=== PATIENT | female | born 1935 | race Caucasian/White ===

== ENCOUNTER 2017-03-02 16:27 | Inpatient (IN) | payer MEDICARE, OTHER ==
[2017-03-02] VITALS: BP 157/66; PULSE 67; RESP 18; TEMP 96.7; O2SAT 99
[~2017-03-02] VITALS: Ht 166.4 cm; Wt 69.8 kg
[~2017-03-02 16:27] MED LIST: ACET-2723 PO; ASPI-730 PO; ATEN-36 PO; ATOR80TA76 PO; CARB15DR82 BOTH EYES; WARF2.5T41 PO
--- OUTSIDE RECORDS SUMMARY | 2017-03-02 16:36 | XMS REPORT | Continuity of Care Document ---
Author Author [facility] Organization [facility] Address Unknown Phone Unavailable Support Name Relationship Address Phone JAVIER ONEAL MD Caregiver [address] [place] [address] Unavailable MISTY LEWIS MD Caregiver [address] [place] [id number] Unavailable DENISA GARCIA Next Of Kin [address] [place] [phone] Insurance Providers Guarantor Amber Hughes Address [address] [address] Email DENIED/NO TO PT PORT Payer Medicare Policy Number [id number] Subscriber's Name Amber Hughes 17 Self Effective Date 99 Payer [place] Policy Number [id number] Subscriber's Name Amber Hughes Relationship 18 Self Group Number [id number] Chief Complaint and Reason for Visit Chief Complaint Eye Problems Reason for Visit Retinal detachment Problems Active Problems Medical Problem Onset Date Status Heart palpitations Unknown Acute Heart palpitations Unknown Acute Vertigo Unknown Acute Past Problems Medical Problem Onset Date Retinal detachment Unknown Medications Current Home Medications Medication Dose Units Route Directions Days Qty Instructions Start Date Acetaminophen (Tylenol Extra Strength) 500 Mg Tablet 1 Tab Oral Every 6 Hours as needed for Pain 10 Days 40 Tablet 11/30/16 Aspirin 325 Mg Tablet 1 Tab Oral Daily 05/03/09 Atenolol 25 Mg Tablet 0.5 Tab Oral Daily 03/01/14 Atorvastatin Calcium 80 Mg Tablet 1 Tab Oral Daily 08/31/15 Carboxymethylcellulose Sodium (Refresh Tears) 15 Ml Drops 1 Drop Both Eyes Twice A Day 08/31/15 Warfarin Sodium (Coumadin) 2.5 Mg Tablet 1 Tab Oral Daily Past Home Medications Medication Directions Ordered Status Acetaminophen (Tylenol Extra Strength) 500 Mg Tablet, 1 Tab Oral Every 6 Hours as needed for Pain 11/30/16 Discontinued Acetaminophen (Tylenol Extra Strength) 500 Mg Tablet, 1 Tab Oral Every 6 Hours as needed for Pain 08/31/15 Discontinued Ezetimibe/Simvastatin (Vytorin 10/80 Tablet) 1 Tab Tablet, 1 Tab Oral Bedtime 05/04/09 Discontinued Social History Social History Problem Response Recorded Date/Time Onset Date Status Hx Substance Use No 11/30/2016 8:37am Not Applicable Not Applicable Hx Alcohol Use No 11/30/2016 8:37am Not Applicable Not Applicable Tobacco Usage none 03/01/2014 6:38pm Not Applicable Not Applicable Query Response Start Date Stop Date Smoking Status Never smoker Hospital Discharge Instructions No hospital discharge instructions. Plan of Care Discharge Date 11/30/16 10:17am Disposition 01 DISCHARGED HOME, SELF-CARE Condition at Discharge Stable Instructions/Education Provided DI for Detached Retina Prescriptions See Medication Section Referrals JAVIER ONEAL MD Address: [address] [place] [address] [phone] Additional Instructions/Education Via Dr. Aquino's office tomorrow morning at [address] [place] [id number] Care Plan and Goals Physician Care Plan Problem: Retinal detachment Goal: Follow up with primary care provider Instructions: Take medications and follow care plan as discussed/written Functional Status No functional status results. Allergies, Adverse Reactions, Alerts Allergen Type Severity Reaction Status Last Updated Sulfa (Sulfonamide Antibiotics) Allergy Intermediate HIVES Active 11/30/16 Immunizations Query Response on File Recorded Date/Time Hx Influenza Vaccination Y fall 200703/01/14 8:55pm Hx Pneumococcal Vaccination Y CURRENT 03/01/14 8:55pm Hx Influenza Vaccination Y fall 200703/01/14 8:55pm Influenza Vaccine Hx "NOT YET" - "I AM SUPPOSED TO GET IT THIS NEXT THURSDAY" 08/31/15 1:12pm Tdap Vaccine Hx UNKNOWN - SKIN INTACT 11/30/16 8:23am Vital Signs Acute Vital Signs Vital Response Date/Time Temperature (Fahrenheit) 97.5 deg F (96.8 - 99.1) 11/30/2016 8:23am Temperature (Calculated Celsius) 36.16425 degrees C (36.0 - 37.3) 11/30/2016 8:23am Pulse Rate (adult) 78 bpm (60 - 100) 11/30/2016 10:12am Respiratory Rate 16 breaths/min (10 - 20) 11/30/2016 10:12am O2 Sat by Pulse Oximetry 98 % (90 - 100) 11/30/2016 10:12am Blood Pressure 158/74 mm Hg 11/30/2016 10:12am Height (Feet) 5 feet 11/30/2016 8:23am Height (Inches) 5.50 inches 11/30/2016 8:23am Weight (Kilograms) 69.900 kg 11/30/2016 8:23am Body Mass Index (BMI) 25.0 11/30/2016 8:23am Results Laboratory Results Test Name Result Units Flags Reference Collection Date/Time Result Date/ Time Comments Triglycerides Level 92 MG/DL 35-135 11/12/2016 10:18am 11/13/2016 1: 14am HDL Cholesterol Direct 49 MG/DL 40-60 11/12/2016 10:18am 11/13/2016 1: 14am LDL Cholesterol Direct 59.25 MG/DL L 100-129 11/12/2016 10:18am 2015 1:25am Total Creatine Kinase 85 U/L 30-135 11/12/2016 10:18am 11/12/2016 10: 31am White Blood Count 6.4 T/MM3 4.5-11.0 11/30/2016 8:55am 11/30/2016 9: 11am Red Blood Count 4.83 M/MM3 4.00-5.20 11/30/2016 8:55am 11/30/2016 9: 11am Hemoglobin 13.9 GM/DL 12-16 11/30/2016 8:55am 11/30/2016 9:11am Hematocrit 41.8 % 36-46 11/30/2016 8:55am 11/30/2016 9:11am Mean Corpuscular Volume 86.5 UM3 80-100 11/30/2016 8:55am 11/30/2016 9: 11am Mean Corpuscular Hemoglobin 28.8 UUG 26-34 11/30/2016 8:55am 2016 9:11am Mean Corpuscular Hemoglobin Concent 33.3 GM/DL 31-37 11/30/2016 8:55am 11/30/2016 9:11am RDW Standard Deviation 40.9 FL 36.9-50.2 11/30/2016 8:55am 11/30/2016 9 :11am Platelet Count 226 T/MM3 130-400 11/30/2016 8:55am 11/30/2016 9:11am Mean Platelet Volume 10.2 UM3 9.4-12.4 11/30/2016 8:55am 11/30/2016 9: 11am Neutrophils (%) (Auto) 55.6 % 33-66 11/30/2016 8:55am 11/30/2016 9: 11am Lymphocytes (%) (Auto) 36.3 % 23-45 11/30/2016 8:55am 11/30/2016 9: 11am Monocytes (%) (Auto) 6.3 % 0-9.0 11/30/2016 8:55am 11/30/2016 9:11am Eosinophils (%) (Auto) 1.1 % 0-4 11/30/2016 8:5511/30/2016 9:11am Basophils (%) (Auto) 0.5 % 0-2 11/30/2016 8:5511/30/2016 9:11am Immature Granulocyte % (Auto) 0.2 % 0.0-0.5 11/30/2016 8:552016 9:11am Absolute Neutrophils (auto) 3.6 T/MM3 1.8-7.7 11/30/2016 8:55am 2016 9:11am Absolute Lymphocytes (auto) 2.3 T/MM3 1-4.8 11/30/2016 8:55am 2016 9:11am Absolute Monocytes (auto) 0.4 T/MM3 0-0.8 11/30/2016 8:55am 11/30/2016 9:11am Absolute Eosinophils (auto) 0.1 T/MM3 0-0.5 11/30/2016 8:552016 9:11am Absolute Basophils (auto) 0.0 T/MM3 0-0.2 11/30/2016 8:55am 11/30/2016 9:11am Absolute Immature Granulocyte (auto 0.01 T/MM3 0.00-0.03 11/30/2016 8: 55am 11/30/2016 9:11am Prothromb Time International Ratio 2.46 H 0.76-1.04 11/30/2016 8:55am 11/30/2016 9:10am THERAPUTIC RANGE=2.00-3.00 FOR ANTI-THROMBOSIS THERAPUTIC RANGE=2.50-3.50 FOR IMPLANTED VALVE Icterus Index < 2 0-7 11/30/2016 8:55am 11/30/2016 9:15am Chemistry Specimen Hemolysis < 15 0-25 11/30/2016 8:55am 11/30/2016 9 :15am 0-25: Specimen Exhibited No Hemolysis. Turbidity < 20 0-20 11/30/2016 8:55am 11/30/2016 9:15am Sodium Level 139 MEQ/L 134-144 11/30/2016 8:55am 11/30/2016 9:15am Potassium Level 4.2 MEQ/L 3.6-5 11/30/2016 8:55am 11/30/2016 9:15am Chloride Level 102 MEQ/L 98-107 11/30/2016 8:55am 11/30/2016 9:15am Carbon Dioxide Level 26 MEQ/L 22-30 11/30/2016 8:55am 11/30/2016 9: 15am Anion Gap 11 MEQ/L 5-15 11/30/2016 8:55am 11/30/2016 9:15am Blood Urea Nitrogen 16.0 MG/DL 7-17 11/30/2016 8:55am 11/30/2016 9: 15am Creatinine 0.7 MG/DL 0.7-1.2 11/30/2016 8:55am 11/30/2016 9:15am BUN/Creatinine Ratio 23 RATIO 6-26 11/30/2016 8:55am 11/30/2016 9:15am Glomerular Filtration Rate Calc 80 11/30/2016 8:55am 11/30/2016 9: 15am Glucose Level 97 MG/DL 65-110 11/30/2016 8:55am 11/30/2016 9:15am Calculated Osmolality 269 MOSM/KG 261-280 11/30/2016 8:55am 11/30/2016 9:15am Calcium Level 9.1 MG/DL 8.4-10.2 11/30/2016 8:55am 11/30/2016 9:15am Total Bilirubin 0.70 MG/DL 0.20-1.30 11/30/2016 8:55am 11/30/2016 9: 15am Alkaline Phosphatase 105 U/L 38-126 11/30/2016 8:55am 11/30/2016 9: 15am Total Protein 7.8 G/DL 6.3-8.2 11/30/2016 8:55am 11/30/2016 9:15am Albumin 4.2 G/DL 3.5-5.0 11/30/2016 8:55am 11/30/2016 9:15am Globulin 3.6 G/DL 2.4-3.6 11/30/2016 8:55am 11/30/2016 9:15am Albumin/Globulin Ratio 1.2 RATIO 1.1-2.2 11/30/2016 8:55am 11/30/2016 9 :15am Aspartate Amino Transf (AST/SGOT) 31 U/L 14-36 11/30/2016 8:55am 2016 9:15am Alanine Aminotransferase (ALT/SGPT) 35 U/L 9-52 11/30/2016 8:55am 11/30 9:15am Troponin I 0.012 ng/ml 0-0.12 11/30/2016 8:55am 11/30/2016 9:26am Troponin values with a difference of 55% increase from orginal troponin value represent a true biological DELTA value. (%increase Calc=Orginal Troponin value, divided by subsequent Troponin value, multiplied by 100) Name: AMBER HUGHES Unit #: [id number] : 1935 Sex: F Admit Date: Loc / Svc: ED Discharge Date: DIAGNOSTIC IMAGING REPORT Report #: [id number] [facility] TEJAL [place] Indication: ITS.REASON: Evaluate for stroke loss of vision right eye PROCEDURE: CT HEAD W/O CONTRAST: Encounter: Initial Comparison: August 31, 2015 Technique: Axial CT images through the head were performed without contrast. Iterative Reconstruction dose reducing technique was utilized. FINDINGS: The ventricles are of normal size, shape, and contour for the patient's age. There are scattered areas of low attenuation in the white matter which most likely represent changes from chronic microvascular ischemia. The brainstem, cerebellum, and cerebral hemispheres otherwise have a normal morphology and CT attenuation. There is no evidence of midline displacement. No hemorrhage, signs of acute territorial stroke, mass effect, mass lesions, or edema is evident. The visualized portions of the skull base, midface, and calvarium demonstrate no abnormality. The paranasal sinuses are well aerated and free of significant disease. The tympanic and mastoid cavities appear normal. IMPRESSION: No acute intracranial abnormality or hemorrhage. Stable head CT. There is a preliminary report by virtual radiologic. . Procedures Procedure Status Date Provider(s) Routine venipuncture Completed 11/12/16 Comprehen metabolic panel Completed 11/12/16 Assay of ck (cpk) Completed 11/12/16 Assay of lipoprotein Completed 11/12/16 Assay of blood lipoprotein Completed 11/12/16 Assay of triglycerides Completed 11/12/16 Prothrombin time Completed 11/12/16 Encounters Encounter Location Arrival/Admit Date Discharge/Depart Date Attending Provider Departed Emergency Room [facility] 11/30/16 8:21am 11/30/16 10: 17am MISTY LEWIS MD Registered Clinic [facility] 11/12/16 10:00am FREDERICK BLANCHARD MD Discharged Recurring [facility] 10/08/16 12:26pm 11/15/16 11: 19pm FREDERICK BLANCHARD MD Recent Diagnosis
--- OUTSIDE RECORDS SUMMARY | 2017-03-02 16:36 | XMS REPORT | Continuity of Care Document ---
Author Author [facility] Organization [facility] Address Unknown Phone Unavailable Allergies Medications Problems Procedures Code Description Performed By Performed On 14.54 DETACH RETINA LASER COAG Jerome Aquino MD 11/04/2013 14.74 MECH VITRECTOMY NEC Jerome Aquino MD 11/04/2013 Results Test Result Range HEMOGLOBIN - 11/04/13 15:16 MEAN CELL VOLUME 86.5 fl 80.0-100.0 HEMOGLOBIN 13.6 gm/dL 12.0-16.0 METABOLIC PANEL, BASIC - 11/04/13 15:16 POTASSIUM 4.5 mmol/L 3.5-5.3 EST GFR (MDRD) > 60 mL/min > 59 ANION GAP 10 mmol/L 5-15 EST CrCl (CG) 58 mL/min > 59 GLUCOSE 93 mg/dL 70-99 CALCIUM 8.6 mg/dL 8.5-10.1 BLOOD UREA NITROGEN 16 mg/dL 7-20 CREATININE 0.7 mg/dL 0.6-1.0 SODIUM 136 mmol/L 135-148 CHLORIDE 100 mmol/L 98-110 CARBON DIOXIDE 26 mmol/L 21-32 PROTHROMBIN TIME WITH INR - 11/04/13 15:37 INTERNATIONAL NORMAL RATIO 2.2 0.9-1.1 PROTHROMBIN TIME 23.6 sec 9.3-12.2 Encounters ACCT No. Visit Date/Time Discharge Status Pt. Type Provider Facility Loc./Unit Complaint [id number] 11/04/2013 14:10:00 2012 19:20:00 DIS Outpatient Kenia VASQUEZ, Jerome Richey [facility] KYLE
--- OUTSIDE RECORDS SUMMARY | 2017-03-02 16:36 | XMS REPORT | Referral Summary ---
Author Author [facility], [facility] Organization [facility] Address Unknown Phone Unavailable Care Team Providers Care Clothes Presser Name Role Phone Wiley Maddox Primary Care Physician [phone] Encounter VC Date(s): 09/18/16 - 09/18/16 [facility], [address] [place] [address] [place] Discharge Diagnosis: Encounter for removal of sutures Discharge Disposition: 01-Home or Self Care Attending Physician: Steven Maddox MD Admitting Physician: Steven Maddox MD Vital Signs Most recent to 1 oldest [Reference Range]: Temperature Tympanic 36 degC [36.6-38.1 degC] *LOW* (09/18/16 2:12 PM) Peripheral Pulse 87 bpm Rate [60-100 bpm] (09/18/16 2:12 PM) Blood Pressure 121/50 mmHg [90-140/60-90 mmHg] (09/18/16 2:12 PM) Problem List Condition Effective Dates Status Health Status Informant Chronic interstitial Active cystitis (disorder)(Confirmed ) Closed dislocation Active of thumb(Confirmed) Closed dislocation Active of thumb(Confirmed) Closed dislocation Active of thumb(Confirmed) Coronary Active arteriosclerosis (disorder)(Confirmed ) Coronary artery Active disease(Confirmed)1 Hx of Active hypercoagulable anticardiolipin(Conf irmed)2 Hyperlipidemia(Confi Active rmed)3 Painless microscopic Active hematuria(Confirmed) 4 Dyslipidemia(Confirm Active ed) Dermatophytosis of Active nail(Confirmed)5 Chronic pelvic pain Active syndrome(Confirmed)6 PAD(Confirmed)7 Active Peripheral vascular Active disease (disorder)(Confirmed ) Postmenopausal Active HRT(Confirmed)8 Retinal Active detachment(Confirmed ) TIA(Confirmed)9 Active Trigonitis(Confirmed Active )10 Vitamin D deficiency Active (disorder)(Confirmed ) 1See conversion document. 2See conversion document. 3See conversion document. 4See conversion document. 5See conversion document. 6See conversion document. 7See conversion document. 8See conversion document. 9see conversion document. 10See conversion document. Allergies, Adverse Reactions, Alerts Substance Reaction Severity Status sulfamethoxazole Active sulfanilamide topical Itching Active Medications aspirin 0 Refill(s) Start Date: 04/28/14 Status: Ordered atenolol 25 mg oral tablet 1 tabs, Oral, Daily, 0 Refill(s) Start Date: 04/28/14 Status: Ordered atorvastatin 80 mg oral tablet tabs, Oral, Bedtime (once a day), 0 Refill(s) Start Date: 02/08/15 Status: Ordered Tylenol Extra Strength 500 mg, Oral, qPM, 0 Refill(s) Start Date: 05/12/16 Status: Ordered warfarin Daily, 0 Refill(s) Start Date: 04/28/14 Status: Ordered Results No data available for this section Immunizations Vaccine Date Refusal Reason tetanus/diphth/pertuss (Tdap) adult/adol 07/31/06 influenza virus vaccine, inactivated 08/11/16 influenza virus vaccine, inactivated 09/04/15 influenza virus vaccine, inactivated1 08/29/14 influenza virus vaccine, live 09/01/13 influenza virus vaccine, live 09/06/12 pneumococcal 23-polyvalent vaccine 01/14/02 1Location History: See scanned document Procedures Procedure Date Related Diagnosis Body Site Cystoscopy, urethral calibration, 05/04/09 hydrodistention, and SLT laser vaporization1 Cataract, left2 2009 Cataract, right3 2008 Cardiac bypass4 1999 MMK5 1995 CABG6 1992 Hysterectomy - NABIL/BSO7 1988 Cholecystectomy Laser eye surgery8 1See conversion document. 2See conversion document. 3See conversion document. 4See conversion document. 5See conversion document. 6See conversion document. 7See conversion document. 8See conversion document. Social History Social History Type Response Smoking Status Never smoker Assessment and Plan Extracted from: Title: OV Author: Steven Maddox MD Date: 09/18/16 Impression and Plan Diagnosis Encounter for removal of sutures ([id number]-EV Z48.02, Discharge, Medical).
--- OUTSIDE RECORDS SUMMARY | 2017-03-02 16:36 | XMS REPORT | Referral Summary ---
Author Author [facility], [facility] Organization [facility] Address Unknown Phone Unavailable Care Team Providers Care Leaf Stripper Name Role Phone Wiley Maddox Primary Care Physician [phone] Encounter VC Date(s): 09/08/16 - 09/08/16 [facility], [address] [place] [address]- Discharge Diagnosis: Pigmented skin lesion of uncertain nature Discharge Diagnosis: Pain of right thumb Discharge Disposition: 01-Home or Self Care Attending Physician: Steven Maddox MD Admitting Physician: Steven Maddox MD Vital Signs Most recent to 1 oldest [Reference Range]: Temperature Tympanic 35.4 degC [36.6-38.1 degC] *LOW* (09/08/16 12:53 PM) Peripheral Pulse 82 bpm Rate [60-100 bpm] (09/08/16 12:53 PM) Blood Pressure 138/68 mmHg [90-140/60-90 mmHg] (09/08/16 12:53 PM) Problem List Condition Effective Dates Status [...] smoker Assessment and Plan Extracted from: Title: Lesion excision of dorsum Author: Steven Maddox MD Date: 09/08 right foot Assessment/Plan 1.Pigmented skin lesion of uncertain nature 2.Pain of right thumb Regarding the thumb pain, 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 I reviewed the prior x-rays at the time of injury and April and it does extend down to the joint surface. We discussed that and I offered re-x-ray/ reevaluation but she wants to just observe for now. Discussed post procedure care and will follow-up again in 10-14 days for suture removal. Specimen was sent for pathology analysis.
--- NOTE | 2017-03-02 16:40 | NUR ---
Arrival Patient arrived on unit at this time via wheelchair. Patient moved self from wheelchair to bed without assistance. Patient oriented to unit. Will continue to monitor.
[2017-03-02 16:59] VITALS: BP 168/78; PULSE 70; RESP 16; TEMP 96.6; O2SAT 97
[2017-03-02 17:01] VITALS: Ht 166.4 cm; Wt 69.8 kg
[2017-03-02] MEDS ORDERED: NORMAL SALINE 500 ML IV SCH (17:05)
[2017-03-02] MEDS ORDERED: PANTOPRAZOLE 40mg INJECTION IV ONE (17:05)
[2017-03-02] MEDS ORDERED: ONDANSETRON 4mg/2ml INJECTION IV PRN (17:15)
--- NOTE | 2017-03-02 17:43 | HPPDOC ---
WILNER LANCE WATCH CRYSTAL CUTTER 03/02/17 1656: HPI - Adult Date DATE: 03/02/17 TIME: 16:52 General Chief Complaint: GI bleed History of Present Illness Amber Hughes is an 82 y/o lady directly admitted from Dr. Maddox's office. She presented to his office for a routine f/u visit regarding a breast lump that has been present for about 4 wks, and she also mentioned that she had 12-13 bright-red colored stools since [id number]. She has had some lower abdominal discomfort for most of the day. She denies any nausea or vomiting, but hasn't felt like eating anything. She notes weakness, fatigue, and lightheadedness, but denies SOA or chest pain. She denies fever/chills, congestion, dysphagia, urinary problems, or leg swelling. Hgb in the office was 13.3, INR was 1.7, and she was hemodynamically stable. Dr. Maddox noted hemorrhoids, but did not feel convinced that these are the source of the bleeding. She was placed into observation status, and Dr. Lincoln was consulted for the GI bleed. Past Medical History Past Medical History Patient's Medical History: (1) CAD (coronary artery disease) (2) Dyslipidemia (3) TIA (transient ischemic attack) (4) Hypercoagulable state (5) Anticardiolipin antibody positive (6) PAD (peripheral artery disease) (7) PVD (peripheral vascular disease) (8) Microscopic hematuria (9) Vitamin D deficiency (10) Chronic interstitial cystitis with hematuria Surgical History Patient's Surgical History: Echocardiogram on 04/30/15 showed an EF of 55-65%, diastolic function was preserved. She had mild MR, TR and PI. Mild to moderate AI. 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 Colonoscopy - uncertain date Cystoscopy in 2008 Bilateral cataracts, 2009 Cardiac bypass in 1999. MMK in 1995 CABG in 1992 NABIL/BSO in 1988 Cholecystectomy. Laser eye surgery Current Medications Home Meds Reported Medications Acetaminophen (Acetaminophen) 500 Mg Tablet, 1 TAB PO HS, #60 TAB 1 Refill 03/02/17 Carboxymethylcellulose Sodium (Refresh Tears) 15 Ml Drops, 1 DROP BOTH EYES BID 08/31/15 Atorvastatin Calcium (Atorvastatin Calcium) 80 Mg Tablet, 0.5 TAB PO HS 08/31/15 Atenolol (Atenolol) 25 Mg Tablet, 0.5 TAB PO DAILY 03/01/14 Warfarin Sodium (Coumadin) 2.5 Mg Tablet, 1 TAB PO DAILY 05/03/09 Aspirin (Aspirin) 325 Mg Tablet, 1 TAB PO DAILY 05/03/09 Discontinued Scripts Acetaminophen (Tylenol Extra Strength) 500 Mg Tablet, 1 TAB PO Q6H Y for PAIN for 10 Days, #40 TAB Prov:MISTY LEWIS MD 11/30/16 Allergies: Coded Allergies: Sulfa (Sulfonamide Antibiotics) (Verified Allergy, Intermediate, HIVES, ) pneumococcal vaccine (Verified Allergy, Intermediate, 03/02/17) redness and swelling Family History Family History: Mother had dementia, heart disease. Father had heart disease. Sister had heart disease. Brother of Bright's disease at age 19. 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 Maddox CV - Dr. Pedro Review of Systems Constitutional: REPORTS: appetite decrease, weakness, DENIES: chills, fever Eyes Vision: DENIES: vision changes ENMT Sinuses: NOT FOUND: congestion, rhinorrhea Mouth/Throat: DENIES: change in swallowing Cardiovascular DENIES: chest pain, dyspnea on exertion Vascular: DENIES: pedal edema, unilateral swelling Pulmonary Respiratory: cough (chronic cough), DENIES: dyspnea GI Upper Abdomen: see HPI, DENIES: nausea, vomiting Lower Abdomen: blood in stool General: DENIES: dysuria Musculoskeletal General: DENIES: joint pain Integumentary Skin: DENIES: rash Neurological General: DENIES: headache, memory disturbances, seizures, syncope Psychiatric Psychiatric: DENIES: memory impairment Hematologic/Lymphatic easy bruising Allergic/Immunological DENIES: frequent infections All Other Systems All Other Systems: Reviewed (remainder of 10-point ROS Neg.) Physical Exam General General Nourishment: well nourished, well developed, thin General Body Habitus: well groomed Height (Feet): 5 Height (Inches): 5.50 Eyes Brief: FOUND: PERRL, NOT FOUND: scleral icterus ENMT Brief: NOT FOUND: mucosa moist (dry mucous membranes), pharnyx erythema Neck Brief: NOT FOUND: nuchal rigidity Respiratory Auscultation: FOUND: normal, NOT FOUND: rales, rhonchi, wheezes Breasts: FOUND: mass (tender, firm mass to left outer breast) Cardiovascular Auscultation: FOUND: S1, S2, regular Peripheral Pulses: 2+: Dorasalis Pedis (L), Dorsalis Pedis (R), Posterior Tibial (L), Posterior Tibial (R), Radial (L), Radial (R) Edema: 0: Anasarca, Arm (L), Arm (R), Face, Leg (L), Leg (R) Abdomen Inspection: NOT FOUND: distention Palpation: FOUND: soft, NOT FOUND: involuntary guarding, rebound, tender, voluntary guarding Auscultation: FOUND: normo active Lymphatic (brief) Lymphatic Brief: NOT FOUND: adenopathy Musculoskeletal (brief) Musculoskeletal Brief: NOT FOUND: deformity Integumentary (brief) Integumentary Brief: FOUND: dry, warm Integumentary General: FOUND: dry, warm Color: FOUND: pink Neurologic (brief) Neurological Brief: FOUND: cranial 2-12 intact (grossly intact), NOT FOUND: facial droop, ptosis Neurologic GCS Eye Opening: (4)Spontaneous GCS Verbal: (5)Oriented GCS Motor: (6)Obeys Commands RN Documented GCS Total: 15 Psychiatric (brief) FOUND: alert, attentive, normal affect, oriented Assessment & Plan Problems: (1) GI bleed Status: Acute (2) Breast mass, left (3) CAD (coronary artery disease) Status: Chronic (4) TIA (transient ischemic attack) Status: Chronic (5) Hypercoagulable state Status: Chronic (6) Anticardiolipin antibody positive Status: Chronic Assessment & Plan: On Coumadin (7) PVD (peripheral vascular disease) Status: Chronic (8) PAD (peripheral artery disease) Status: Chronic (9) Chronic interstitial cystitis with hematuria Status: Chronic (10) Dyslipidemia Status: Chronic Assessment GI bleed left breast mass hypercoagulable state d/t anticardiolipin antibody Plan/Intensity of Service Admitted to observation status for GI bleed. Trend serial hemoglobin; type and screen. NPO. Consult Dr. Lincoln for possible colonoscopy and left breast biopsy. Start NS at 100 ml/hr and Protonix IV. Hold Coumadin and ASA. INR at [facility] was 1.7. Check CMP; monitor rhythm on telemetry. Code status - Full code. She has a living will and DPOA. Discussed with Dr. Bates. DVT Prophylaxis: SCD'S Code Status Hospital Course Summary Disclaimer The hospital course summary below is not to be considered part of the above Progress Note. Hospital Course Summary 03/02/17 Admitted to observation status for GI bleed. Trend serial hemoglobin; type and screen. NPO. Consult Dr. Lincoln for possible colonoscopy and left breast biopsy. Start NS at 100 ml/hr and Protonix IV. Hold Coumadin and ASA. INR at [facility] was 1.7. Check CMP; monitor rhythm on telemetry. Code status - Full code. She has a living will and DPOA. DAVID BATES MD 03/02/17 2144: Past Medical History Current Medications Home Meds Reported Medications Acetaminophen (Acetaminophen) 500 Mg Tablet, 1 TAB PO HS, #60 TAB 1 Refill 03/02/17 Carboxymethylcellulose Sodium (Refresh Tears) 15 Ml Drops, 1 DROP BOTH EYES BID 08/31/15 Atorvastatin Calcium (Atorvastatin Calcium) 80 Mg Tablet, 0.5 TAB PO HS 08/31/15 Atenolol (Atenolol) 25 Mg Tablet, 0.5 TAB PO DAILY 03/01/14 Warfarin Sodium (Coumadin) 2.5 Mg Tablet, 1 TAB PO DAILY 05/03/09 Aspirin (Aspirin) 325 Mg Tablet, 1 TAB PO DAILY 05/03/09 Discontinued Scripts Acetaminophen (Tylenol Extra Strength) 500 Mg Tablet, 1 TAB PO Q6H Y for PAIN for 10 Days, #40 TAB Prov:MISTY LEWIS MD 11/30/16 Allergies: Coded Allergies: Sulfa (Sulfonamide Antibiotics) (Verified Allergy, Intermediate, HIVES, ) pneumococcal vaccine (Verified Allergy, Intermediate, 03/02/17) redness and swelling Assessment & Plan Assessment I have independently evaluated and examined this patient. I reviewed the chart, the patient's history, and the WATCH CRYSTAL CUTTER's documented findings as above. We discussed and formulated the assessment and plan as above with additions as below: Mrs. Hughes presents with abrupt onset of rectal bleeding at 3 AM this morning followed by multiple stools over the next 10 hours with accompanying lightheadedness. She denies syncope, nausea, dyspepsia, abdominal pain/cramping , or tenesmus. Last colonoscopy was more than 20 years ago and there is no known history of diverticulosis or other colonic pathology. She was referred for admission due to suggested moderately high volume blood loss, development of symptomatic lightheadedness, and anticoagulation with risk of ongoing bleeding. Examination reveals an alert and oriented patient who denies abdominal distress but winces intermittently. Respirations are nonlabored and lungs clear. Cardiac rhythm regular with normal S1 and S2. The abdomen is soft and nontender to palpation with bowel sounds present. Multiple mass in the upper outer quadrant of the left breast noted. Initial hemoglobin in the office 13.3 dropping to 12.1 on arrival at the hospital. Continue to monitor serially. INR 1.7 in the office. Hold warfarin and reassess INR in the morning. Dr. Lincoln consulted for anticipated colonoscopy and breast biopsy. Likely diverticular bleed. Given anticoagulation and symptoms on presentation I anticipate greater than 2 nights stay for medical stabilization. Converted to inpatient. Plan/Intensity of Service Discussed with Dr. Maddox. Outpatient records reviewed, laboratory data reviewed. WILNER LANCE APRN Mar 02, 2017 16:56 DAVID BATES MD Mar 02, 2017 21:44
[2017-03-02] MEDS ORDERED: ACET-62 PO (17:44)
--- NOTE | 2017-03-02 18:06 | CONSPD ---
Consultation Info Date DATE: 03/02/17 TIME: 18:02 Date of Consultation: Mar 02, 2017 Reason for Consultation: breast biopsy and colonoscopy HPI - Adult Date DATE: 03/02/17 TIME: 18:02 General Chief Complaint: GI bleed History of Present Illness Per Dr. Lincoln Past Medical History Past Medical History Patient's Medical History: (1) CAD (coronary artery disease) (2) Dyslipidemia (3) TIA (transient ischemic attack) (4) Hypercoagulable state (5) Anticardiolipin antibody positive (6) PAD (peripheral artery disease) (7) PVD (peripheral vascular disease) (8) Microscopic hematuria (9) Vitamin D deficiency (10) Chronic interstitial cystitis with hematuria Surgical History Patient's Surgical History: Echocardiogram on 04/30/15 showed an EF of 55-65%, diastolic function was preserved. She had mild MR, TR and PI. Mild to moderate AI. 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 Colonoscopy - uncertain date Cystoscopy in 2008 Bilateral cataracts, 2008 Cardiac bypass in 1999. MMK in 1995 CABG in 1992 NABIL/BSO in 1988 Cholecystectomy. Laser eye surgery Current Medications Home Meds Reported Medications Acetaminophen (Acetaminophen) 500 Mg Tablet, 1 TAB PO HS, #60 TAB 1 Refill 03/02/17 Carboxymethylcellulose Sodium (Refresh Tears) 15 Ml Drops, 1 DROP BOTH EYES BID 08/31/15 Atorvastatin Calcium (Atorvastatin Calcium) 80 Mg Tablet, 0.5 TAB PO HS 08/31/15 Atenolol (Atenolol) 25 Mg Tablet, 0.5 TAB PO DAILY 03/01/14 Warfarin Sodium (Coumadin) 2.5 Mg Tablet, 1 TAB PO DAILY 05/03/09 Aspirin (Aspirin) 325 Mg Tablet, 1 TAB PO DAILY 05/03/09 Discontinued Scripts Acetaminophen (Tylenol Extra Strength) 500 Mg Tablet, 1 TAB PO Q6H Y for PAIN for 10 Days, #40 TAB Prov:MISTY LEWIS MD 11/30/16 Allergies: Coded Allergies: Sulfa (Sulfonamide Antibiotics) (Verified Allergy, Intermediate, HIVES, ) pneumococcal vaccine (Verified Allergy, Intermediate, 03/02/17) redness and swelling Family History Family History: Mother had dementia, heart disease. Father had heart disease. Sister had heart disease. Brother of Bright's disease at age 19. 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 Advance Directives: Yes DPOA for Healthcare Only (pt does not have paperwork with her) GS Review of Systems General REPORTS other Ear, Nose, and Throat REPORTS vision problems (retinal detachement) Cardiovascular REPORTS chest pain (angina), REPORTS edema/swelling Respiratory REPORTS difficulty breathing (with exersion) Gastrointestional REPORTS blood in stools Genitourinary REPORTS blood in urine (microscopic) Musculoskeletal REPORTS muscle weakness Hematologic REPORTS easy bruising, REPORTS use of blood thinners 10-point Review of Systems otherwise negative except HPI GS Physical Exam Vital Signs Date Time Temp Pulse Resp B/P Pulse Ox O2 Delivery O2 Flow Rate FiO2 03/02/17 16:59 96.6 70 16 168/78 97 Room Air Height (Feet): 5 Height (Inches): 5.50 Weight (Kilograms): 68.300 BMI 25.9 DIVINE URIAS APRN Mar 02, 2017 18:06
[2017-03-02] MEDS: NORMAL SALINE 1,000 ML IV SCH (18:23)
[2017-03-02 18:42] LABS: HGB - HEMOGLOBIN 12.4 GM/DL (12-16)
[2017-03-02 18:52] LABS: ALBUMIN 3.7 G/DL (3.5-5.0); ALBUMIN/GLOBULIN RATIO 1.4 RATIO (1.1-2.2); ALKALINE PHOSPHATASE 98 U/L (38-126); ALT (SGPT) 35 U/L (9-52); ANION GAP 10 MEQ/L (5-15); AST (SGOT) 29 U/L (14-36); BUN/CREATININE RATIO 25 RATIO (6-26); CALCIUM 8.8 MG/DL (8.4-10.2); CHLORIDE 102 MEQ/L (98-107); CO2 - CARBON DIOXIDE 25 MEQ/L (22-30); CREATININE 0.6 MG/DL (0.7-1.2); GLOMERULAR FILTRATION RATE 95; GLUCOSE 96 MG/DL (65-110); POTASSIUM 4.3 MEQ/L (3.6-5); SODIUM 137 MEQ/L (134-144); TOTAL PROTEIN 6.3 G/DL (6.3-8.2)
[2017-03-02 20:26] VITALS: BP 157/66; PULSE 67; RESP 18; TEMP 96.7; O2SAT 97
--- NOTE | 2017-03-02 20:36 | CONSF ---
DATE OF CONSULTATION 03/02/2017 FINDINGS Mrs. Hughes is an 82-year-old female whom I was asked to see today as a new patient as a result of her history for rectal bleeding as well as in regards to a left breast mass. Patient informs me that about 3 o'clock this morning she was awakened with an urge to have a bowel movement. The patient states she went to the restroom and had a large bowel movement. Patient states that when she "looked at the water it was completely "bloody in nature." Upon questioning the patient she states that the blood was bright red in nature. Patient states that she had several additional bloody stools earlier this morning. Patient states that she had a scheduled appointment with her PCP today in regards to a "lump in her left breast." Patient informs me that she had notified her primary care physician about this rectal bleeding and was subsequently "stuck in the hospital." Upon questioning the patient she denies any prior history for rectal bleeding. States that her last colonoscopy was perhaps 20 years ago. She states that it was "normal." She denies any family history for colon cancer within a first-degree relative. She denies any element of abdominal pain or discomfort. She denies any history for fever or chills. Next, I focused the interview process in regards to the lump involving her left breast. Patient informs me that she noted the "lump" within her left breast about four to five weeks ago. She states that she had awakened and noted some pain within her breast and then began to palpate her breast and "noted that there was a hard spot". The patient states that this "lump" has been persistent and has not changed much in its overall size over the course of the last month. She continues to notice some intermittent discomfort within her left breast. She denies any prior history for "breast problems." She denies personal history for breast cancer in the past. She denies again any family history specifically for breast cancer within a first-degree relative. She states that she believes that her father's mother/paternal grandmother had breast cancer. Upon questioning the patient she denies any history for bloody nipple discharge. She denies any history for dimpling of the skin or inversion of her nipple. PAST MEDICAL HISTORY, PAST SURGICAL HISTORY, MEDICATIONS, ALLERGIES, SOCIAL HISTORY, FAMILY HISTORY, REVIEW OF SYSTEMS Performed by my nurse practitioner, Jesse Ballard APRN PHYSICAL EXAMINATION GENERAL: Mrs. Hughes is an 82-year-old female who this evening does not appear to be in acute distress. Vitals: Temperature 96.6, pulse 70, respirations 16, blood pressure 168/78, SAO2 97% on room air. HEENT: Normocephalic. Pupils are equally round and react to light and accommodation. CHEST: Clear to auscultation bilaterally. BREASTS: Visualization of the breasts does not reveal any evidence for skin dimpling or nipple retraction. Palpation of the right breast did not reveal any evidence for palpable abnormalities. No evidence for adenopathy noted within the right axilla. Attention was then focused to the left breast. Unfortunately, the patient was found have a very firm/hard/discrete mass involving the left breast from about the 2 o'clock position to the 4 to 5 o'clock position. This mass was about 3-4 cm in greatest diameter. The mass was freely mobile in nature and not fixated to the underlying chest wall. No other palpable abnormalities were noted within the left breast. No evidence for axillary lymphadenopathy noted on the left. HEART: Regular rate and rhythm. Normal S1 and S2 without gallops, murmurs or clicks. ABDOMEN: Palpation of the abdomen reveals it to be soft and nontender. I do not appreciate any evidence for hepatosplenomegaly nor abnormal masses. EXTREMITIES: Without clubbing, cyanosis, or edema. NEURO: Cranial nerves II-XII grossly intact. Patient is without focal motor or sensory deficits. LABORATORY/RADIOGRAPHIC EVALUATION The patient had a hemoglobin this afternoon that was 12.4. CMP was obtained on admission and found to be essentially within normal limits. ASSESSMENT 82-year-old female with presentation of rectal bleeding, most likely diverticular in nature. Patient with suspicious mass noted within the left breast upon physical examination. PLAN I agree with current management of the patient in regards to her bleeding. Serial hemoglobins have been ordered. The patient is being treated empirically for peptic ulcer disease and is on IV Protonix. I do believe we can go ahead and give the patient some clear liquids this evening. If her hemoglobin remains stable and she does not have additional bleeding, would recommend proceeding with bowel prep tomorrow and probable colonoscopy on Thursday. I do believe we need to document that there is not worrisome abnormality within her colon for the patient is on anticoagulation. In regards to her breast mass I would recommend that if we are able to proceed with additional diagnostic evaluation of this breast mass during this hospitalization that we go ahead and obtain a diagnostic left breast mammogram, left breast ultrasound, and screening right mammogram. If there is indeed a suspicious abnormality that corresponds with this abnormality noted within the left breast I would recommend that she undergo ultrasound-guided biopsy of this mass during her diagnostic evaluation. This may need to be done on an outpatient basis and not during this hospitalization. I did discuss the above proposed plan with the patient and her daughter who was present this evening. MAHESH
[2017-03-02] MEDS ORDERED: ACETAMINOPHEN 500 MG TABLET PO PRN (21:45)
[2017-03-02 22:51] LABS: HGB - HEMOGLOBIN 11.5 GM/DL (12-16)
[2017-03-02] MEDS: REFRESH CLASSIC Eye Drops 0.4ml Dropperette BOTH EYES SCH (22:51)
[2017-03-02] MEDS: ATORVASTATIN 40 MG TABLET PO SCH (22:51)
[2017-03-03] VITALS (10 sets, daily range): BP systolic 125–166; BP diastolic 56–91; PULSE 58–105; RESP 15–20; TEMP 97–97.5; O2SAT 97–99
[2017-03-03] MEDS: NORMAL SALINE 1,000 ML IV SCH ×2 (04:49→15:09)
[2017-03-03 05:16] LABS: BASOPHILS % (AUTO) 0.5 % (0-2); EOSINOPHILS # (AUTO) 0.1 T/MM3 (0-0.5); EOSINOPHILS % (AUTO) 1.7 % (0-4); HGB - HEMOGLOBIN 10.6 GM/DL (12-16); IMMATURE GRANULOCYTE # (AUTO) 0.01 T/MM3 (0.00-0.03); IMMATURE GRANULOCYTE % (AUTO) 0.2 % (0.0-0.5); LYMPHOCYTES # (AUTO) 2.9 T/MM3 (1-4.8); LYMPHOCYTES % (AUTO) 44.3 % (23-45); MEAN CORPUSCULAR HGB 28.6 UUG (26-34); MEAN CORPUSCULAR HGB CONC(MCHC 33.1 GM/DL (31-37); MEAN CORPUSCULAR VOLUME 86.5 UM3 (80-100); MEAN PLATELET VOLUME 10.6 UM3 (9.4-12.4); MONOCYTES # (AUTO) 0.4 T/MM3 (0-0.8); MONOCYTES % (AUTO) 6.2 % (0-9.0); NEUTROPHILS #(AUTO)-ABSOLUTE 3.1 T/MM3 (1.8-7.7); NEUTROPHILS % (AUTO) 47.1 % (33-66); WBC - WHITE BLOOD COUNT 6.6 T/MM3 (4.5-11.0)
[2017-03-03 05:27] LABS: INR 1.68 (0.76-1.04); PROTHROMBIN TIME 18.3 SEC (9.31-12.49)
--- NOTE | 2017-03-03 05:40 | NUR ---
PT IS ALERT AND ORIENTED. STAND BY ASSIST TO BATHROOM. PT HAS HAD MULTIPLE BLOODY STOOLS WITH POSSIBLE CLOTS IN THEM. PT DENIES DIZZINESS OR LIGHTHEADEDNESS, PT WS TOLD TO BE SURE TO REPORT ANY SYMPTOMS RIGHT AWAY, PT AGREED. IV IN THE LT HAND RUNNING NS AT 100. VITAL SIGNS STABLE.
[2017-03-03 06:28] LABS: ANION GAP 8 MEQ/L (5-15); BUN/CREATININE RATIO 25 RATIO (6-26); CALCIUM 8.1 MG/DL (8.4-10.2); CHLORIDE 106 MEQ/L (98-107); CO2 - CARBON DIOXIDE 24 MEQ/L (22-30); CREATININE 0.6 MG/DL (0.7-1.2); GLOMERULAR FILTRATION RATE 95; GLUCOSE 87 MG/DL (65-110); SODIUM 138 MEQ/L (134-144)
[2017-03-03] MEDS: PANTOPRAZOLE 40mg INJECTION IV SCH (08:35)
[2017-03-03] MEDS: REFRESH CLASSIC Eye Drops 0.4ml Dropperette BOTH EYES SCH ×2 (08:35→23:11)
[2017-03-03] MEDS: ATENOLOL 25 MG TABLET PO SCH (08:36)
--- NOTE | 2017-03-03 08:54 | PNSURG ---
Subjective DATE: 03/03/17 TIME: 08:44 Interval History Had at least 5 small bloody stools during the night, bright red, small amount, she states with the hat "at an angle, it did not cover the bottom of the hat". Denies dizziness, chest pain, SOA. She is eating toast, and this triggered another bloody stool during my visit. Objective Vital Signs Date Time Temp Pulse Resp B/P Pulse Ox O2 Delivery O2 Flow Rate FiO2 03/03/17 04:20 97.1 73 16 125/63 97 Room Air Height (Feet): 5 Height (Inches): 5.50 Weight (Kilograms): 68.300 BMI 25.9 General Appearance: Alert, Orientated x 3 Respiratory: FOUND: clear bilaterally Cardiac: FOUND: regular rate, regular rhythm Abdominal Brief: FOUND: BS normo active x4, NOT FOUND: tender Laboratory Item Value Date Time Prothromb Time International Ratio 1.68 H 03/03/17 0440 Laboratory Tests 03/02/17 18:18 03/03/17 04:33 Laboratory Tests 03/02/17 18:18 03/02/17 22:43 03/03/17 04:40 Assessment & Plan Problems: (1) Anticoagulant long-term use Status: Chronic (2) Breast mass, left Status: Acute (3) GI bleed Status: Acute Qualifiers: GI bleed type/associated pathology: unspecified gastrointestinal hemorrhage type Qualified Codes: K92.2 - Gastrointestinal hemorrhage, unspecified Assessment Continues with small amounts of blood in stool, and sounds like this pretty much stopped about midnight. HGB stable at 10.6. INR 1.68 this am. There is a 7:30 OR time available for colonoscopy tomorrow, will bowel prep today. Visited with MAAME Steiner regarding breast mass, she will check with disease case manager rn regarding proceeding with stereotactic biopsy at this admission or as outpatient later in the week or next week. DVT Prophylaxis: SCD'S Code Status Full Code Hospital Course Summary Disclaimer The visit summary below is not to be considered part of the above Progress Note. Hospital Course Summary 03/02/17 Admitted to observation status for GI bleed. Trend serial hemoglobin; type and screen. NPO. Consult Dr. Lincoln for possible colonoscopy and left breast biopsy. Start NS at 100 ml/hr and Protonix IV. Hold Coumadin and ASA. INR at [facility] was 1.7. Check CMP; monitor rhythm on telemetry. Code status - Full code. She has a living will and DPOA. DIVINE URIAS APRN Mar 03, 2017 08:47
[2017-03-03] MEDS ORDERED: POLYETHYL.GLYCOL 3350 BOTTLE 238 GM PO ONE (10:00)
--- NOTE | 2017-03-03 10:37 | NUR ---
CM CM IN TO VISIT PATIENT, SHE IS A&O. NO FAMILY IS PRESENT. PATIENT CAME IN FROM HER OWN HOME WHERE SHE LIVES ALONE, PRIOR TO ADMISSION DID NOT HAVE ANY PROBLEM WITH ADL'S. STATES WE WILL HAVE TO SEE WHAT HAPPENS, WILL CONTINUE TO FOLLOW THROUGH HOSPITALIZATION IF NEEDS ARISE. CM CONTACT INFORMATION PROVIDED. Addendum: 03/03/17 at 1038 by SKIP ELLISON RN Amended: Links added.
--- NOTE | 2017-03-03 10:45 | NUR ---
CM LACE SCORE IS 8 TODAY, NO FURTHER FOLLOW UP AT THIS TIME.
--- NOTE | 2017-03-03 10:48 | PNPDOC ---
WILNER LANCE OCCUPATIONAL HEALTH PHYSIOTHERAPIST 03/03/17 1041: Subjective Date DATE: 03/03/17 TIME: 10:38 Subjective Amber is about the same compared to yesterday. She had a small bowel movement this morning, and around midnight had a bloody bowel movement. She denies abdominal pain, but notes that it's just a bit uncomfortable. She still feels lightheaded. She's not nauseated, but doesn't feel like eating anything. Her nephew (and Business Management Intern) was also present - we discussed the risks and benefits of being on and off Coumadin. She is worried about not taking Coumadin but knows that it's too risky. We reviewed the plan for the day - cautious bowel prep, and if all goes well, colonoscopy tomorrow. Objective Vital Signs Vital signs Vital Signs Date Time Temp Pulse Resp B/P Pulse Ox O2 Delivery O2 Flow Rate FiO2 03/03/17 09:05 68 165/60 03/03/17 08:59 16 97 Room Air 03/03/17 08:00 97.0 Height (Feet): 5 Height (Inches): 5.50 Weight (Kilograms): 68.300 General General Appearance: Alert, Orientated x 3, Well Nourished, Well Developed, No Acute Distress Eyes (Brief) Eyes: FOUND: PERRL, NOT FOUND: scleral icterus ENMT (Brief) ENMT: FOUND: mucosa moist, NOT FOUND: pharnyx erythema Respiratory (Brief) Respiratory: FOUND: clear all smith, equal bilaterally Cardiovascular (Brief) Cardiac: FOUND: regular rate, regular rhythm Abdomen (Brief) Abdominal: FOUND: BS normo active x4, soft, NOT FOUND: distended, tender Extremities (Brief) Extremity : Side: Bilateral Extremity: leg Extremity Finding: NOT FOUND: edema Musculoskeletal (Brief) Musculoskeletal: NOT FOUND: deformity Integumentary (Brief) Integumentary: FOUND: dry, warm Psychiatric (Brief) Psychiatric: FOUND: alert, attentive, normal affect, oriented Laboratory Laboratory Laboratory Tests 03/02/17 18:18 03/03/17 04:33 Laboratory Tests 03/02/17 18:18 03/02/17 22:43 03/03/17 04:40 Assessment & Plan Problems: (1) GI bleed Status: Acute Qualifiers: GI bleed type/associated pathology: unspecified gastrointestinal hemorrhage type Qualified Codes: K92.2 - Gastrointestinal hemorrhage, unspecified (2) Anticardiolipin antibody positive Status: Chronic Assessment & Plan: On Coumadin (3) Hypercoagulable state Status: Chronic (4) Breast mass, left Status: Acute (5) CAD (coronary artery disease) Status: Chronic (6) TIA (transient ischemic attack) Status: Chronic (7) PVD (peripheral vascular disease) Status: Chronic (8) PAD (peripheral artery disease) Status: Chronic (9) 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 I spoke with Jesse Ballard this am - plan is to cautiously bowel prep and if this goes well, colonoscopy tomorrow. Acute blood loss anemia. Continue monitoring hgb, which has decreased 3 g since arrival. She has been typed and screened. She is symptomatic with lightheadedness, but hemodynamically stable. Orthostatic BP did not show decrease with change in position. Iatrogenic coagulopathy - INR still slightly high at 1.68. Coumadin and ASA are on hold. Left breast mass - will discuss with Dr. Bates and CM. (Note - daughter is a pharmacist and she has a niece who is a PA). DVT Prophylaxis: SCD'S Code Status Full Code Hospital Course Summary Disclaimer The hospital course summary below is not to be considered part of the above Progress Note. Hospital Course Summary 03/02/17 Admitted to observation status for GI bleed. Trend serial hemoglobin; type and screen. NPO. Consult Dr. Lincoln for possible colonoscopy and left breast biopsy. Start NS at 100 ml/hr and Protonix IV. Hold Coumadin and ASA. INR at [facility] was 1.7. Check CMP; monitor rhythm on telemetry. Code status - Full code. She has a living will and DPOA. 03/03/17 GI bleed, suspect diverticular in nature. I spoke with Jesse Ballard this am - plan is to cautiously bowel prep and if this goes well, colonoscopy tomorrow. Acute blood loss anemia. Continue monitoring hgb, which has decreased 3 g since arrival. She has been typed and screened. She is symptomatic with lightheadedness, but hemodynamically stable. Orthostatic BP did not show decrease with change in position. Iatrogenic coagulopathy - INR still slightly high at 1.68. Coumadin and ASA are on hold. Left breast mass - will discuss with Dr. Bates and CM. DAVID BATES MD 03/03/17 1300: Assessment & Plan Assessment I have independently evaluated and examined this patient. I reviewed the chart, the patient's history, and the OCCUPATIONAL HEALTH PHYSIOTHERAPIST's documented findings as above. We discussed and formulated the assessment and plan as above with additions as below: Mrs. Hughes denies lightheadedness or dizziness when I spoke with her but has continued to have bloody stools overnight with at least one described as moderate to large volume by the patient. No rectal pain or abdominal pain/cramping. Respirations are nonlabored and cardiac rhythm regular. Abdominal examination is unremarkable and without guarding or tenderness. Hemoglobin dropping slowly with most recent value of 10.9 late morning. Continue serial monitors of hemoglobin, colonoscopy tomorrow if status permits. Mammograms to be scheduled as an outpatient as soon as GI bleed stabilizes. Plan/Intensity of Service Discussed with case management, laboratory data reviewed. WILNER LANCE APRN Mar 03, 2017 10:41 DAVID BATES MD Mar 03, 2017 13:45
[2017-03-03 11:45] LABS: HGB - HEMOGLOBIN 10.9 GM/DL (12-16)
--- NOTE | 2017-03-03 13:57 | PNF ---
DATE 03/03/2017 FINDINGS Ms. Hughes today states that she has had some blood within her stools. I did look in the restroom and she is passing what appears to be old clotted blood. She states that she has not had any further "bright red blood" as noted prior to her admission. She denies any element of abdominal pain. VITALS: Afebrile. Normotensive. Last recorded vitals include temperature 97.4, pulse 58, respirations 15, blood pressure 133/63, SaO2 97% on room air. HEENT: Normocephalic. Pupils are equal, round and reactive to light and accommodation. CHEST: Clear to auscultation bilaterally. HEART: Regular rate and rhythm. Normal S1 and S2 without gallops, murmurs or clicks. ABDOMEN: Soft, nontender. No evidence for guarding or rebound. LABORATORY/RADIOGRAPH EVALUATION Her hemoglobin has drifted down slightly but overall remains stable at 10.9. BMP obtained and found to be essentially within normal limits. INR was obtained today and found to be 1.68. ASSESSMENT 82-year-old female with left breast mass and history for rectal bleeding - most likely diverticular in etiology. PLAN Tomorrow will plan on proceeding with a colonoscopy for further evaluation of her rectal bleeding. I did discuss with the patient this afternoon what a colonoscopy would entail and its associated risk which included, but was not limited to, bleeding and/or perforation requiring surgery. In regards to her breast mass, patient informs me that earlier today the "other physician" had informed her that they were going to check "with insurance" and if possible would proceed later today with additional radiograph evaluation of this suspicious abnormality noted within her left breast. MAHESH
[2017-03-03 17:50] LABS: HGB - HEMOGLOBIN 10.6 GM/DL (12-16)
--- NOTE | 2017-03-03 18:45 | NUR ---
UPDATE PT GIVEN A BOWEL PREP THIS MORNING, PT CONTINUES TO HAVE BOWEL MOVEMENTS, THEY ARE MOSTLY LIQUID NOW AND DONT HAVE MUCH BLOOD. PT WILL BE NPO AFTER MIDNIGHT FOR A COLONOSCOPY THAT WILL BE DONE TOMORROW MORNING. CONSENT FORM HAS ALREADY BEEN SIGNED. PT IS A&OX3, AND COOPERATIVE WITH TREATMENT, VS HAVE BEEN STABLE TODAY, PTS HGB STABLE.
[2017-03-03] MEDS: ATORVASTATIN 40 MG TABLET PO SCH (23:12)
[2017-03-03 23:34] LABS: HGB - HEMOGLOBIN 10.1 GM/DL (12-16)
[2017-03-04] VITALS (21 sets, daily range): BP systolic 95–181; BP diastolic 50–91; PULSE 59–96; RESP 12–20; TEMP 96.3–98.3; O2SAT 95–100
[2017-03-04] MEDS: NORMAL SALINE 1,000 ML IV SCH (03:00)
--- NOTE | 2017-03-04 04:58 | NUR ---
SHIFT SUMMARY PT ALERT AND ORIENTED X 3. PT CONTINUES TO HAVE BLOODY, LIQUID STOOLS. STOOLS ARE LESS NOW THEN AT THE START OF THE SHIFT. PT UP WITH STAND BY ASSIST. SHE PROVIDES HER ONLY SKIN CARES. GAIT IS STEADY WHEN WALKING. PT THOUGHT SHE WOULD GO HOME TODAY. TEACHING ON COLONOSCOPY REVIEWED. CONSENT IS SIGN AND ON THE FRONT OF THE CHART. HGB IS STABLE AT 10.1.
--- NOTE | 2017-03-04 06:02 | NUR ---
STATUS SURGERY STAFF CALLED TO CHECK ON PT AND WILL PLAN ON TAKING PT AT 0630.
[2017-03-04 06:15] LABS: BASOPHILS % (AUTO) 0.6 % (0-2); EOSINOPHILS # (AUTO) 0.1 T/MM3 (0-0.5); EOSINOPHILS % (AUTO) 1.5 % (0-4); HCT - HEMATOCRIT 30.6 % (36-46); HGB - HEMOGLOBIN 10.1 GM/DL (12-16); IMMATURE GRANULOCYTE # (AUTO) 0.01 T/MM3 (0.00-0.03); IMMATURE GRANULOCYTE % (AUTO) 0.2 % (0.0-0.5); LYMPHOCYTES # (AUTO) 1.9 T/MM3 (1-4.8); LYMPHOCYTES % (AUTO) 39.2 % (23-45); MEAN CORPUSCULAR HGB 28.6 UUG (26-34); MEAN CORPUSCULAR VOLUME 86.7 UM3 (80-100); MEAN PLATELET VOLUME 10.4 UM3 (9.4-12.4); MONOCYTES # (AUTO) 0.4 T/MM3 (0-0.8); MONOCYTES % (AUTO) 9.1 % (0-9.0); NEUTROPHILS #(AUTO)-ABSOLUTE 2.3 T/MM3 (1.8-7.7); NEUTROPHILS % (AUTO) 49.4 % (33-66); RED BLOOD COUNT 3.53 M/MM3 (4.00-5.20); WBC - WHITE BLOOD COUNT 4.7 T/MM3 (4.5-11.0)
[2017-03-04 06:25] LABS: ANION GAP 10 MEQ/L (5-15); BUN/CREATININE RATIO 13 RATIO (6-26); CALCIUM 7.8 MG/DL (8.4-10.2); CHLORIDE 107 MEQ/L (98-107); CO2 - CARBON DIOXIDE 24 MEQ/L (22-30); CREATININE 0.6 MG/DL (0.7-1.2); GLOMERULAR FILTRATION RATE 95; GLUCOSE 94 MG/DL (65-110); POTASSIUM 3.3 MEQ/L (3.6-5); SODIUM 141 MEQ/L (134-144)
--- NOTE | 2017-03-04 07:31 | ANESPREOP ---
Anesthesia Record Date and Time DATE: 03/04/17 TIME: 07:28 Proposed Surgical Procedure Allergies: Coded Allergies: Sulfa (Sulfonamide Antibiotics) (Verified Allergy, Intermediate, HIVES, ) pneumococcal vaccine (Verified Allergy, Intermediate, 03/02/17) redness and swelling Ht/Wt/BMI Height: 5 ' 5.50 " Weight: 69.900 kg BMI: 25.9 kg/m2 Vital Signs Date Time Temp Pulse Resp B/P Pulse Ox O2 Delivery O2 Flow Rate FiO2 03/04/17 06:35 98.2 83 16 169/73 97 Room Air Medications Inpatient Medications Current Medications Medications (Trade) Dose Ordered Sig/Berenice Start Time Stop Time Status Last Admin Dose Admin Sodium Chloride (Normal Saline IV) 1,000 ml @ 75 mls/hr [id number] 03/02/17 17:15 03/04/17 03:00 75 MLS/HR Pantoprazole Sodium (Protonix Iv) 40 mg DAILY 03/03/17 09:00 03/03/17 08:35 40 MG Ondansetron HCl 4 mg 4 mg Q6H PRN 03/02/17 17:15 Sodium Chloride (NS) 500 ml @ 0 mls/hr Q0M 03/02/17 17:05 03/03/17 23:59 DC Atenolol (TENORMIN 25 mg) 12.5 mg DAILY 03/03/17 09:00 03/03/17 08:36 12.5 MG Atorvastatin Calcium (LIPITOR 40 mg) 80 mg HS 03/02/17 22:00 03/03/17 23:12 80 MG Artificial Tears (Refresh Classic Drops) 1 drop BID 03/02/17 21:00 03/03/17 23:11 1 DROP Acetaminophen (Tylenol Extra Strength) 1,000 mg QID PRN 03/02/17 21:45 Acetaminophen (Acetaminophen) 500 Mg Tablet, 1 TAB PO HS, (Reported) Last Taken: on 03/01/17 2200 Aspirin (Aspirin) 325 Mg Tablet, 1 TAB PO DAILY , (Reported) Last Taken: on 03/01/17 0800 Atenolol (Atenolol) 25 Mg Tablet, 0.5 TAB PO DAILY, (Reported) Last Taken: on 03/01/17 2100 Atorvastatin Calcium (Atorvastatin Calcium) 80 Mg Tablet, 0.5 TAB PO HS, (Reported) Last Taken: on 03/01/172099 Carboxymethylcellulose Sodium (Refresh Tears) 15 Ml Drops, 1 DROP BOTH EYES BID, (Reported) Warfarin Sodium (Coumadin) 2.5 Mg Tablet, 1 TAB PO DAILY, (Reported) Last Taken: on 03/01/172099 Discontinued Medications Acetaminophen (Tylenol Extra Strength) 500 Mg Tablet, 1 TAB PO Q6H PRN for PAIN Discontinued Reason: Wrong Medication Currently on Beta Timothy: Yes Beta Timothy Last Taken: ATENOLOL AT 2100 ON 03/03/17 Medical/Surgical History Anesthesia PMH: Reports: *Dyspnea (ON EXERTION), *Hypertension, Anesthesia Reactions (VERY WEAK), CVA/Stroke/TIA (tia), Denies: *Angina, *Diabetes, *[place], Asthma, Blood Transfusion Reac, CHF, COPD, Cancer, Deep Vein Thrombosis, Glaucoma, Headaches, Hepatitis, Hiatal Hernia, Pneumonia, Reflux, Renal Disease , Rheumatic Fever, Seizures, Sleep Apnea, Thyroid Disease, Tuberculosis Smoking Status: Never smoker Has pt. smoked today?: No Use Chewing Tobacco?: No Second Hand Exposure: No Substance Use Type: does not use Substance last used: unknown Alcohol Intake: none Last Drink: unknown Past Surgical History Orthopedic Surgeries: No Abdominal Surgeries: Yes - ankit Genitourinary Surgeries: Yes - cystocopy, loan- bennett-guerline Cardiac Surgeries: Yes - cardiac bypass, cabg in 1992 Endocrine Surgeries: No Reproductive Surgeries: Yes - hysterectomy Neurological Surgeries: No Ear Surgeries: No Nose Surgeries: No Throat Surgeries: No Other Surgeries: Yes - cataract, laser eye surgery Anesthesia Adverse Reactions: FOUND none, FOUND nausea and vomiting Hx of Motion Sickness: No Pertinent Findings Laboratory Tests 03/04/17 05:53 Test 03/03/17 04:40 Prothromb Time International Ratio 1.68 (0.76-1.04) EKG Rhythm: Sinus Rhythm Physical Exam Respiratory: Bilat breath sounds equal, Lungs clear Cardiovascular: FOUND Regular rate, rhythm, FOUND No murmur Airway Assessment Mallampati Score: II TMD: 3 Fingerbreadths Neck Extension: Good Overall Assessment: No Airway Concerns ASA: 3 Plan Anesthesia Plan: TIVA Discussion Discussed risks/options/alternatives of anesthesia and questions answered. Patient consents. Nursing pain assessment noted. Attestation Statement Prior to the delivery of any anesthetic medication, I examined the patient, developed the plan, obtained the patient's consent and discussed the risk and benefits of the procedure with the patient/guardian. GUILLERMO LINTON CRNA Mar 04, 2017 07:31
--- NOTE | 2017-03-04 07:35 | ANESPREOP ---
Anesthesia Record Date and Time DATE: 03/04/17 TIME: 07:34 Pre-Op Diagnosis low hgb Proposed Surgical Procedure colonoscopy Allergies: Coded Allergies: Sulfa (Sulfonamide Antibiotics) (Verified Allergy, Intermediate, HIVES, ) pneumococcal vaccine (Verified Allergy, Intermediate, 03/02/17) redness and swelling Ht/Wt/BMI Height: 5 ' 5.50 " Weight: 69.900 kg BMI: 25.9 kg/m2 Vital Signs Date Time Temp Pulse Resp B/P Pulse Ox O2 Delivery O2 Flow Rate FiO2 03/04/17 06:35 98.2 83 16 169/73 97 Room Air Medications Inpatient Medications Current Medications Medications (Trade) Dose Ordered Sig/Berenice Start Time Stop Time Status Last Admin Dose Admin Sodium Chloride (Normal Saline IV) 1,000 ml @ 75 mls/hr [id number] 03/02/17 17:15 03/04/17 03:00 75 MLS/HR Pantoprazole Sodium (Protonix Iv) 40 mg DAILY 03/03/17 09:00 03/03/17 08:35 40 MG Ondansetron HCl 4 mg 4 mg Q6H PRN 03/02/17 17:15 Sodium Chloride (NS) 500 ml @ 0 mls/hr Q0M 03/02/17 17:05 03/03/17 23:59 DC Atenolol (TENORMIN 25 mg) 12.5 mg DAILY 03/03/17 09:00 03/03/17 08:36 12.5 MG Atorvastatin Calcium (LIPITOR 40 mg) 80 mg HS 03/02/17 22:00 03/03/17 23:12 80 MG Artificial Tears (Refresh Classic Drops) 1 drop BID 03/02/17 21:00 03/03/17 23:11 1 DROP Acetaminophen (Tylenol Extra Strength) 1,000 mg QID PRN 03/02/17 21:45 Acetaminophen (Acetaminophen) 500 Mg Tablet, 1 TAB PO HS, (Reported) Last Taken: on 03/01/17 2200 Aspirin (Aspirin) 325 Mg Tablet, 1 TAB PO DAILY , (Reported) Last Taken: on 03/01/17 0800 Atenolol (Atenolol) 25 Mg Tablet, 0.5 TAB PO DAILY, (Reported) Last Taken: on 03/01/17 2100 Atorvastatin Calcium (Atorvastatin Calcium) 80 Mg Tablet, 0.5 TAB PO HS, (Reported) Last Taken: on 03/01/172099 Carboxymethylcellulose Sodium (Refresh Tears) 15 Ml Drops, 1 DROP BOTH EYES BID, (Reported) Warfarin Sodium (Coumadin) 2.5 Mg Tablet, 1 TAB PO DAILY, (Reported) Last Taken: on 03/01/172099 Discontinued Medications Acetaminophen (Tylenol Extra Strength) 500 Mg Tablet, 1 TAB PO Q6H PRN for PAIN Discontinued Reason: Wrong Medication Currently on Beta Timothy: Yes Beta Timothy Last Taken: ATENOLOL AT 2100 ON 03/03/17 Medical/Surgical History Anesthesia PMH: Reports: *Dyspnea (ON EXERTION), *Hypertension, Anesthesia Reactions (VERY WEAK), CVA/Stroke/TIA (tia), Denies: *Angina, *Diabetes, *[place], Asthma, Blood Transfusion Reac, CHF, COPD, Cancer, Deep Vein Thrombosis, Glaucoma, Headaches, Hepatitis, Hiatal Hernia, Pneumonia, Reflux, Renal Disease , Rheumatic Fever, Seizures, Sleep Apnea, Thyroid Disease, Tuberculosis Smoking Status: Never smoker Has pt. smoked today?: No Use Chewing Tobacco?: No Second Hand Exposure: No Substance Use Type: does not use Substance last used: unknown Alcohol Intake: none Last Drink: unknown Past Surgical History Orthopedic Surgeries: No Abdominal Surgeries: Yes - ankit Genitourinary Surgeries: Yes - cystocopy, loan- bennett-guerline Cardiac Surgeries: Yes - cardiac bypass, cabg in 1992 Endocrine Surgeries: No Reproductive Surgeries: Yes - hysterectomy Neurological Surgeries: No Ear Surgeries: No Nose Surgeries: No Throat Surgeries: No Other Surgeries: Yes - cataract, laser eye surgery Anesthesia Adverse Reactions: FOUND none, FOUND nausea and vomiting Hx of Motion Sickness: No Pertinent Findings Laboratory Tests 03/04/17 05:53 Test 03/03/17 04:40 Prothromb Time International Ratio 1.68 (0.76-1.04) EKG Rhythm: Sinus Rhythm Physical Exam Respiratory: Bilat breath sounds equal, Lungs clear Cardiovascular: FOUND Regular rate, rhythm, FOUND No murmur Airway Assessment Mallampati Score: II TMD: 3 Fingerbreadths Neck Extension: Good Overall Assessment: No Airway Concerns ASA: 3 Plan Anesthesia Plan: TIVA Discussion Discussed risks/options/alternatives of anesthesia and questions answered. Patient consents. Nursing pain assessment noted. Attestation Statement Prior to the delivery of any anesthetic medication, I examined the patient, developed the plan, obtained the patient's consent and discussed the risk and benefits of the procedure with the patient/guardian. GUILLERMO LINTON CRNA Mar 04, 2017 07:35
[2017-03-04] MEDS ORDERED: LIDOCAINE 1% (10mg/ml) 2ml SDV ONE (07:40)
[2017-03-04] MEDS ORDERED: PROPOFOL 500mg 50 ML IV ONE (07:41)
[2017-03-04] MEDS ORDERED: POTASSIUM CHLORIDE 20 MEQ TABLET PO ONE ×2 (08:00→12:15)
--- NOTE | 2017-03-04 08:09 | GSPOSTPN ---
Endoscopy Procedure Procedure Date: Mar 04, 2017 Surgeon: Latonia Anesthesia: TIVA ASA: 3 Procedure: Colonoscopy-forceps polypectomy Diagnosis Postop Colonoscopy Diagnosis Postop Colonoscopy Diagnosis: Diverticulosis Polyps at: FOUND Ascending Colon (proxiaml ascending, distal ascending) Polyps at (cm): 20 cm Complications Complications Estimated Blood Loss See Anesthesia Record. Vital Signs See Anesthesia and PACU record. DIVINE URIAS BUILDING SUPERVISOR Mar 04, 2017 07:56
[2017-03-04] MEDS ORDERED: LR 1,000 ML IV PRN (08:19)
--- NOTE | 2017-03-04 08:27 | ANESPO ---
Post-Op Note Date 03/04/17 Time: 08:25 Status Pt Participated in Evaluation: Pt participated in person Vital Signs Date Time Temp Pulse Resp B/P Pulse Ox O2 Delivery O2 Flow Rate FiO2 03/04/17 08:20 68 14 95/50 95 Room Air 03/04/17 08:12 97.3 Respiratory Function: Airway patent, Regular respirations Cardiovascular Function: Regular pulse Mental Status: Alert/oriented Pain Level Intensity: 0 Hydration: IV infusing Complications during Recovery None apparent Follow-Up Instructions Instructions Per Surgeon PHU SEARS CRNA Mar 04, 2017 08:27
[2017-03-04] MEDS: REFRESH CLASSIC Eye Drops 0.4ml Dropperette BOTH EYES SCH (09:39)
[2017-03-04] MEDS: PANTOPRAZOLE 40mg INJECTION IV SCH (09:39)
[2017-03-04] MEDS: ATENOLOL 25 MG TABLET PO SCH (09:39)
--- NOTE | 2017-03-04 09:50 | OPNOTEF ---
DATE OF SERVICE 03/04/2017 SURGEON Hussain Lincoln MD PREOPERATIVE DIAGNOSIS Personal history of rectal bleeding. POSTOPERATIVE DIAGNOSIS Personal history of rectal bleeding, sigmoid diverticulosis, colonic polyps located at 20 cm, distal ascending, and proximal ascending colon. PROCEDURE Colonoscopy with polypectomies via cold biopsy technique. ANESTHESIA TIVA BRIEF HISTORY/INDICATIONS Mrs. Hughes is an 82-year-old female who recently presented to our hospital as a result of several bouts of hematochezia. The patient's hemoglobin stabilized and her rectal bleeding also began to dissipate. The patient was given a bowel prep and it was recommended that she undergo a colonoscopy for further evaluation of the underlying etiology for her rectal bleeding. For completeness please refer to notes included in the patient's chart. FINDINGS Upon colonoscopy there was some old blood located within the sigmoid colon and rectum. There was a fair amount of diverticula also noted within the sigmoid colon region. There was no active bleeding present. Transverse colon and the ascending colon were without evidence for old blood upon the mucosa. There was no evidence for angiodysplastic lesions nor magdalena malignancies. The patient was found to have three polyps located at 20 cm, proximal ascending colon and distal ascending colon. These polyps ranged on the order of about 5-8 mm in diameter and removed all in their entirety via cold biopsy technique. DESCRIPTION OF PROCEDURE After informed consent was obtained, the patient was brought to the endoscopy suite and placed on the table in left lateral decubitus position. The patient subsequently underwent total intravenous anesthesia by the nurse medical records library professor per my request. A formal time-out was then completed. Next, a digital rectal examination was performed. Normal sphincter tone. No rectal masses were appreciated. An Olympus colonoscope was inserted in the anus and into the rectal vault. One could see some old blood upon the surface of the mucosa in the rectal vault. The colonoscope was then continued to be advanced under direct visualization of the lumen at all times. As stated above, there were numerous diverticula within the sigmoid colon region and one could see a moderate amount of old blood upon the mucosa. There was no evidence for active bleeding. As the scope was then continued to be advanced, the colon became void of old blood. There was no evidence for bleeding within the transverse colon or ascending colon. Scope was advanced until the cecum was ascertained. One could see the triangulation of the teniae coli, ileocecal valve and appendiceal lumen. The scope was then slowly withdrawn. Within the proximal ascending colon, the patient was found to have a polyp on the order of about 5 mm in diameter which was removed in its entirety via cold biopsy technique. The scope was then continued to be withdrawn where, in the distal ascending colon, the patient was found to have a larger sessile polyp that was on the order of about 8 mm in diameter. This polyp was removed via cold biopsy technique as well in its entirety. Scope was then continued to be slowly withdrawn where a third synchronous polyp was identified at 20 cm from the anal verge that was on the order of about 5 mm in diameter which was also removed in its entirety via cold biopsy technique. The entire colon was without evidence for angiodysplastic lesions or magdalena malignancies. The colonoscope was then continued to be withdrawn until it was withdrawn back to the rectal vault. A J-maneuver was then performed. No worrisome perianal pathology was noted. Scope was allowed to straighten and withdrawn through the anal verge. The patient tolerated the procedure without difficulty and was sent back to the preop area in stable condition. It is my intuition that the patient's etiology for her hematochezia was likely secondary to a diverticular bleed which has now subsided. Would recommend that we go ahead and advance the patient's diet and continue to follow her from a clinical standpoint, with regards her GI bleed. I do believe that one could resume her Coumadin within the next few days. MAHESH
[2017-03-04] MEDS ORDERED: POTASSIUM CHLORIDE 10 MEQ, LIDOCAINE 1% 10 MG in NORMAL SALINE 100 ML IV SCH (10:00)
[2017-03-04 11:05] LABS: HGB - HEMOGLOBIN 10.1 GM/DL (12-16)
--- NOTE | 2017-03-04 11:34 | NUR ---
Potassium bolus Potassium bolus stopped d/t pain in IV site. Approximately 50 ml infused. IV site was flushed and aspirated with no signs of infiltration. Site is slightly reddened. Dr. Bates in room at the time, verbal order given to stop bolus and switch to PO meds.
--- NOTE | 2017-03-04 12:00 | NUR ---
Status Patient alert and oriented x3. VSS. On RA. Denies pain, n/v/d. Has had no BM since return from colonoscopy this AM. Patient is pleased that colonoscopy findings are stable. Patient remains concerned about breast biopsy and mammogram to be done tomorrow. Patient has had adequate oral intake and urine output today. Daughter present at bedside. Right AC IV painful but still able to flush. Patient to discharge this afternoon.
--- NOTE | 2017-03-04 13:59 | DSPDOC ---
General Date Date DATE: 03/04/17 TIME: 13:44 Attending Physician Lashae Bates MD Admitting Physician Lashae Bates MD Consulting Physician Tierra Prince MD,Facs,Cws Admitting Diagnosis GI bleed Discharge Diagnosis 1. Hematochezia, likely due to diverticulosis 2. Diverticulosis 3. Colonic polyps x 3, less than 1 cm 4. Acute blood loss anemia 5. Left breast mass 6. Anti-cardiolipin antibodies syndrome Procedures Colonoscopy with polypectomy on 03/[address] Prince-sigmoid diverticulosis was seen with 3 colonic polyps (5-8 mm) at 20 cm and in the distal and proximal descending colon. Polyps were removed via cold biopsy technique. No active bleeding was seen but there was old blood on the mucosa in the sigmoid colon with no blood more proximally. Laboratory Laboratory Tests Test 03/03/17 04:33 03/03/17 04:40 03/03/17 11:05 03/03/17 17:38 Turbidity < 20 (0-20) Sodium Level 138MEQ/L (134-144) Potassium Level 4.0MEQ/L (3.6-5) Chloride Level 106MEQ/L (98-107) Carbon Dioxide Level 24MEQ/L (22-30) Anion Gap 8MEQ/L (5-15) Blood Urea Nitrogen 15.0MG/DL (7-17) Creatinine 0.6MG/DL (0.7-1.2) Glomerular Filtration Rate Calc 95 BUN/Creatinine Ratio 25RATIO (6-26) Glucose Level 87MG/DL (65-110) Calculated Osmolality 266MOSM/KG (261-280) Calcium Level 8.1MG/DL (8.4-10.2) Icterus Index < 2 (0-7) Chemistry Specimen Hemolysis < 15 (0-25) White Blood Count 6.6T/MM3 (4.5-11.0) Red Blood Count 3.70M/MM3 (4.00-5.20) Hemoglobin 10.6GM/DL (12-16) 10.9GM/DL (12-16) 10.6GM/DL (12-16) Hematocrit 32.0% (36-46) Mean Corpuscular Volume 86.5UM3 (80-100) Mean Corpuscular Hemoglobin 28.6UUG (26-34) Mean Corpuscular Hemoglobin Concent 33.1GM/DL (31-37) RDW Standard Deviation 39.3FL (36.9-50.2) Platelet Count 172T/MM3 (130-400) Mean Platelet Volume 10.6UM3 (9.4-12.4) Immature Granulocyte % (Auto) 0.2% (0.0-0.5) Neutrophils (%) (Auto) 47.1% (33-66) Lymphocytes (%) (Auto) 44.3% (23-45) Monocytes (%) (Auto) 6.2% (0-9.0) Eosinophils (%) (Auto) 1.7% (0-4) Basophils (%) (Auto) 0.5% (0-2) Absolute Immature Granulocyte (auto 0.01T/MM3 (0.00-0.03) Absolute Neutrophils (auto) 3.1T/MM3 (1.8-7.7) Absolute Lymphocytes (auto) 2.9T/MM3 (1-4.8) Absolute Monocytes (auto) 0.4T/MM3 (0-0.8) Absolute Eosinophils (auto) 0.1T/MM3 (0-0.5) Absolute Basophils (auto) 0.0T/MM3 (0-0.2) Prothromb Time International Ratio 1.68 (0.76-1.04) Test 03/03/17 23:08 03/04/17 05:53 03/04/17 10:57 Hemoglobin 10.1GM/DL (12-16) 10.1GM/DL (12-16) 10.1GM/DL (12-16) White Blood Count 4.7T/MM3 (4.5-11.0) Red Blood Count 3.53M/MM3 (4.00-5.20) Hematocrit 30.6% (36-46) Mean Corpuscular Volume 86.7UM3 (80-100) Mean Corpuscular Hemoglobin 28.6UUG (26-34) Mean Corpuscular Hemoglobin Concent 33.0GM/DL (31-37) RDW Standard Deviation 39.1FL (36.9-50.2) Platelet Count 161T/MM3 (130-400) Mean Platelet Volume 10.4UM3 (9.4-12.4) Immature Granulocyte % (Auto) 0.2% (0.0-0.5) Neutrophils (%) (Auto) 49.4% (33-66) Lymphocytes (%) (Auto) 39.2% (23-45) Monocytes (%) (Auto) 9.1% (0-9.0) Eosinophils (%) (Auto) 1.5% (0-4) Basophils (%) (Auto) 0.6% (0-2) Absolute Immature Granulocyte (auto 0.01T/MM3 (0.00-0.03) Absolute Neutrophils (auto) 2.3T/MM3 (1.8-7.7) Absolute Lymphocytes (auto) 1.9T/MM3 (1-4.8) Absolute Monocytes (auto) 0.4T/MM3 (0-0.8) Absolute Eosinophils (auto) 0.1T/MM3 (0-0.5) Absolute Basophils (auto) 0.0T/MM3 (0-0.2) Turbidity < 20 (0-20) Sodium Level 141MEQ/L (134-144) Potassium Level 3.3MEQ/L (3.6-5) Chloride Level 107MEQ/L (98-107) Carbon Dioxide Level 24MEQ/L (22-30) Anion Gap 10MEQ/L (5-15) Blood Urea Nitrogen 8.0MG/DL (7-17) Creatinine 0.6MG/DL (0.7-1.2) Glomerular Filtration Rate Calc 95 BUN/Creatinine Ratio 13RATIO (6-26) Glucose Level 94MG/DL (65-110) Calculated Osmolality 269MOSM/KG (261-280) Calcium Level 7.8MG/DL (8.4-10.2) Icterus Index < 2 (0-7) Chemistry Specimen Hemolysis < 15 (0-25) Hemoglobin on admission 03/02 was 12.4 with INR of 1.7 in the office prior to admission. 1 of 2 Hemoccults was positive History of Present Illness Amber Hughes is an 82 y/o lady directly admitted from Dr. Maddox's office. She presented to his office for a routine f/u visit regarding a breast lump that has been present for about 4 wks, and she also mentioned that she had 12-13 bright-red colored stools since [id number]. She has had some lower abdominal discomfort for most of the day. She denies any nausea or vomiting, but hasn't felt like eating anything. She notes weakness, fatigue, and lightheadedness, but denies SOA or chest pain. She denies fever/chills, congestion, dysphagia, urinary problems, or leg swelling. Hgb in the office was 13.3, INR was 1.7, and she was hemodynamically stable. Dr. Maddox noted hemorrhoids, but did not feel convinced that these are the source of the bleeding. She was placed into observation status, and Dr. Prince was consulted for the GI bleed. Hospital Course 03/02/17 Admitted to observation status for GI bleed. Trend serial hemoglobin; type and screen. NPO. Seen by Dr. Prince with plans for colonoscopy in the next day or 2. Start NS at 100 ml/hr and Protonix IV. Hold Coumadin and ASA. INR at [facility] was 1.7. 03/03/17 GI bleed, suspect diverticular in nature. I spoke with Jesse Ballard this am - plan is to cautiously bowel prep and if this goes well, colonoscopy tomorrow. Acute blood loss anemia. Continue monitoring hgb, which has decreased 3 g since arrival. She has been typed and screened. She is symptomatic with lightheadedness, but hemodynamically stable. Orthostatic BP did not show decrease with change in position. Iatrogenic coagulopathy - INR still slightly high at 1.68. Coumadin and ASA are on hold. Left breast mass - for outpatient evaluation, not covered in the hospital. 03/04/17-discharge Tolerated bowel prep well and underwent colonoscopy this morning with demonstration of diverticulosis in the sigmoid with evidence of recent blood loss but no ongoing bleeding. 3 small polyps were removed. Hemoglobin stable overnight and patient reports that she feels fine the today without any nausea or vomiting. Diet resumed and tolerated well, no lightheadedness. Respirations nonlabored and lung smith clear. Abdomen benign with normal bowel sounds present. Potassium slightly low after bowel prep-being replaced orally. Stable for discharge at this time. Scheduled for mammograms/ultrasound and possibly biopsy in radiology tomorrow per Dr. Prince. Patient advised she should continue to hold warfarin and aspirin and asked to follow up with Dr. Maddox in the next couple of days to determine when medication should be resumed. Plans discussed with the patient and her daughter. Results of colonoscopy discussed with Dr. Prince and Dr. Maddox updated on plans. >30 minutes spent on patient care and discharge care coordination today on the date of discharge. 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 (10) Dyslipidemia Status: Chronic (11) Diverticulosis Status: Chronic Assessment & Plan: Probable acute diverticular bleed (12) Colonic polyp Status: Chronic DVT Prophylaxis: SCD'S Code Status Full Code Home Meds Reported Medications Acetaminophen (Acetaminophen) 500 Mg Tablet, 1 TAB PO HS, #60 TAB 1 Refill 03/02/17 Carboxymethylcellulose Sodium (Refresh Tears) 15 Ml Drops, 1 DROP BOTH EYES BID 08/31/15 Atorvastatin Calcium (Atorvastatin Calcium) 80 Mg Tablet, 0.5 TAB PO HS 08/31/15 Atenolol (Atenolol) 25 Mg Tablet, 0.5 TAB PO DAILY 03/01/14 Warfarin Sodium (Coumadin) 2.5 Mg Tablet, 1 TAB PO DAILY 05/03/09 Aspirin (Aspirin) 325 Mg Tablet, 1 TAB PO DAILY 05/03/09 Discontinued Scripts Acetaminophen (Tylenol Extra Strength) 500 Mg Tablet, 1 TAB PO Q6H Y for PAIN for 10 Days, #40 TAB Prov:MISTY LEWIS MD 11/30/16 Face to Face Encounter I met with patient on the day of dismissal and discussed follow up appointments , medications, and safety plan. Discharge Disposition Home Copies To 1: JAVIER MADDOX MD; TIERRA PRINCE MD, FACS, CWS Documentation Requirements Anemia Anemia Etiology: Blood Loss Anemia Acuity: Acute LASHAE BATES MD Mar 04, 2017 13:48
--- NOTE | 2017-03-04 14:53 | NUR ---
CM CM VISITS WITH PT AND FAMILY. PT/FAMILY DENY DC NEEDS. PT/FAMILY AWARE TO CONTACT CM SHOULD NEEDS ARISE.
--- NOTE | 2017-03-04 15:10 | NUR ---
Discharge Patient discharged to home at this time, accompanied by daughter. Belongings gathered and sent home with patient. Patient informed about appointment tomorrow for mammogram and breast biopsy. Discharge instructions discussed with patient and daughter who voiced understanding. Instructions sent home with patient.
[2017-03-05] MEDS ORDERED: POTASSIUM CHLORIDE 10 MEQ TABLET PO SCH (08:00)
== END 2017-03-04 15:10 | disposition home or self-care (01) | DRG 378 ==
LOC: MED 16:27 → OBSVTOIN 21:42
PROVIDERS: ADMIT Internal Medicine; ATTEND Internal Medicine
PROC: 0DBN8ZX Excision of Sigmoid Colon, Via Natural or Artificial Opening Endoscopic, Diagnostic (ICD-10-PCS; 2017-03-04)
PROC: 0DBK8ZX Excision of Ascending Colon, Via Natural or Artificial Opening Endoscopic, Diagnostic (ICD-10-PCS; principal; 2017-03-04 07:50)
DX: K57.31 Diverticulosis of large intestine without perforation or abscess with bleeding (principal); D62 Acute posthemorrhagic anemia; D68.61 Antiphospholipid syndrome; N63 Unspecified lump in breast; D12.2 Benign neoplasm of ascending colon; D12.5 Benign neoplasm of sigmoid colon; I25.10 Atherosclerotic heart disease of native coronary artery without angina pectoris; E78.5 Hyperlipidemia, unspecified; I73.9 Peripheral vascular disease, unspecified; N30.11 Interstitial cystitis (chronic) with hematuria; Z79.01 Long term (current) use of anticoagulants; Z79.82 Long term (current) use of aspirin; Z95.1 Presence of aortocoronary bypass graft
CPT/HCPCS: 36415; 36416; 80048; 80053; 82272; 85018; 85025; 85610; 86850; 86900; 86901; 88305

== ENCOUNTER → 2017-03-05 | Outpatient (CLI) | payer MEDICARE, OTHER ==
[~2017-03-05] MED LIST changes: -ACET-2723 PO; +ACET-62 PO; +HYDR-4246 PO; +IBUP-1546 PO; +LIDOCAINE 1% 30ml (STERI-PAK) ONE
== END ==
LOC: IMA 09:05
PROVIDERS: ATTEND Surgery
DX: C50.512 Malignant neoplasm of lower-outer quadrant of left female breast (principal); Z17.0 Estrogen receptor positive status [ER+]; N64.59 Other signs and symptoms in breast; D48.62 Neoplasm of uncertain behavior of left breast; N63 Unspecified lump in breast
CPT/HCPCS: 19083; 76642; 88305; 88341; 88342; 88361; G0204; G0206; G0279

== ENCOUNTER 2017-03-16 07:56 | Outpatient (CLI) | payer MEDICARE, OTHER ==
[~2017-03-16] VITALS: Ht 162.6 cm; Wt 68.5 kg
[2017-03-16] VITALS (26 sets, daily range): BP systolic 148–190; BP diastolic 58–85; PULSE 65–88; RESP 10–20; TEMP 97.1–97.8; O2SAT 93–100; Ht 162.6 cm; Wt 68.5 kg
[~2017-03-16 07:56] MED LIST changes: -HYDR-4246 PO; -IBUP-1546 PO; +LIDOCAINE 1% (10mg/ml) 2ml SDV INJ ONE; -LIDOCAINE 1% 30ml (STERI-PAK) ONE; +LR 1,000 ML IV SCH
[2017-03-16 08:31] LABS: INR 0.96 (0.76-1.04); PROTHROMBIN TIME 10.5 SEC (9.31-12.49)
--- NOTE | 2017-03-16 10:38 | DI ---
Indication: The purpose of this study is to localize the sentinel lymph node(s) for purposes of surgical planning. Procedure:NM LYMPHOSCINTIGRAPHY LYMPHOSCINTIGRAPHY: Technique: After discussing the details of the procedure, including the risks, the patient wished to proceed. Informed consent was obtained. A preprocedural pause was performed to confirm the correct patient and procedure. Approximately 0. 25 mCi of Tc-99m sulfur colloid was injected intradermally in four periareolar locations in the left breast. A total of approximately 1 mCi of Tc-99m sulfur colloid was injected. Anterior planar images were subsequently obtained. Findings: The 4 intradermal injection sites are visualized as intense focal uptake in the left breast region. Impression: 1. Technically successful periareolar injections for the purpose of lymphoscintigraphy. Shailesh Pollock RPA/BELLA performed this under my personal supervision. .
--- NOTE | 2017-03-16 12:50 | ANESPREOP ---
Anesthesia Record Date and Time DATE: 03/16/17 TIME: 12:48 Pre-Op Diagnosis left breast cancer Proposed Surgical Procedure needle loc. left breast lumpectomy vs. lft. mastectomy NPO since: 0700 Allergies: Coded Allergies: Sulfa (Sulfonamide Antibiotics) (Verified Allergy, Intermediate, HIVES, ) pneumococcal vaccine (Verified Allergy, Intermediate, 03/13/17) redness and swelling Ht/Wt/BMI Height: 5 ' 4.00 " Weight: 68.300 kg BMI: 25.9 kg/m2 Vital Signs Date Time Temp Pulse Resp B/P Pulse Ox O2 Delivery O2 Flow Rate FiO2 03/16/17 08:15 97.8 70 14 148/68 98 Room Air Medications Inpatient Medications Current Medications Medications (Trade) Dose Ordered Sig/Berenice Start Time Stop Time Status Last Admin Dose Admin Lactated Ringer's (Lactated Ringers) 1,000 ml @ 30 mls/hr Q24H 03/16/17 07:00 03/16/17 10:32 30 MLS/HR Acetaminophen (Acetaminophen) 500 Mg Tablet, 1 TAB PO HS, (Reported) Last Taken: on 03/14/17 Aspirin (Aspirin) 325 Mg Tablet, 1 TAB PO DAILY, ( Reported) Last Taken: on 03/02/17 Atenolol (Atenolol) 25 Mg Tablet, 0.5 TAB PO DAILY, (Reported) Last Taken: on 03/15/17 Atorvastatin Calcium (Atorvastatin Calcium) 80 Mg Tablet, 0.5 TAB PO HS, (Reported) Last Taken: on 03/14/17 Carboxymethylcellulose Sodium (Refresh Tears) 15 Ml Drops, 1 DROP BOTH EYES BID, (Reported) Last Taken: on 03/16/17 0715 Warfarin Sodium (Coumadin) 2.5 Mg Tablet, 1 TAB PO DAILY, (Reported) Last Taken: on 03/02/17 Currently on Beta Timothy: Yes Beta Timothy Last Taken: ATENOLOL 03-15-17 Medical/Surgical History Anesthesia PMH: Reports: *ASHD, *Hypertension, *AL (bypass x 2), CVA/Stroke/TIA , Cancer (LEFT BREAST, SKIN), Cardiac Arrythmia, Denies: *Angina, *Diabetes, Asthma, Blood Transfusion Reac, CHF, COPD, Deep Vein Thrombosis, Glaucoma, Headaches, Hepatitis, Hiatal Hernia, Malignant Hyperthermia, Pneumonia, Reflux, Renal Disease, Rheumatic Fever, Seizures, Sleep Apnea, Thyroid Disease, Tuberculosis Smoking Status: Never smoker Has pt. smoked today?: No Use Chewing Tobacco?: No Second Hand Exposure: No Substance Use Type: does not use Substance last used: unknown Alcohol Intake: none Last Drink: unknown HX of Last Menstrual Period: hyst. Past Surgical History Orthopedic Surgeries: Yes - partial hip Abdominal Surgeries: Yes - ankit Genitourinary Surgeries: Yes - cystocopy, loan- bennett-guerline Cardiac Surgeries: Yes - cardiac bypass, cabg in 1992 Endocrine Surgeries: No Reproductive Surgeries: Yes - hysterectomy Neurological Surgeries: No Ear Surgeries: No Nose Surgeries: No Throat Surgeries: No Other Surgeries: Yes - cataract, laser eye surgery Anesthesia Adverse Reactions: FOUND none, FOUND nausea and vomiting Pertinent Findings Test 03/16/17 08:20 Prothromb Time International Ratio 0.96 (0.76-1.04) EKG Rhythm: Sinus Rhythm Physical Exam Respiratory: Lungs clear Cardiovascular: FOUND Regular rate, rhythm, FOUND No murmur Airway Assessment Mallampati Score: II TMD: 3 Fingerbreadths Neck Extension: Good Teeth: Chipped Teeth/Crowns Overall Assessment: No Airway Concerns ASA: 3 Plan Anesthesia Plan: LMA Discussion Discussed risks/options/alternatives of anesthesia and questions answered. Patient consents. Nursing pain assessment noted. Present: Family Member Attestation Statement Prior to the delivery of any anesthetic medication, I examined the patient, developed the plan, obtained the patient's consent and discussed the risk and benefits of the procedure with the patient/guardian. NATY BUCIO CRNA March 16, 2017 12:50
[2017-03-16] MEDS ORDERED: PROPOFOL 500mg 0 ML IV ONE (12:59)
[2017-03-16] MEDS ORDERED: PROPOFOL 200mg 20 ML IV ONE (12:59)
[2017-03-16] MEDS ORDERED: FENTANYL 100mcg/2ml INJECTION ONE (13:03)
[2017-03-16] MEDS ORDERED: KETAMINE 500mg/10ml INJECTION ONE (13:14)
[2017-03-16] MEDS ORDERED: PHENYLEPHRINE 10mg/ml INJECTION ONE (13:17)
[2017-03-16] MEDS ORDERED: HYDROMORPHONE 2mg/ml INJECTION ONE (13:37)
[2017-03-16] MEDS ORDERED: ONDANSETRON 4mg/2ml INJECTION IV PRN ×2 (14:00→14:30)
[2017-03-16] MEDS ORDERED: FENTANYL 100mcg/2ml INJECTION IV PRN (14:00)
[2017-03-16] MEDS ORDERED: IBUPROFEN 400 MG TABLET PO PRN (14:30)
[2017-03-16] MEDS ORDERED: METOCLOPRAMIDE 10mg/2ml INJECTION IV PRN (14:30)
[2017-03-16] MEDS ORDERED: MORPHINE SULFATE 4 MG SYRINGE IV PRN (14:30)
[2017-03-16] MEDS ORDERED: HYDROCODONE/APAP 5 mg/325 mg TABLET PO PRN (14:30)
--- NOTE | 2017-03-16 14:30 | GSPOSTPN ---
Procedure Procedure Date: March 16, 2017 Surgeon: Latonia Assisting Surgeon: Jesse Ballard Anesthesia: GETA ASA: 3 Procedure Left breast mastectomy with sentinel lymph node biopsy GS Diagnosis Postop Diagnosis Left breast cancer, with [place] nodes negative on Frozen Section. Complications Complications Estimated Blood Loss See Anesthesia Record. Vital Signs See Anesthesia and PACU record. DIVINE BALLARD OVERHAULER HELPER March 16, 2017 14:30
--- NOTE | 2017-03-16 14:46 | NUR ---
ADMIT PT ADMITTED TO ROOM 109 AT THIS TIME VIA CART FROM PACU. PT TRANSFERRED SELF FROM CART TO BED. HOB ELEVATED. BED ALARM ON. SIDE RAILS UP X2. VITAL SIGNS STABLE ON ROOM AIR. PT'S DAUGHTER DENISA PRESENT UPON RETURN TO ROOM. WILL CONTINUE TO MONITOR.
[2017-03-16] MEDS: LR 1,000 ML IV SCH (14:59)
--- NOTE | 2017-03-16 15:46 | ANESPO ---
Post-Op Note Date 03/16/17 Time: 15:22 Status Pt Participated in Evaluation: Pt participated in person Vital Signs Date Time Temp Pulse Resp B/P Pulse Ox O2 Delivery O2 Flow Rate FiO2 03/16/17 15:20 74 16 185/73 98 Room Air 03/16/17 14:50 97.8 03/16/17 14:20 2.00 Respiratory Function: Airway patent, Regular respirations Cardiovascular Function: Regular pulse Mental Status: Alert/oriented Pain Level Intensity: 0 Hydration: IV infusing Complications during Recovery None apparent Follow-Up Instructions Instructions Per Surgeon PHU SEARS CRNA March 16, 2017 15:46
--- NOTE | 2017-03-16 17:27 | NUR ---
STATUS PT ALERT AND ORIENTED X3. BLOOD PRESSURE STABILIZED IN THE 160'S SYSTOLIC AFTER ORDERS TO ADMINISTER WILEY ATENOLOL RECEIVED AND CARRIED OUT. PT NAUSEATED UPON RETURN TO ROOM. THIS RN ADMINISTERED 4MG OF ZOFRAN IV AND PT REPORTED RELIEF FROM NAUSEA. PT'S DAUGHTER DENISA AT BEDSIDE SINCE RETURN FROM SURGERY. PT HAS DENIED PAIN OR NEED FOR PAIN MEDICATION. PT ON ROOM AIR AND O2 SATURATIONS IN THE UPPER 90'S. PT HAD ONE EPISODE OF INCONTINENCE DURING A PERIOD IN WHICH SHE DRY HEAVED. PT ASSISTED INTO A NEW GOWN AND LINENS CHANGED. PT HAS NOT HAD ANY FURTHER DRY HEAVING EPISODES SINCE ZOFRAN ADMINISTRATION. DURING THE LINEN CHANGE, PT TRANSFERRED TO EDGE OF BED AND STOOD WITH STANDBY ASSISTANCE. PT TOLERATED THIS WELL AND REPORTED MINIMAL DIZZINESS. PT REPOSITIONED SELF BACK IN BED. HOB ELEVATED CURRENTLY. BED ALARM ON. SCD'S ON TO BILATERAL CALVES. CALL LIGHT IN REACH. WILL CONTINUE TO MONITOR.
[2017-03-16] MEDS ORDERED: LISINOPRIL 5 MG TABLET PO ONE (17:30)
--- NOTE | 2017-03-16 18:29 | OPNOTEF ---
DATE OF SERVICE 03/16/2017 SURGEON Hussain Lincoln MD MARINE CARGO INSPECTOR Jesse Ballard APRN PREOPERATIVE DIAGNOSIS Invasive ductal carcinoma involving left breast. POSTOPERATIVE DIAGNOSIS Invasive ductal carcinoma involving left breast. PROCEDURE Preoperative injection of isosulfan blue, left mastectomy, left sentinel left sentinel lymph node biopsy. ANESTHESIA General endotracheal. EBL/FLUIDS Please see chart. BRIEF HISTORY/INDICATIONS Mrs. Hughes is an 81-year-old female who has recently had the misfortune of developing left breast cancer. I recently saw the patient at [facility] as a result of an admission for rectal bleeding. During this hospitalization she did share with me that she had noted a mass within her left breast. Upon examination the patient was found have a very hard, discrete mass involving the left breast at about the 3 o'clock position adjacent to the areolar complex. The patient was evaluated in regards to her bleeding and upon her discharge further evaluation was undertaken in regards to this newly discovered left breast mass including mammography, sonography and ultrasound-guided biopsy. The patient was found to have a mass involving the left breast with three associated satellite lesions somewhat in a retroareolar location. The patient did undergo an ultrasound-guided biopsy of the larger mass which did return as that of invasive ductal carcinoma with associated ductal carcinoma in situ. The patient was ER/NE-positive and HER2-negative. As a result of the fact that the tumor was retroareolar in location and the fact that she was found to have separate satellite nodules surrounding the main tumor, it was my recommendation that she would be best served by undergoing a mastectomy. Patient presents today to undergo this procedure. For completeness please refer to notes included in the patient's chart. NARRATIVE OF PROCEDURE After informed consent was obtained the patient was brought to the operative suite and placed on the table in supine fashion. The circumareolar region was then prepped with alcohol. 0.25 ml of isosulfan blue was injected in a subdermal fashion at the 12 o'clock, 3 o'clock, 6 o'clock and 9 o'clock position along the areolar border. The left breast and left axilla were then prepped and draped in sterile fashion. Formal time-out was completed. Next, a standard elliptical incision was then made encompassing the left breast. Skin flaps were then created. A skin flap was created up to the clavicle in a cephalad fashion, to the lateral border of the sternum medially, to just below the inframammary crease caudally, and out laterally to the border of the latissimus dorsi muscle. Attention was focused to the left axilla. A Navigator Neoprobe was placed within the left axilla through the mastectomy incision. A point of increased radioactivity was identified. A hemostat was then placed in this location and gently spread. A bluish lymph node was then identified. This lymph node was excised and had an ex vivo count of around 350-360. Background activity was 5-10. Navigator Neoprobe was then placed back within the axilla and the patient was found to have an additional lymph node fairly deep within the axilla which was somewhat atypical. A hemostat was then gently spread within the left axilla and an additional lymph node that was also found to be somewhat bluish was identified. This lymph node was excised and had an ex vivo count of around 250. A finger was then placed within axilla and no additional palpable abnormalities were noted. Navigator Neoprobe was then placed in the axilla and no other areas of increased radioactivity were identified. These two lymph nodes that were excised were then submitted as the sentinel lymph nodes. Attention was focused towards completion of the mastectomy. The breast itself was then excised off of the underlying pectoralis major muscle in a mediolateral fashion. Marking suture was placed along the medial aspect of the specimen for pathologic orientation. The surgical wound was then irrigated and the surgical field was carefully inspected multiple times and meticulous hemostasis was obtained throughout. During the process of inspecting the surgical field for hemostasis one could see an additional lymph node that had somewhat of a bluish tint to it within the left axilla. I elected to go ahead and excise this and submit it with the original specimen. The nurse had actually already passed off the Navigator Neoprobe at this point in time and it was no longer sterile. Attention was directed towards closure. Two 19-Ugandan drains were then placed within the wound and allowed to exit inferiorly into the lateral aspect of the elliptical incision. Both drains were then placed upon the anterior chest wall and within the left axilla. Attention was directed towards closure. Skin itself was closed in a running fashion with 3-0 Vicryl. Dermabond was placed overlying the skin surfaces. Drains were secured to the anterior chest wall with 2-0 Prolene. During the process of closure Pathology did return a call to the operative suite stating that the sentinel nodes were fortunately benign in nature. Patient has subsequently awakened from her anesthetic and currently is in the recovery room in stable condition. Additionally, it should be noted that Jesse Ballard APRN, was present throughout the entire case and played a pivotal role in providing assistance and exposure during the course of the procedure. MAHESH
[2017-03-16] MEDS: REFRESH CLASSIC Eye Drops 0.4ml Dropperette BOTH EYES SCH (20:08)
[2017-03-16] MEDS ORDERED: ATENOLOL 25 MG TABLET PO SCH (22:00)
[2017-03-17 00:14] VITALS: BP 152/67; PULSE 69; RESP 18; TEMP 96.9; O2SAT 99
[2017-03-17] MEDS: LR 1,000 ML IV SCH ×2 (01:18→10:21)
[2017-03-17 03:58] VITALS: BP 121/61; PULSE 61; RESP 18; TEMP 98.1; O2SAT 97
--- NOTE | 2017-03-17 05:06 | NUR ---
SHIFT SUMMARY PATIENT IS ALERT AND ORIENTED X3 THIS SHIFT. VITAL SIGNS ARE STABLE ON ROOM AIR. PATIENT HAS NOT REPORTED NAUSEA OR VOMITING SINCE SHIFT REPORT AT 1900. PATIENT HAS REPORTED NO PAIN THIS SHIFT. PATIENT AMBULATES WELL WITH STAND BY ASSIST. PATIENT HAS BEEN UP AND TO THE BATHROOM AND WALKED IN ROOM THIS SHIFT. PATIENT FINISHED ORANGES FROM [employer] AND ATE HALF OF A TURKEY SANDWICH. CONTINUED TO DENY ANY N/V. PATIENT HAS SLEPT WELL THROUGH THE NIGHT AND HAS BEEN PLEASANT WITH CARES. WILL CONTINUE TO MONITOR.
[2017-03-17 05:27] LABS: INR 1.09 (0.76-1.04); PROTHROMBIN TIME 11.9 SEC (9.31-12.49)
[2017-03-17 07:38] VITALS: PULSE 61; RESP 18
[2017-03-17 07:39] VITALS: BP 105/49; PULSE 75; RESP 18; TEMP 98.1
[2017-03-17] MEDS: REFRESH CLASSIC Eye Drops 0.4ml Dropperette BOTH EYES SCH (08:47)
[2017-03-17] MEDS ORDERED: ATENOLOL 25 MG TABLET PO SCH (09:00)
[2017-03-17] MEDS ORDERED: ENOXAPARIN 80 MG/0.8 ML INJECTION SQ ONE (10:00)
--- NOTE | 2017-03-17 10:08 | NUR ---
CM CM IN TO VISIT WITH PT. SHE IS ALERT AND ORIENTED. SHE PLANS TO DC HOME. CM VISITS WITH HER ABOUT HHS. CM POINTS OUT THAT HHS COULD HELP MONITOR DRAINS AND INCISION, GIVE LOVENOX INJECTIONS AND DRAW LAB. PT REPORTS THAT HER NEIGHBOR CAN GIVE HER RIDES TO GET LOVENOX INJECTIONS. SHE REPORTS THAT HER SON WILL BE STAYING WITH HER. AT THIS TIME SHE DENIES NEED FOR HHS. SHE IS GIVEN CM CONTACT INFORMATION AND ENCOURAGED TO CONTACT CM IF DC NEEDS [facility]ISE. SHE VERBALIZED UNDERSTANDING. ALEXANDRA SCORE 4. Addendum: 03/17/17 at 1010 by CHRISTINE SMITH RN Amended: Links added.
[2017-03-17] MEDS ORDERED: WARFARIN 2.5 MG TABLET PO SCH (12:00)
[2017-03-17] MEDS ORDERED: HYDR-4246 PO (12:03)
[2017-03-17] MEDS ORDERED: IBUP-1546 PO (12:03)
[2017-03-17 12:30] VITALS: BP 150/71; PULSE 73; RESP 16; O2SAT 95
--- NOTE | 2017-03-17 12:35 | PNSURG ---
Subjective DATE: 03/17/17 TIME: 12:29 Interval History Doing well post left mastectomy. Pain rated 0-1. RICARDO drains serosanguineous mostly thin sanguineous. Discussion with patient and son regarding activity and expectations. Drains should become for clear yellow. If they become more bloody and increase in volume they should call.She will start coumadin today and continue Lovenox through the infusion center already set up by Dr. Maddox. Objective Vital Signs Date Time Temp Pulse Resp B/P Pulse Ox O2 Delivery O2 Flow Rate FiO2 03/17/17 07:39 98.1 75 18 105/49 Room Air 03/17/17 03:58 97 03/16/17 14:20 2.00 Height (Feet): 5 Height (Inches): 4.00 Weight (Kilograms): 68.500 BMI 25.9 General Appearance: Alert, Orientated x 3 Incision: FOUND: Clean, Dry, Intact, open to air (Dermabond in tact), other ( early ecchymosis mostly of the lower skin flap), NOT FOUND: erythema Drains Present: FOUND Calin Garza (2) Drain Output: FOUND: serosanguinous (both drains) Laboratory Trend INR Test 03/16/17 08:20 03/17/17 04:17 Prothromb Time International Ratio 0.96 (0.76-1.04) 1.09 (0.76-1.04) Procedure Procedure Date: March 16, 2017 Surgeon: Latonia Procedure Left breast mastectomy with sentinel lymph node biopsy GS Assessment & Plan Problems: (1) Breast cancer, left Qualifiers: Breast location: overlapping sites of breast Patient sex: female Qualified Codes: C50.812 - Malignant neoplasm of overlapping sites of left female breast (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 Follow up March 20 for drain management and March [address] Lincoln Code Status Full Code Hospital Course Summary Disclaimer The visit summary below is not to be considered part of the above Progress Note. DIVINE URIAS APRN March 17, 2017 12:32
--- NOTE | 2017-03-17 14:24 | NUR ---
DISCHARGE PATIENT IS ALERT AND ORIENTED X3. PATIENT VITALS ARE STABLE AND PATIENT IS ON ROOM AIR. PATIENT DENIES CP, NAUSEA, AND SOA. DISCHARGE INSTRUCTIONS INCLUDE: SIGNS AND SYMPTOMS OF INFECTION, NEW MEDICATIONS, CONTINUED MEDICATIONS, FOLLOW UP APPOINTMENTS, INCISION CARE, ACTIVITY, DIET, DI FOR A RICARDO DRAIN, AND DI FOR MASTECTOMY. PATIENT WAS ABLE TO RETURN DEMONSTRATE RICARDO DRAIN CARE/MANAGEMENT WITH THIS NURSE. SCRIPT FOR NORCO WAS GIVEN TO SON. PERSONAL BELONGINGS RETURNED. IV DISCONTINUED. PATIENT LEFT VIA WHEELCHAIR FROM FRONT ENTRANCE WITH NURSING STAFF. PATIENT WAS TRANSPORTED HOME FOR SELF CARE BY SON.
== END 2017-03-17 14:24 | disposition home or self-care (01) ==
LOC: IMA 07:56 → SRG 07:58 → IMA 03-17 14:24
PROVIDERS: ATTEND Surgery
DX: C50.512 Malignant neoplasm of lower-outer quadrant of left female breast (principal); Z17.0 Estrogen receptor positive status [ER+]; Z79.01 Long term (current) use of anticoagulants; I25.10 Atherosclerotic heart disease of native coronary artery without angina pectoris; E78.5 Hyperlipidemia, unspecified; Z79.890 Hormone replacement therapy; Z86.73 Personal history of transient ischemic attack (TIA), and cerebral infarction without residual deficits; Z79.82 Long term (current) use of aspirin; Z79.899 Other long term (current) drug therapy
CPT/HCPCS: 19303; 36415; 38525; 38900; 78195; 85610; 88305; 88307; 88331; 94664; A9270; A9541; J1170; J1650; J2370; J2405; J2704; J2765; J3010; J7120

== ENCOUNTER 2017-03-19 11:35 | Observation (INO) | payer MEDICARE, OTHER ==
[~2017-03-19] VITALS: Ht 162.6 cm; Wt 66.4 kg
[~2017-03-19 11:35] MED LIST changes: +HYDR-4246 PO; +IBUP-1546 PO; -LIDOCAINE 1% (10mg/ml) 2ml SDV INJ ONE; -LR 1,000 ML IV SCH
--- OUTSIDE RECORDS SUMMARY | 2017-03-19 11:40 | XMS REPORT | Continuity of Care Document ---
Author Author [facility] Organization [facility] Address Unknown Phone Unavailable Support Name Relationship Address Phone JAVIER MADDOX MD Caregiver [address] [place] [address] Unavailable LASHAE BATES MD Caregiver [address] [place] [address] Unavailable LASHAE BATES MD Caregiver [address] [place] [address] Unavailable RADHADENISA Next Of Kin [address] [place] [address] Insurance Providers Guarantor Amber Hughes Address [address] [place] [address] Email DENIED 17 Payer Medicare Policy Number [id number] Subscriber's Name Amber Hughes Relationship 18 Self Effective Date 99 Payer [place] Policy Number [id number] Subscriber's Name Amber Hughes Relationship 18 Self Group Number [id number] Advance Directives Directive Response Recorded Date/Time Ordered Resuscitation Status Full Code 03/02/17 5:13pm Resuscitation Documents on File No 03/02/17 5:04pm DPOA for Healthcare Only Y pt does not have paperwork with her 03/02/17 5: 04pm Living Will Yes 03/02/17 5:04pm Problems Active Problems Medical Problem Onset Date Status Anticardiolipin antibody positive Unknown Chronic Anticoagulant long-term use Unknown Chronic Breast mass, left Unknown Acute CAD (coronary artery disease) Unknown Chronic 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 Colonic polyp Unknown Chronic Diverticulosis Unknown Chronic Dyslipidemia Unknown Chronic GI bleed Unknown Acute Heart palpitations Unknown Acute Heart palpitations Unknown Acute Hypercoagulable state Unknown Chronic Microscopic hematuria Unknown Chronic PAD (peripheral artery disease) Unknown Chronic PVD (peripheral vascular disease) Unknown Chronic TIA (transient ischemic attack) Unknown Chronic Vertigo Unknown Acute Vitamin D deficiency Unknown Chronic Past Problems Medical Problem Onset Date Retinal detachment Unknown Medications Current Home Medications Medication Dose Units Route Directions Days Qty Instructions Start Date Acetaminophen 500 Mg Tablet 1 Tab Oral Bedtime 60 Tablet 03/02/17 Aspirin 325 Mg Tablet 1 Tab Oral Daily 05/03/09 Atenolol 25 Mg Tablet 0.5 Tab Oral Daily 03/01/14 Atorvastatin Calcium 80 Mg Tablet 0.5 Tab Oral Bedtime 08/31/15 Carboxymethylcellulose Sodium (Refresh Tears) 15 Ml [...] Problem Response Recorded Date/Time Onset Date Status Reason for Hospitalization rectal bleeding 03/04/2017 2:23pm Not Applicable Not Applicable Hx Substance Use No 11/30/2016 8:37am Not Applicable Not Applicable Hx Alcohol Use No 11/30/2016 8:37am Not Applicable Not Applicable Tobacco Usage none 03/01/2014 6:38pm Not Applicable Not Applicable Query Response Start Date Stop Date Smoking Status Never smoker Hospital Discharge Instructions Instructions: Care Instructions: Reason for Hospitalization: rectal bleeding I was in the hospital because (patient own words): i had blood in my stools Discharge Diet: regular Discharge Activity: as tolerates Follow Up Appointments: breast testing tomorrow Dr Maddox in the next week Follow-up with Dr. Maddox on March 06 at 2:20pm Pending Lab / Results: No Pending Lab Patient Instructions: Hold aspirin and warfarin for several days-discuss resumption with Dr. Maddox. Mammograms and other breast testing scheduled by Dr. Prince ([phone]) for tomorrow. Wound/Incision Care: not applicable Durable Medical Equipment: Not applicable Pain Management/Treatment: tylenol as needed Expected Signs/Symptoms: mild weakness, possible lightheadedness Notify Physician If: pass out, further rectal bleeding During Business Hours:: Please call the physician's office at After Business Hours:: Please call [phone] and have the angledozer operator page the physician. Condition at time of discharge: Good Plan of Care Discharge Date 03/04/17 3:10pm Disposition 01 DISCHARGED HOME, SELF-CARE Instructions/Education Provided Rectal Bleeding (DC) Prescriptions See Medication Section Additional Instructions/Education hold aspirin and warfarin until you see Dr. Maddox on Thursday or Thursday. Care Plan and Goals See Discharge Instructions Section Functional Status Query Response Date Recorded Mobility Status Ambulatory March 04, 2017 2:23pm Assistive Devices None March 04, 2017 2:23pm Activity Limitations Weakness March 04, 2017 2:23pm Feeding Ability Independent March 04, 2017 2:23pm Toileting Ability Independent March 04, 2017 2:23pm Grooming Ability Independent March 04, 2017 2:23pm Dressing Ability Independent March 04, 2017 2:23pm Driving Ability Independent March 04, 2017 2:23pm Housework Ability Independent March 04, 2017 2:23pm Meal Preparation Ability Independent March 04, 2017 2:23pm Stair Climbing Ability Independent March 04, 2017 2:23pm Ability to complete ADL's impeded by No change March 04, 2017 2:23pm Cognitive/Perceptual Impairments Impaired vision March 04, 2017 2:23pm Visual Assistive Devices Glasses With patient March 02, 2017 4:57pm Allergies, Adverse Reactions, Alerts Allergen Type Severity Reaction Status Last Updated Sulfa (Sulfonamide Antibiotics) Allergy Intermediate HIVES Active 03/02/17 Pneumococcal conjugate vaccine Allergy Intermediate Active 03/02/17 Immunizations Query Response on File Recorded Date/Time Hx Influenza Vaccination Yes 03/02/17 5:11pm Hx Pneumococcal Vaccination N allergy reaction 03/02/17 5:11pm Hx Influenza Vaccination Yes 03/02/17 5:11pm Influenza Vaccine Hx "NOT YET" - "I AM SUPPOSED TO GET IT THIS NEXT THURSDAY" 08/31/15 1:12pm Tdap Vaccine Hx UNKNOWN - SKIN INTACT 11/30/16 8:23am Vital Signs Acute Vital Signs Vital Response Date/Time Temperature (Fahrenheit) 96.7 deg F (96.8 - 99.1) 03/04/2017 11:33am Temperature (Calculated Celsius) 35.80268 degrees C (36.0 - 37.3) 03/04/2017 11:33am Temperature Source Oral 03/04/2017 11:33am Pulse Rate (adult) 59 bpm (60 - 100) 03/04/2017 11:33am Respiratory Rate 20 breaths/min (10 - 20) 03/04/2017 11:33am O2 Sat by Pulse Oximetry 99 % (90 - 100) 03/04/2017 11:33am Oxygen Delivery Method Room Air 03/04/2017 11:33am Oxygen Delivery Method Room Air 03/04/2017 11:33am Blood Pressure 130/91 mm Hg 03/04/2017 11:33am Blood Pressure Source Automatic Cuff 03/04/2017 11:33am Blood Pressure 130/91 mm Hg 03/04/2017 11:33am Blood Pressure Source Automatic Cuff 03/04/2017 11:33am Height (Feet) 5 feet 03/03/2017 10:48am Height (Inches) 5.50 inches 03/03/2017 10:48am Weight (Kilograms) 69.800 kg 03/04/2017 8:00am Body Mass Index (BMI) 25.9 03/02/2017 5:01pm Results Laboratory Results Test Name Result Units Flags Reference Collection Date/Time Result Date/ Time Comments White Blood Count 4.7 T/MM3 4.5-11.0 03/04/2017 5:53am 03/04/2017 6: 15am Red Blood Count 3.53 M/MM3 L 4.00-5.20 03/04/2017 5:53am 03/04/2017 6: 15am Hemoglobin 10.1 GM/DL L 12-16 03/04/2017 10:57am 03/04/2017 11:05am Hematocrit 30.6 % L 36-46 03/04/2017 5:53am 03/04/2017 6:15am Mean Corpuscular Volume 86.7 UM3 80-100 03/04/2017 5:53am 03/04/2017 6: 15am Mean Corpuscular Hemoglobin 28.6 UUG 26-34 03/04/2017 5:53am 2016 6:15am Mean Corpuscular Hemoglobin Concent 33.0 GM/DL 31-37 03/04/2017 5:53am 03/04/2017 6:15am RDW Standard Deviation 39.1 FL 36.9-50.2 03/04/2017 5:53am 03/04/2017 6 :15am Platelet Count 161 T/MM3 130-400 03/04/2017 5:53am 03/04/2017 6:15am Mean Platelet Volume 10.4 UM3 9.4-12.4 03/04/2017 5:53am 03/04/2017 6: 15am Neutrophils (%) (Auto) 49.4 % 33-66 03/04/2017 5:53am 03/04/2017 6: 15am Lymphocytes (%) (Auto) 39.2 % 23-45 03/04/2017 5:53am 03/04/2017 6: 15am Monocytes (%) (Auto) 9.1 % H 0-9.0 03/04/2017 5:53am 03/04/2017 6:15am Eosinophils (%) (Auto) 1.5 % 0-4 03/04/2017 5:5303/04/2017 6:15am Basophils (%) (Auto) 0.6 % 0-2 03/04/2017 5:53am 03/04/2017 6:15am Immature Granulocyte % (Auto) 0.2 % 0.0-0.5 03/04/2017 5:53am 2016 6:15am Absolute Neutrophils (auto) 2.3 T/MM3 1.8-7.7 03/04/2017 5:53am 2016 6:15am Absolute Lymphocytes (auto) 1.9 T/MM3 1-4.8 03/04/2017 5:53am 2016 6:15am Absolute Monocytes (auto) 0.4 T/MM3 0-0.8 03/04/2017 5:53am 03/04/2017 6:15am Absolute Eosinophils (auto) 0.1 T/MM3 0-0.5 03/04/2017 5:53am 2016 6:15am Absolute Basophils (auto) 0.0 T/MM3 0-0.2 03/04/2017 5:53am 03/04/2017 6:15am Absolute Immature Granulocyte (auto 0.01 T/MM3 0.00-0.03 03/04/2017 5: 53am 03/04/2017 6:15am Prothromb Time International Ratio 1.68 H 0.76-1.04 03/03/2017 4:40am 03/03/2017 5:27am THERAPUTIC RANGE=2.00-3.00 FOR ANTI-THROMBOSIS THERAPUTIC RANGE=2.50-3.50 FOR IMPLANTED VALVE Icterus Index < 2 0-7 03/04/2017 5:53am 03/04/2017 6:25am Chemistry Specimen Hemolysis < 15 0-25 03/04/2017 5:53am 03/04/2017 6 :25am 0-25: Specimen Exhibited No Hemolysis. Turbidity < 20 0-20 03/04/2017 5:53am 03/04/2017 6:25am Sodium Level 141 MEQ/L 134-144 03/04/2017 5:53am 03/04/2017 6:25am Potassium Level 3.3 MEQ/L L 3.6-5 03/04/2017 5:53am 03/04/2017 6:25am Chloride Level 107 MEQ/L 98-107 03/04/2017 5:53am 03/04/2017 6:25am Carbon Dioxide Level 24 MEQ/L 22-30 03/04/2017 5:53am 03/04/2017 6: 25am Anion Gap 10 MEQ/L 5-15 03/04/2017 5:53am 03/04/2017 6:25am Blood Urea Nitrogen 8.0 MG/DL D 7-17 03/04/2017 5:53am 03/04/2017 6:47am Creatinine 0.6 MG/DL L 0.7-1.2 03/04/2017 5:53am 03/04/2017 6:25am BUN/Creatinine Ratio 13 RATIO 6-26 03/04/2017 5:53am 03/04/2017 6:25am Glomerular Filtration Rate Calc 95 03/04/2017 5:53am 03/04/2017 6: 25am Glucose Level 94 MG/DL 65-110 03/04/2017 5:53am 03/04/2017 6:25am Calculated Osmolality 269 MOSM/KG 261-280 03/04/2017 5:53am 03/04/2017 6:25am Calcium Level 7.8 MG/DL L 8.4-10.2 03/04/2017 5:53am 03/04/2017 6:25am Total Bilirubin 1.10 MG/DL 0.20-1.30 03/02/2017 6:18pm 03/02/2017 6: 52pm Alkaline Phosphatase 98 U/L 38-126 03/02/2017 6:18pm 03/02/2017 6:52pm Total Protein 6.3 G/DL 6.3-8.2 03/02/2017 6:18pm 03/02/2017 6:52pm Albumin 3.7 G/DL 3.5-5.0 03/02/2017 6:18pm 03/02/2017 6:52pm Globulin 2.6 G/DL 2.4-3.6 03/02/2017 6:18pm 03/02/2017 6:52pm Albumin/Globulin Ratio 1.4 RATIO 1.1-2.2 03/02/2017 6:18pm 03/02/2017 6 :52pm Aspartate Amino Transf (AST/SGOT) 29 U/L 14-36 03/02/2017 6:18pm 2016 6:52pm Alanine Aminotransferase (ALT/SGPT) 35 U/L 9-52 03/02/2017 6:18pm 03/02 6:52pm Stool Occult Blood POSITIVE A 03/03/2017 12:21am 03/03/2017 12:27am Name: AMBER HUGHES Unit #: [id number] : 1935 Sex: F DISCHARGE SUMMARY Admit Date: 03/02/17 Report #: [id number] [facility] General Date Date DATE: 03/04/17 TIME: 13:44 Attending Physician Lashae Bates MD Admitting Physician Lashae Bates MD Consulting Physician Tierra Prince MD,Facs,Cws Admitting Diagnosis GI bleed Discharge Diagnosis 1. Hematochezia, likely due to diverticulosis 2. Diverticulosis 3. Colonic polyps x 3, less than 1 cm 4. Acute blood loss anemia 5. Left breast mass 6. Anti-cardiolipin antibodies syndrome Procedures Colonoscopy with polypectomy on 03/[address] Prince-sigmoid diverticulosis was seen with 3 colonic polyps (5-8 mm) at 20 cm and in the distal and proximal descending colon. Polyps were removed via cold biopsy technique. No active bleeding was seen but there was old blood on the mucosa in the sigmoid colon with no blood more proximally. Laboratory Laboratory Tests Test 03/03/17 04:33 03/03/17 04:40 03/03/17 11:05 03/03/17 17:38 Turbidity < 20 (0-20) Sodium Level 138MEQ/L (134-144) Potassium Level 4.0MEQ/L (3.6-5) Chloride Level 106MEQ/L (98-107) Carbon Dioxide Level 24MEQ/L (22-30) Anion Gap 8MEQ/L (5-15) Blood Urea Nitrogen 15.0MG/DL (7-17) Creatinine 0.6MG/DL (0.7-1.2) Glomerular Filtration Rate Calc 95 BUN/Creatinine Ratio 25RATIO (6-26) Glucose Level 87MG/DL (65-110) Calculated Osmolality 266MOSM/KG (261-280) Calcium Level 8.1MG/DL (8.4-10.2) Icterus Index < 2 (0-7) Chemistry Specimen Hemolysis < 15 (0-25) White Blood Count 6.6T/MM3 (4.5-11.0) Red Blood Count 3.70M/MM3 (4.00-5.20) Hemoglobin 10.6GM/DL (12-16) 10.9GM/DL (12-16) 10.6GM/DL (12-16) Hematocrit 32.0% (36-46) Mean Corpuscular Volume 86.5UM3 (80-100) Mean Corpuscular Hemoglobin 28.6UUG (26-34) Mean Corpuscular Hemoglobin Concent 33.1GM/DL (31-37) RDW Standard Deviation 39.3FL (36.9-50.2) Platelet Count 172T/MM3 (130-400) Mean Platelet Volume 10.6UM3 (9.4-12.4) Immature Granulocyte % (Auto) 0.2% (0.0-0.5) Neutrophils (%) (Auto) 47.1% (33-66) Lymphocytes (%) (Auto) 44.3% (23-45) Monocytes (%) (Auto) 6.2% (0-9.0) Eosinophils (%) (Auto) 1.7% (0-4) Basophils (%) (Auto) 0.5% (0-2) Absolute Immature Granulocyte (auto 0.01T/MM3 (0.00-0.03) Absolute Neutrophils (auto) 3.1T/MM3 (1.8-7.7) Absolute Lymphocytes (auto) 2.9T/MM3 (1-4.8) Absolute Monocytes (auto) 0.4T/MM3 (0-0.8) Absolute Eosinophils (auto) 0.1T/MM3 (0-0.5) Absolute Basophils (auto) 0.0T/MM3 (0-0.2) Prothromb Time International Ratio 1.68 (0.76-1.04) Test 03/03/17 23:08 03/04/17 05:53 03/04/17 10:57 Hemoglobin 10.1GM/DL (12-16) 10.1GM/DL (12-16) 10.1GM/DL (12-16) White Blood Count 4.7T/MM3 (4.5-11.0) Red Blood Count 3.53M/MM3 (4.00-5.20) Hematocrit 30.6% (36-46) Mean Corpuscular Volume 86.7UM3 (80-100) Mean Corpuscular Hemoglobin 28.6UUG (26-34) Mean Corpuscular Hemoglobin Concent 33.0GM/DL (31-37) RDW Standard Deviation 39.1FL (36.9-50.2) Platelet Count 161T/MM3 (130-400) Mean Platelet Volume 10.4UM3 (9.4-12.4) Immature Granulocyte % (Auto) 0.2% (0.0-0.5) Neutrophils (%) (Auto) 49.4% (33-66) Lymphocytes (%) (Auto) 39.2% (23-45) Monocytes (%) (Auto) 9.1% (0-9.0) Eosinophils (%) (Auto) 1.5% (0-4) Basophils (%) (Auto) 0.6% (0-2) Absolute Immature Granulocyte (auto 0.01T/MM3 (0.00-0.03) Absolute Neutrophils (auto) 2.3T/MM3 (1.8-7.7) Absolute Lymphocytes (auto) 1.9T/MM3 (1-4.8) Absolute Monocytes (auto) 0.4T/MM3 (0-0.8) Absolute Eosinophils (auto) 0.1T/MM3 (0-0.5) Absolute Basophils (auto) 0.0T/MM3 (0-0.2) Turbidity < 20 (0-20) Sodium Level 141MEQ/L (134-144) Potassium Level 3.3MEQ/L (3.6-5) Chloride Level 107MEQ/L (98-107) Carbon Dioxide Level 24MEQ/L (22-30) Anion Gap 10MEQ/L (5-15) Blood Urea Nitrogen 8.0MG/DL (7-17) Creatinine 0.6MG/DL (0.7-1.2) Glomerular Filtration Rate Calc 95 BUN/Creatinine Ratio 13RATIO (6-26) Glucose Level 94MG/DL (65-110) Calculated Osmolality 269MOSM/KG (261-280) Calcium Level 7.8MG/DL (8.4-10.2) Icterus Index < 2 (0-7) Chemistry Specimen Hemolysis < 15 (0-25) Hemoglobin on admission 03/02 was 12.4 with INR of 1.7 in the office prior to admission. 1 of 2 Hemoccults was positive History of Present Illness Amber uHghes is an 82 y/o lady directly admitted from Dr. Maddox's office. She presented to his office for a routine f/u visit regarding a breast lump that has been present for about 4 wks, and she also mentioned that she had 12-13 bright-red colored stools since 299. She has had some lower abdominal discomfort for most of the day. She denies any nausea or vomiting, but hasn't felt like eating anything. She notes weakness, fatigue, and lightheadedness, but denies SOA or chest pain. She denies fever/chills, congestion, dysphagia, urinary problems, or leg swelling. Hgb in the office was 13.3, INR was 1.7, and she was hemodynamically stable. Dr. Maddox noted hemorrhoids, but did not feel convinced that these are the source of the bleeding. She was placed into observation status, and Dr. Prince was consulted for the GI bleed. Hospital Course 03/02/17 Admitted to observation status for GI bleed. Trend serial hemoglobin; type and screen. NPO. Seen by Dr. Prince with plans for colonoscopy in the next day or 2. Start NS at 100 ml/hr and Protonix IV. Hold Coumadin and ASA. INR at [facility] was 1.7. 03/03/17 GI bleed, suspect diverticular in nature. I spoke with Jesse Ballard this am - plan is to cautiously bowel prep and if this goes well, colonoscopy tomorrow. Acute blood loss anemia. Continue monitoring hgb, which has decreased 3 g since arrival. She has been typed and screened. She is symptomatic with lightheadedness, but hemodynamically stable. Orthostatic BP did not show decrease with change in position. Iatrogenic coagulopathy - INR still slightly high at 1.68. Coumadin and ASA are on hold. Left breast mass - for outpatient evaluation, not covered in the hospital. 03/04/17-discharge Tolerated bowel prep well and underwent colonoscopy this morning with demonstration of diverticulosis in the sigmoid with evidence of recent blood loss but no ongoing bleeding. 3 small polyps were removed. Hemoglobin stable overnight and patient reports that she feels fine the today without any nausea or vomiting. Diet resumed and tolerated well, no lightheadedness. Respirations nonlabored and lung smith clear. Abdomen benign with normal bowel sounds present. Potassium slightly low after bowel prep-being replaced orally. Stable for discharge at this time. Scheduled for mammograms/ultrasound and possibly biopsy in radiology tomorrow per Dr. Prince. Patient advised she should continue to hold warfarin and aspirin and asked to follow up with Dr. Maddox in the next couple of days to determine when medication should be resumed. Plans discussed with the patient and her daughter. Results of colonoscopy discussed with Dr. Prince and Dr. Maddox updated on plans. >30 minutes spent on patient care and discharge care coordination today on the date of discharge. 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 (10) Dyslipidemia Status: Chronic (11) Diverticulosis Status: Chronic Assessment & Plan: Probable acute diverticular bleed (12) Colonic polyp Status: Chronic DVT Prophylaxis: SCD'S Code Status Full Code Home Meds Reported Medications Acetaminophen (Acetaminophen) 500 Mg Tablet, 1 TAB PO HS, #60 TAB 1 Refill 03/02/17 Carboxymethylcellulose Sodium (Refresh Tears) 15 Ml Drops, 1 DROP BOTH EYES BID 08/31/15 Atorvastatin Calcium (Atorvastatin Calcium) 80 Mg Tablet, 0.5 TAB PO HS 08/31/15 Atenolol (Atenolol) 25 Mg Tablet, 0.5 TAB PO DAILY 03/01/14 Warfarin Sodium (Coumadin) 2.5 Mg Tablet, 1 TAB PO DAILY 05/03/09 Aspirin (Aspirin) 325 Mg Tablet, 1 TAB PO DAILY 05/03/09 Discontinued Scripts Acetaminophen (Tylenol Extra Strength) 500 Mg Tablet, 1 TAB PO Q6H Y for PAIN for 10 Days, #40 TAB Prov:MISTY LEWIS MD 11/30/16 Face to Face Encounter I met with patient on the day of dismissal and discussed follow up appointments , medications, and safety plan. Discharge Disposition Home Copies To 1: JAVIER MADDOX MD; TIERRA PRINCE MD, FACS, CWS Documentation Requirements Anemia Anemia Etiology: Blood Loss Anemia Acuity: Acute LASHAE BATES MD Mar 04, 2017 13:48 Procedures Procedure Status Date Provider(s) Colonoscopy Completed 03/04/17 TIERRA PRINCE MD, FACS, CWS Encounters Encounter Location Arrival/Admit Date Discharge/Depart Date Attending Provider Discharged Inpatient [facility] 03/02/17 9:42pm 03/04/17 3:10pm LASHAE BATES MD Registered Recurring [facility] 02/06/17 10:01am FREDERICK BLANCHARD MD
--- OUTSIDE RECORDS SUMMARY | 2017-03-19 11:42 | XMS REPORT | Continuity of Care Document ---
Author Author [facility] Organization [facility] Address Unknown Phone Unavailable Support Name Relationship Address Phone JAVIER MADDOX MD Caregiver [address] [place] [address] [place] [address] Unavailable TIERRA PRINCE FACS, MD Caregiver [address] [place] [address] [place] [address] Unavailable DENISA GARCIA Next Of Kin [address] [place], [place] [id number] Insurance Providers Guarantor Amber Hughes Address [address] [address] Email DENIED 17 Payer Medicare Policy Number [id number] Subscriber's Name Amber Hughes Relationship 18 Self Effective Date 99 Payer [place] Policy Number [id number] Subscriber's Name Amber Hughes Relationship 18 Self Group Number [id number] Advance Directives Directive Response Recorded Date/Time Ordered Resuscitation Status Full Code 03/13/17 4:25pm Resuscitation Documents on File Yes 03/16/17 10:39am DPOA for Healthcare Only Yes 03/16/17 10:39am Living Will Yes 03/16/17 10:39am Problems Active Problems Medical Problem Onset Date Status Anticardiolipin antibody positive Unknown Chronic Anticoagulant long-term use Unknown Chronic Breast cancer, left Unknown Breast mass, left Unknown Acute CAD (coronary artery disease) Unknown Chronic 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 Colonic polyp Unknown Chronic Diverticulosis Unknown Chronic Dyslipidemia Unknown Chronic GI bleed Unknown Acute Heart palpitations Unknown Acute Heart palpitations Unknown Acute Hypercoagulable state Unknown Chronic [facility] current use of anticoagulant Unknown Chronic Microscopic hematuria Unknown Chronic PAD [...] Drop Both Eyes Twice A Day 08/31/15 Hydrocodone/Acetaminophen (Ledgewood 5-325 Tablet) 5-325 Tablet 1 Tab Oral Every 5 Hours as needed for Pain 10 Tablet 03/17/17 Ibuprofen 400 Mg Tablet 400 Mg Oral Q6h/0300,0900,1500,2100 as needed for Pain 10 Days 40 Tablet 03/17/17 Warfarin Sodium (Coumadin) 2.5 Mg Tablet 1 [...] Date/Time Onset Date Status Reason for Hospitalization mastectomy 03/17/2017 12:49pm Not Applicable Not Applicable Chewing Tobacco Status No 03/16/2017 9:37am Not Applicable Not Applicable Hx Substance Use No 03/16/2017 9:37am Not Applicable Not Applicable Hx Alcohol Use No 03/16/2017 9:37am Not Applicable Not Applicable Has the pt used tobacco in the last 12 months No 03/16/2017 9:37am Not Applicable Not Applicable Tobacco Usage none 03/01/2014 6:38pm Not Applicable Not Applicable Query Response Start Date Stop Date Smoking Status Never smoker Hospital Discharge Instructions Instructions: Care Instructions: I was in the hospital because (patient own words): LEFT BREAST MASTECTOMY Discharge Diet: regular Discharge Activity: Do not drive, operate machinery for 24 hours after surgery or while taking pain medication. May shower today. May use left arm to comb hair, reach into the cupboards, etc. May go up and down stairs. May drive when comfortable, probably after the drains are removed. Follow Up Appointments: Follow up with Norma France RN/ Dr. Prince on March 20 at 10:00 am. for drain management. BRING drain record with you. Follow up with Dr. Prince March 27 at 10:45 am. Daily Lovenox injections at [facility] infusion center under the direction of Dr. Maddox. Time per Infusion center, as before. Pending Lab / Results: Will review at f/u apt Expected Signs/Symptoms: Tenderness and bruising of the left chest. This will gradually subside, especially after the drains are removed. Monitor the color and contour (flatness vs swelling) of the chest wall for significant changes. Monitor the color of the drains, it should gradually become more clear yellow in color. If it bedomes more red and increase in amount along with more red, please call. We may need to change the Lovenox or coumadin. Notify Physician If: 1. Call your surgeon if you are having problems relating to your surgery at [phone]. 2. Problems such as: Temp above 101.5 degrees You develop redness, excessive swelling of the incision, increasing pain or excessive foul smelling drainage. 3. If the office is closed, call [facility] at [phone] and have your Surgeon paged. During Business Hours:: Call your surgeon at at [phone]. After Business Hours:: If the office is closed, call [facility] at [phone] and have your Surgeon paged. Pain Management/Treatment: Tylenol or Ibuprofen. A few Ledgewood ordered if Tylenon is not enough. Do not take Tylenol and Ledgewood together, there is tylenol in the Ledgewood. Pain Scale Utilized to Educate Patient: 0-10 Pain Scale Wound/Incision Care: Leave incision open to air. Do not rub or pick off the glue. May shower today. Condition at time of discharge: Good Plan of Care Discharge Date 03/17/17 2:24pm Instructions/Education Provided [facility] Drain Care (DC) Mastectomy (DC) Prescriptions See Medication Section Functional Status Query Response Date Recorded Mobility Status Ambulatory w/assist March 16, 2017 2:52pm Assistive Devices None March 16, 2017 2:52pm Activity Limitations Pain March 16, 2017 2:52pm Feeding Ability Independent March 16, 2017 2:52pm Toileting Ability Independent March 16, 2017 2:52pm Grooming Ability Independent March 16, 2017 2:52pm Dressing Ability Independent March 16, 2017 2:52pm Driving Ability Independent March 16, 2017 2:52pm Housework Ability Independent March 16, 2017 2:52pm Meal Preparation Ability Independent March 16, 2017 2:52pm Stair Climbing Ability Independent March 16, 2017 2:52pm Ability to complete ADL's impeded by No change March 16, 2017 2:52pm Cognitive/Perceptual Impairments Impaired vision March 16, 2017 2:52pm Visual Assistive Devices Glasses March 16, 2017 2:52pm Preferred Method of Learning Reading Listening March 16, 2017 2:52pm Allergies, Adverse Reactions, Alerts Allergen Type Severity Reaction Status Last Updated Sulfa (Sulfonamide Antibiotics) Allergy Intermediate HIVES Active 03/13/17 Pneumococcal conjugate vaccine Allergy Intermediate Active 03/13/17 Immunizations Query Response on File Recorded Date/Time Hx Influenza Vaccination Y fall 201503/16/17 9:37am Hx Pneumococcal Vaccination N allergy reaction 03/16/17 9:37am Hx Influenza Vaccination Y fall 201503/16/17 9:37am Influenza Vaccine Hx JUL 2016 03/16/17 2:53pm Tdap Vaccine Hx UNKNOWN - SKIN INTACT 11/30/16 8:23am Vital Signs Acute Vital Signs Vital Response Date/Time Temperature (Fahrenheit) 98.1 deg F (96.8 - 99.1) 03/17/2017 7:39am Temperature (Calculated Celsius) 36.66193 degrees C (36.0 - 37.3) 03/17/2017 7:39am Temperature Source Oral 03/17/2017 7:39am Pulse Rate (adult) 73 bpm (60 - 100) 03/17/2017 12:30pm Respiratory Rate 16 breaths/min (10 - 20) 03/17/2017 12:30pm O2 Sat by Pulse Oximetry 95 % (90 - 100) 03/17/2017 12:30pm Oxygen Delivery Method Room Air 03/17/2017 12:30pm Oxygen Delivery Method Room Air 03/16/2017 2:40pm Oxygen Flow Rate 2.00 L/min 03/16/2017 2:20pm Blood Pressure 150/71 mm Hg 03/17/2017 12:30pm Blood Pressure Source Automatic Cuff 03/17/2017 12:30pm Height (Feet) 5 feet 03/17/2017 12:34pm Height (Inches) 4.00 inches 03/17/2017 12:34pm Weight (Kilograms) 68.500 kg 03/17/2017 7:47am Body Mass Index (BMI) 25.9 03/16/2017 8:14am Results Laboratory Results Test Name Result Units [...] Basophils (%) (Auto) 0.6 % 0-2 03/04/2017 5:5303/04/2017 6:15am Immature Granulocyte % (Auto) 0.2 % 0.0-0.5 03/04/2017 5:532016 6:15am Absolute Neutrophils (auto) 2.3 T/MM3 1.8-7.7 03/04/2017 5:532016 6:15am Absolute Lymphocytes (auto) 1.9 T/MM3 1-4.8 03/04/2017 5:532016 6:15am Absolute Monocytes (auto) 0.4 T/MM3 0-0.8 03/04/2017 5:5303/04/2017 6:15am Absolute Eosinophils (auto) 0.1 T/MM3 0-0.5 03/04/2017 5:532016 6:15am Absolute Basophils (auto) 0.0 T/MM3 0-0.2 03/04/2017 5:5303/04/2017 6:15am Absolute Immature Granulocyte (auto 0.01 T/MM3 0.00-0.03 03/04/2017 5: 5303/04/2017 6:15am Icterus Index < 2 0-7 03/04/2017 5:5303/04/2017 6:25am Chemistry Specimen Hemolysis < 15 0-25 03/04/2017 5:5303/04/2017 6 :25am 0-25: Specimen Exhibited No Hemolysis. Turbidity < 20 0-20 03/04/2017 5:5303/04/2017 6:25am Sodium Level 141 MEQ/L 134-144 03/04/2017 5:5303/04/2017 6:25am Potassium Level 3.3 MEQ/L L 3.6-5 03/04/2017 5:5303/04/2017 6:25am Chloride Level 107 MEQ/L 98-107 03/04/2017 5:5303/04/2017 6:25am Carbon Dioxide Level 24 MEQ/L 22-30 [...] Blood POSITIVE A 03/03/2017 12:21am 03/03/2017 12:27am Prothromb Time International Ratio 1.09 H 0.76-1.04 03/17/2017 4:17am 03/17/2017 5:27am THERAPUTIC RANGE=2.00-3.00 FOR ANTI-THROMBOSIS THERAPUTIC RANGE=2.50-3.50 FOR IMPLANTED VALVE Name: AMBER HUGHES Unit #: [id number] : 1935 Sex: F Admit Date: Loc / Svc: SRG Discharge Date: DIAGNOSTIC IMAGING REPORT Report #: [id number] [facility] TEJAL Doan Indication: The purpose of this study is to localize the sentinel lymph node(s) for purposes of surgical planning. Procedure:NM LYMPHOSCINTIGRAPHY LYMPHOSCINTIGRAPHY: Technique: After discussing the details of the procedure, including the risks, the patient wished to proceed. Informed consent was obtained. A preprocedural pause was performed to confirm the correct patient and procedure. Approximately 0. 25 mCi of Tc-99m sulfur colloid was injected intradermally in four periareolar locations in the left breast. A total of approximately 1 mCi of Tc-99m sulfur colloid was injected. Anterior planar images were subsequently obtained. Findings: The 4 intradermal injection sites are visualized as intense focal uptake in the left breast region. Impression: 1. Technically successful periareolar injections for the purpose of lymphoscintigraphy. Shailesh Pollock RPA/BELLA performed this under my personal supervision. . Procedures Procedure Status Date Provider(s) Colonoscopy and biopsy Completed 03/02/17 TIERRA PRINCE MD, FACS, CWS EXCISION OF ASCENDING COLON, ENDO, DIAGN Completed 03/04/17 TIERRA PRINCE MD, FACS, CWS EXCISION OF SIGMOID COLON, ENDO, DIAGN Completed 03/04/17 TIERRA PRINCE MD, FACS, CWS Mastectomy with sentinel lymph node biopsy Completed 03/16/17 TIERRA PRINCE MD, SILVERIO WATKINS Encounters Encounter Location Arrival/Admit Date Discharge/Depart Date Attending Provider Departed [facility] 03/16/17 7:56am 03/17/17 2:24pm TIERRA PRINCE FACS, MD Registered [facility] 03/15/17 10:15am JAVIER MADDOX MD Registered [facility] 03/05/17 9:05am TIERRA PRINCE FACS, MD Discharged Inpatient [facility] 03/02/17 9:42pm 03/04/17 3:10pm DAVID DEAN MD Registered [facility] 02/06/17 10:01am FREDERICK BLANCHARD MD
--- OUTSIDE RECORDS SUMMARY | 2017-03-19 11:43 | XMS REPORT | Continuity of Care Document ---
Author Author [facility] Organization [facility] Address Unknown Phone Unavailable Allergies Medications [...] Status Pt. Type Provider Facility Loc./Unit Complaint [id number] 11/04/2013 14:10:00 2012 19:20:00 DIS Outpatient Kenia VASQUEZ, Jerome Richey [facility] KYLE
--- NOTE | 2017-03-19 11:54 | NUR ---
PROVIDER DR LEONARD IN TO SEE PATIENT.
[2017-03-19] MEDS ORDERED: NORMAL SALINE 1,000 ML IV ONE (11:59)
--- NOTE | 2017-03-19 12:00 | NUR ---
RICARDO DRAINS DRAIN 1 HAD 75 ML IN IT, DRAIN 2 HAD 25 ML IN IT. BOTH DRAINED AT THIS TIME.
--- NOTE | 2017-03-19 12:06 | ERPDOC ---
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 Patient had left breast mastectomy on Thursday, 3 days ago. She called Dr. Lincoln's office today to let them know that she had a lot of drainage from her RICARDO drains. He asked that she come to the ED to be evaluated so he can be notified but she passed out trying to get out the door the house. EMS was called. When they arrived she was nonresponsive see the wall. They lay her down on the gurney, started an IV and the patient has done much better. Systolic blood pressure was 80 when EMS arrived. Allergies: Coded Allergies: Sulfa (Sulfonamide Antibiotics) (Verified Allergy, Intermediate, HIVES, 03/19/17) pneumococcal vaccine (Verified Allergy, Intermediate, 03/19/17) redness and swelling Past History Patient Surgical History Echocardiogram on 04/30/15 showed an EF of 55-65%, diastolic function was preserved. She had mild MR, TR and PI. Mild to moderate AI. 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 Colonoscopy - uncertain date Cystoscopy in 2008 Bilateral cataracts, 2009 Cardiac bypass in 1999. MMK in 1995 CABG in 1992 NABIL/BSO in 1988 Cholecystectomy. Laser eye surgery Past Medical History Metabolic: hypertension ENMT: other Cardiac: CAD Hx Echocardiogram: Yes Date Last Echocardiogram: Aug 17, 2012 Ejection Fraction (%): 50 GI: gallbladder disease, ulcers Neurological: TIA Musculoskeletal: osteoarthritis Surgical History General: gallbladder, other Cardiac: cardiac bypass, cardiac cath Reproductive/: hysterectomy Joint: hip Family History Family PMH: FOUND: hypertension Vaccines Hx Influenza Vaccination: Yes (fall 2015) Hx Pneumococcal Vaccination: No (allergy reaction) Social History Does patient use chewing tobac: No Second Hand Exposure: No Substance Use Type: does not use Substance last used: unknown Alcohol Intake: none Last Drink: unknown Current Occupational Status: retired 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 She states she feels like she is just trying to keep her head on her body because it feels like it is spinning. Vitals and Pain First Documented Vital Signs Date Time Temp Pulse Resp B/P Pulse Ox O2 Delivery O2 Flow Rate FiO2 03/19/17 11:35 97.7 70 16 134/59 100 Room Air Weight: Kilograms: Height (feet): 5 Height (inches): 4.00 Triage Pain Scale: Normal Exams: Head: Normocephalic w/o trauma Eyes: Pupils are PERRLA w/ EOMI, No scleral icterus, irritation, or foreign bodies noted Neck: Full range of motion, without adenopathy, JVD, bruits or thyromegaly Chest/Resp: Clear all smith, with good airflow, and symmetry bilaterally CV: Regular rate and rhythm, without murmur or gallop, Pulses 2+ all extremities, capillary refill, <2 seconds all ext., no pedal edema noted Abdomen: Bowel sounds positive, soft, non-tender, non-distended, no hepatosplenomegaly, masses or bruits noted Neurologic: Patient is alert, and oriented, cranial nerves, motor/sensory/ cerebellar, exams w/o gross deficits, to observation Psychiatric: Patient exhibits, appropriate attention, emotion and affect Integumentary (brief) Comments Incision on left breast is examined, no obvious drainage through skin, no seromas noted. RICARDO drains are actively draining Differential Diagnoses Differential Diagnoses Considering: Acute ID/Ischemia, CHF Exacerbation, CVA - Thrombotic, CVA - Hemorrhagic, Drug Abuse, Hypoglycemia, Hypothermia, Medication Effect, Overdose , Pulmonary Embolus, UTI Progress Results/Orders Orders Procedure Category Date Status Time Iv Lock (Ed Only) EDM 03/19/17 Transmitted 11:59 Oxygen Administration EDM 03/19/17 Transmitted 11:59 Cbc W/Auto LAB 03/19/17 Complete Diff-Reflex Manual 11:59 Cmp - Comprehensive LAB 03/19/17 Complete Metabolic 11:59 Troponin I W LAB 03/19/17 Complete Hemolysis Index 11:59 Ua, Dip Wreflex LAB 03/19/17 Complete Microsc & Husbandry Person 11:59 EKG EKG 03/19/17 Logged 11:59 Chest, Pa & Lateral RAD 03/19/17 Resulted 11:59 Normal Saline (Normal PHA 03/19/17 Complete Saline Iv) 11:59 Wound Culture JONAS 03/19/17 In Process Deepw/Gs-Aer/Brenda 11:59 Blood Culture JONAS 03/19/17 In Process 11:59 Lactate - Lactic Acid LAB 03/19/17 Complete Lactate - Lactic Acid LAB 03/19/17 Logged 16:29 [address] In Facility As: ADMIT 03/19/17 Transmitted 14:12 Telemetry [facility] 03/19/17 In Process 14:12 Normal Saline (Normal PHA 03/19/17 In Process Saline Iv) 14:12 Prn Orders (Adult) PHA 03/19/17 In Process (May Use Prn Orders) 14:15 Lab Results Laboratory Tests Test 03/19/17 12:14 03/19/17 12:21 03/19/17 13:01 White Blood Count 7.5T/MM3 Red Blood Count 2.91M/MM3 Hemoglobin 8.4GM/DL Hematocrit 25.6% Mean Corpuscular Volume 88.0UM3 Mean Corpuscular Hemoglobin 28.9UUG Mean Corpuscular Hemoglobin Concent 32.8GM/DL RDW Standard Deviation 38.6FL Platelet Count 178T/MM3 Mean Platelet Volume 10.4UM3 Immature Granulocyte % (Auto) 0.1% Neutrophils (%) (Auto) 80.2% Lymphocytes (%) (Auto) 12.7% Monocytes (%) (Auto) 6.0% Eosinophils (%) (Auto) 0.7% Basophils (%) (Auto) 0.3% Absolute Immature Granulocyte (auto 0.01T/MM3 Absolute Neutrophils (auto) 6.1T/MM3 Absolute Lymphocytes (auto) 1.0T/MM3 Absolute Monocytes (auto) 0.5T/MM3 Absolute Eosinophils (auto) 0.1T/MM3 Absolute Basophils (auto) 0.0T/MM3 Plasma Lactate 1.6MMOL/L Turbidity < 20 Sodium Level 138MEQ/L Potassium Level 3.6MEQ/L Chloride Level 106MEQ/L Carbon Dioxide Level 21MEQ/L Anion Gap 11MEQ/L Blood Urea Nitrogen 10.0MG/DL Creatinine 0.7MG/DL Glomerular Filtration Rate Calc 80 BUN/Creatinine Ratio 14RATIO Glucose Level 115MG/DL Calculated Osmolality 266MOSM/KG Calcium Level 7.3MG/DL Total Bilirubin 0.60MG/DL Icterus Index < 2 Aspartate Amino Transf (AST/SGOT) 34U/L Alanine Aminotransferase (ALT/SGPT) 76U/L Alkaline Phosphatase 70U/L Troponin I < 0.012ng/ml Total Protein 4.8G/DL Albumin 2.4G/DL Globulin 2.4G/DL Albumin/Globulin Ratio 1.0RATIO Chemistry Specimen Hemolysis < 15 Urine Collection Type Straight cath Urine Color Yellow Urine Turbidity Clear Urine pH 7.5 Urine Specific [place] 1.015 Urine Protein Negative Urine Glucose (UA) Negative Urine Ketones Negative Urine Blood Negative Urine Nitrite Negative Urine Bilirubin Negative Urine Urobilinogen 0.2EU/DL Urine Leukocyte Esterase Negative Urinalysis Comment Microscopic not ind. Medications Current ED Medications Sodium Chloride 1,000 ml @ 1,000 mls/hr Q1H ONCE IV Last administered on t 11:59; Start 03/19/17 at 11:59; Stop 03/19/17 at 12:58; Status DC Sodium Chloride (Normal Saline IV) 1,000 ml @ 100 mls/hr Q10H IV ; Start at 14:12 Miscellaneous Medication (May use PRN orders) 1 PRN PRN ; Start 03/19/17 at 14:15 Progress Progress Patient postop from left mastectomy for breast cancer. Coumadin was restarted and Lovenox is being given. INR today is 1.15. Syncopal episode likely due to hypovolemia and anemia. Lactate was 1.7, WBC 7.5 hemoglobin down to 8.4. Chest x -ray was negative. Patient was given IV fluid total of 1.6 L of normal saline pressure gregoria from 80 systolic to a pressure of 130/[address] Lincoln did come and evaluate the patient. He has some concerns about the anemia and hypovolemic syncope. Spoke with Dr. Chapman who agreed to admit the patient to hospitalist service for 24-hour observation. GERMANIA LEONARD MD March 19, 2017 12:06
--- OUTSIDE RECORDS SUMMARY | 2017-03-19 12:07 | XMS REPORT | Continuity of Care Document ---
Author Author [facility] Organization [facility] Address Unknown Phone Unavailable Allergies [...] Status Pt. Type Provider Facility Loc./Unit Complaint [id number] 11/04/2013 14:10:00 2012 19:20:00 DIS Outpatient Kenia VASQUEZ, Jerome Richey [facility] KYLE
[2017-03-19 12:28] LABS: BASOPHILS % (AUTO) 0.3 % (0-2); EOSINOPHILS # (AUTO) 0.1 T/MM3 (0-0.5); EOSINOPHILS % (AUTO) 0.7 % (0-4); HCT - HEMATOCRIT 25.6 % (36-46); HGB - HEMOGLOBIN 8.4 GM/DL (12-16); IMMATURE GRANULOCYTE # (AUTO) 0.01 T/MM3 (0.00-0.03); IMMATURE GRANULOCYTE % (AUTO) 0.1 % (0.0-0.5); LYMPHOCYTES % (AUTO) 12.7 % (23-45); MEAN CORPUSCULAR HGB 28.9 UUG (26-34); MEAN CORPUSCULAR HGB CONC(MCHC 32.8 GM/DL (31-37); MEAN PLATELET VOLUME 10.4 UM3 (9.4-12.4); MONOCYTES # (AUTO) 0.5 T/MM3 (0-0.8); NEUTROPHILS #(AUTO)-ABSOLUTE 6.1 T/MM3 (1.8-7.7); NEUTROPHILS % (AUTO) 80.2 % (33-66); RED BLOOD COUNT 2.91 M/MM3 (4.00-5.20); WBC - WHITE BLOOD COUNT 7.5 T/MM3 (4.5-11.0)
--- NOTE | 2017-03-19 12:36 | NUR ---
Juan Jose collins in [facility] - 03/19/17 at 1238 by MELANI XRAY PORTABLE BEING DONE AT THIS TIME.
--- NOTE | 2017-03-19 12:38 | NUR ---
XRAY PATIENT TO XRAY PER CART.
[2017-03-19 12:40] LABS: ALBUMIN 2.4 G/DL (3.5-5.0); ALKALINE PHOSPHATASE 70 U/L (38-126); ALT (SGPT) 76 U/L (9-52); ANION GAP 11 MEQ/L (5-15); AST (SGOT) 34 U/L (14-36); BUN/CREATININE RATIO 14 RATIO (6-26); CALCIUM 7.3 MG/DL (8.4-10.2); CHLORIDE 106 MEQ/L (98-107); CO2 - CARBON DIOXIDE 21 MEQ/L (22-30); CREATININE 0.7 MG/DL (0.7-1.2); GLOMERULAR FILTRATION RATE 80; GLUCOSE 115 MG/DL (65-110); POTASSIUM 3.6 MEQ/L (3.6-5); SODIUM 138 MEQ/L (134-144); TOTAL PROTEIN 4.8 G/DL (6.3-8.2)
--- NOTE | 2017-03-19 12:45 | NUR ---
BACK FROM XRAY
--- NOTE | 2017-03-19 13:10 | NUR ---
PROVIDER DR PRINCE[employer], IN ROOM TO SEE PATIENT. ICE PACK APPLIED TO SURGICAL SITE TO ATTEMPT TO SLOW THE BLEEDING/DRAINAGE INTO THE RICARDO DRAINS.
[2017-03-19 13:11] LABS: BLOOD, URINE NEGATIVE (NEGATIVE); COLOR,URINE YELLOW (YELLOW); LEUKOCYTE ESTERASE ,URINE NEGATIVE (NEGATIVE); NITRITE,URINE NEGATIVE (NEGATIVE); UROBILINOGEN,URINE 0.2 EU/DL (NORMAL)
--- NOTE | 2017-03-19 13:33 | NUR ---
STATUS PATIENT IS RESTING IN BED WITH NO DIFFICULTIES OR DISTRESS NOTED. VSS CHARTED.
--- NOTE | 2017-03-19 13:38 | DI ---
INDICATION: ITS.REASON: dyspnea PROCEDURE: CHEST 2-VIEWS UPRIGHT (PA \T\ LAT) Encounter: Initial COMPARISON: March 01, 2014 FINDINGS: Surgical drains projecting over the left chest from recent mastectomy. Lung smith are grossly clear. No pneumothorax or obvious pleural effusion. Moderate enlargement of the cardiac silhouette. Prior sternotomy. Mediastinal contours are stable. Pulmonary vascularity appears normal. Impression: No focal pneumonia or congestive failure. .
--- NOTE | 2017-03-19 13:45 | NUR ---
PROVIDER DR PRINCE IN TO SEE PATIENT.
[2017-03-19] MEDS ORDERED: PRN ORDERS MC (14:15)
--- OUTSIDE RECORDS SUMMARY | 2017-03-19 14:31 | XMS REPORT | Continuity of Care Document ---
Author Author [facility] Organization [facility] Address Unknown Phone Unavailable Allergies Medications Problems [...] Status Pt. Type Provider Facility Loc./Unit Complaint [id number] 11/04/2013 14:10:00 2012 19:20:00 DIS Outpatient Kenia VASQUEZ, Jerome Richey [facility] KYLE
--- NOTE | 2017-03-19 14:40 | NUR ---
REPORT GIVEN TO MALACHI BRISCOE. NO QUESTIONS NOTED.
--- NOTE | 2017-03-19 14:41 | NUR ---
PROVIDER Umesh ESCOBAR POT FILLER IN TO SEE PATIENT.
--- NOTE | 2017-03-19 15:00 | NUR ---
Admit Patient admitted to medical unit room 146 from ED. Arrived by wheelchair. Able to stand and ambulate to bathroom and then to bed without any symptoms of dizziness or feeling faint. Patient reports feeling weak. Denies pain. Sites to left chest present with 2 RICARDO drains present. Patient answers admit questions appropriately.
[2017-03-19 15:03] VITALS: BP 147/66; PULSE 81; RESP 18; TEMP 96.6; O2SAT 100
[2017-03-19 15:05] VITALS: Ht 162.6 cm; Wt 66.4 kg
[2017-03-19] MEDS ORDERED: HYDROCODONE/APAP 5 mg/325 mg TABLET PO PRN (15:30)
--- NOTE | 2017-03-19 15:33 | HPPDOC ---
FRANCISCO ESCOBAR V AIR EXPORT OPERATIONS AGENT 03/19/17 1520: HPI - Adult Date DATE: 03/19/17 TIME: 15:11 General Chief Complaint: syncope, postoperative anemia History of Present Illness Amber is a less than 82-year-old female who is known to the hospitalist services as she was admitted 03/02/17 with GI bleeding. He was found to have diverticulosis with colon polyps as well as a left breast mass. She was discharged in stable condition on 03/04/17. She then underwent a left mastectomy on 03/16/17 under the care of Dr Lincoln following findings consistent with invasive ductal carcinoma. She is chronically anticoagulated due to chronic hypercoagulable anticardiolipin. On 03/17 she received Lovenox and oral Coumadin, and was discharged home. She did present back to [facility] yesterday on 03/18 for an outpatient Lovenox injection, however, did not take oral Coumadin. This morning she awoke and did not feel well. She reported having increased amount of drainage in her RICARDO drains and it was noted to be bloody. She did take a regular aspirin, however, had no further Coumadin or Lovenox today. She contacted Dr. Lincoln's office this morning to report her change in status. She was advised present acutely for further evaluation, however, when her friends came to pick her up. She was found on the floor following a syncopal episode. EMS was then contacted and patient was transported to [facility] emergency room for further evaluation and treatment. Initial blood pressure was low, 80 systolic. He was given IV fluids, both by EMS and while in the emergency room and laboratory studies were obtained. It was found to be anemic with a hemoglobin of 8.4, RBCs 2.91, WBC 7.5, hematocrit 25.6, platelet count 178. Sodium is 138, potassium 3.6, BUN 10, creatinine 0.7, glucose 115. Troponin is undetectable. Venous lactate 1.6. Urinalysis is negative. Chest x- ray is unremarkable. Given findings of anemia complicated by patient's postoperative status as well as chronic anticoagulation. The hospitalist services were contacted and accepted patient for outpatient admission for further evaluation and treatment. Dr. Lincoln was contacted for further surgical consultation. Did review advanced directives with patient and daughter. Patient does wish to be a full code. Past Medical History Past Medical History Left breast carcinoma-postmastectomy 03/16/17- [place] Anti-Cardiolipin Antibodies syndrome Recent GI bleed-February 2017 Coronary artery disease Referral vascular disease, peripheral artery disease. Chronic interstitial cystitis next line, dyslipidemia Diverticulosis. History GI bleed Surgical History Patient's Surgical History: Echocardiogram on 04/30/15 showed an EF of 55-65%, diastolic function was preserved. She had mild MR, TR and PI. Mild to moderate AI. 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 Left breast mastectomy-03/16/17 (Dr. Lincoln) Colonoscopy - 02/2017 ([place]) Cystoscopy in 2008 Bilateral cataracts, 2008 Cardiac bypass in 1999. MMK in 1995 CABG in 1992 NABIL/BSO in 1988 Cholecystectomy. Laser eye surgery Current Medications Home Meds Active Scripts Ibuprofen (Ibuprofen) 400 Mg Tablet, 400 MG PO Q6HR Y for PAIN for 10 Days, #40 TAB Prov:DIVINE URIAS [employer]PER[employer] AGENT 03/17/17 Hydrocodone/Acetaminophen (Goltry 5-325 Tablet) 5-325 Tablet, 1 TAB PO Q5H Y for PAIN, #10 TAB Prov:DIVINE URIAS [employer]PER[employer] AGENT 03/17/17 Reported Medications Acetaminophen (Acetaminophen) 500 Mg Tablet, 1 TAB PO HS, #60 TAB 1 Refill 03/02/17 Carboxymethylcellulose Sodium (Refresh Tears) 15 Ml Drops, 1 DROP BOTH EYES BID 08/31/15 Atorvastatin Calcium (Atorvastatin Calcium) 80 Mg Tablet, 0.5 TAB PO HS 08/31/15 Atenolol (Atenolol) 25 Mg Tablet, 0.5 TAB PO DAILY 03/01/14 Warfarin Sodium (Coumadin) 2.5 Mg Tablet, 1 TAB PO DAILY 05/03/09 Aspirin (Aspirin) 325 Mg Tablet, 1 TAB PO DAILY 05/03/09 Allergies: Coded Allergies: Sulfa (Sulfonamide Antibiotics) (Verified Allergy, Intermediate, HIVES, 03/19/17) pneumococcal vaccine (Verified Allergy, Intermediate, 03/19/17) redness and swelling Family History Family History: Mother had dementia, heart disease. Father had heart disease. Sister had heart disease. Brother of Bright's disease at age 19. 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 Advance Directives: Yes DPOA for Healthcare Only, Yes Full Code Social History Comments PCP Dr Maddox Review of Systems Constitutional: REPORTS: appetite decrease, fatigue, weakness Musculoskeletal Comments Left mastectomy incision with RICARDO drain 2 Physical Exam General General Nourishment: well nourished, well developed Vital Signs Vital Signs Date Time Temp Pulse Resp B/P Pulse Ox O2 Delivery O2 Flow Rate FiO2 03/19/17 15:03 96.6 81 18 147/66 100 Room Air Height (Feet): 5 Height (Inches): 4.00 ENMT Brief: FOUND: mucosa moist, normal dentition, NOT FOUND: pharnyx erythema Respiratory Brief: FOUND: clear all smith, equal bilaterally, NOT FOUND: wheezes Cardiovascular (brief) Cardiac Brief: FOUND: regular rate, regular rhythm, NOT FOUND: murmur, pedal edema Abdomen (brief) Abdominal Brief: FOUND: BS normo active x4, soft, NOT FOUND: distended, tender Musculoskeletal (brief) Musculoskeletal Brief: FOUND: tenderness (Left breast mastectomy, incisional tenderness) Integumentary (brief) Integumentary Brief: FOUND: dry, pink, warm Comments RICARDO drain 2 with bloody drainage Neurologic RN Documented GCS Eye Opening: Verbal: Motor: Total: Psychiatric (brief) FOUND: alert, attentive, normal affect, oriented Laboratory Laboratory Tests Test 03/19/17 12:14 03/19/17 12:21 03/19/17 13:01 White Blood Count 7.5T/MM3 Red Blood Count 2.91M/MM3 Hemoglobin 8.4GM/DL Hematocrit 25.6% Mean Corpuscular Volume 88.0UM3 Mean Corpuscular Hemoglobin 28.9UUG Mean Corpuscular Hemoglobin Concent 32.8GM/DL RDW Standard Deviation 38.6FL Platelet Count 178T/MM3 Mean Platelet Volume 10.4UM3 Immature Granulocyte % (Auto) 0.1% Neutrophils (%) (Auto) 80.2% Lymphocytes (%) (Auto) 12.7% Monocytes (%) (Auto) 6.0% Eosinophils (%) (Auto) 0.7% Basophils (%) (Auto) 0.3% Absolute Immature Granulocyte (auto 0.01T/MM3 Absolute Neutrophils (auto) 6.1T/MM3 Absolute Lymphocytes (auto) 1.0T/MM3 Absolute Monocytes (auto) 0.5T/MM3 Absolute Eosinophils (auto) 0.1T/MM3 Absolute Basophils (auto) 0.0T/MM3 Plasma Lactate 1.6MMOL/L Turbidity < 20 Sodium Level 138MEQ/L Potassium Level 3.6MEQ/L Chloride Level 106MEQ/L Carbon Dioxide Level 21MEQ/L Anion Gap 11MEQ/L Blood Urea Nitrogen 10.0MG/DL Creatinine 0.7MG/DL Glomerular Filtration Rate Calc 80 BUN/Creatinine Ratio 14RATIO Glucose Level 115MG/DL Calculated Osmolality 266MOSM/KG Calcium Level 7.3MG/DL Total Bilirubin 0.60MG/DL Icterus Index < 2 Aspartate Amino Transf (AST/SGOT) 34U/L Alanine Aminotransferase (ALT/SGPT) 76U/L Alkaline Phosphatase 70U/L Troponin I < 0.012ng/ml Total Protein 4.8G/DL Albumin 2.4G/DL Globulin 2.4G/DL Albumin/Globulin Ratio 1.0RATIO Chemistry Specimen Hemolysis < 15 Urine Collection Type Straight cath Urine Color Yellow Urine Turbidity Clear Urine pH 7.5 Urine Specific [place] 1.015 Urine Protein Negative Urine Glucose (UA) Negative Urine Ketones Negative Urine Blood Negative Urine Nitrite Negative Urine Bilirubin Negative Urine Urobilinogen 0.2EU/DL Urine Leukocyte Esterase Negative Urinalysis Comment Microscopic not ind. Assessment & Plan Problems: (1) Postoperative anemia Status: Acute Assessment & Plan: Present on admission, hemoglobin 8.4. Last reported hemoglobin on 03/04 was 10.1 (2) Syncope Status: Acute Qualifiers: Encounter type: initial encounter (3) sign maker current use of anticoagulant Status: Chronic Assessment & Plan: Chronically on Coumadin (4) S/P mastectomy Status: Acute Qualifiers: Laterality: left Qualified Codes: Z90.12 - Acquired absence of left breast and nipple Assessment & Plan: On 03/16/17 under the care of Dr. Lincoln (5) CAD (coronary artery disease) Status: Chronic (6) PVD (peripheral vascular disease) Status: Chronic (7) Dyslipidemia Status: Chronic (8) Hypercoagulable state Status: Chronic (9) Anticardiolipin antibody positive Status: Chronic (10) PAD (peripheral artery disease) Status: Chronic (11) Chronic interstitial cystitis with hematuria Status: Chronic (12) Diverticulosis Status: Chronic (13) GI bleed Status: Resolved (14) Breast cancer, left Status: Resolved Qualifiers: Breast location: unspecified site of breast Patient sex: female Qualified Codes: C50.912 - Malignant neoplasm of unspecified site of left female breast Plan/Intensity of Service Admit patient to outpatient observation under the care of Dr. Valdez for postoperative anemia with syncopal episode Monitor outtake and incisional drainage carefully from left mastectomy RICARDO drains. Consultation placed to Dr. Lincoln for ongoing surgical evaluation and recommendation Place type and screen as patient may require transfusion. Hemoglobin today on admission was 8.4. Will recheck at 1800 and midnight. Avoid all anticoagulation at this time given bleeding from incision. Discussed with pt and family . Risk versus benefit of anticoagulation. Place patient on cardiac telemetry to monitor for dysrhythmias. Normal saline at 100 ML per hour for ongoing hydration SCDs to bilateral lower extremity for DVT prophylaxis She may have Goltry as needed for postoperative pain control Will recheck CBC and BMP tomorrow morning to follow blood counts, renal function and electrolytes Will discuss further plan of care with attending, Dr. Valdez At time of discharge medical care will return to her primary care provider, Dr. Maddox DVT Prophylaxis: SCD'S Code Status Full Code Hospital Course Summary Disclaimer The hospital course summary below is not to be considered part of the above Progress Note. Hospital Course Summary Admit patient to outpatient observation under the care of Dr. Valdez for postoperative anemia with syncopal episode Monitor outtake and incisional drainage carefully from left mastectomy RICARDO drains. Consultation placed to Dr. Lincoln for ongoing surgical evaluation and recommendation Place type and screen as patient may require transfusion. Hemoglobin today on admission was 8.4. Will recheck at 1800 and midnight. Avoid all anticoagulation at this time given bleeding from incision. Discussed with pt and family . Risk versus benefit of anticoagulation. Place patient on cardiac telemetry to monitor for dysrhythmias. Normal saline at 100 ML per hour for ongoing hydration SCDs to bilateral lower extremity for DVT prophylaxis She may have Goltry as needed for postoperative pain control Will recheck CBC and BMP tomorrow morning to follow blood counts, renal function and electrolytes Will discuss further plan of care with attending, Dr. Valdez At time of discharge medical care will return to her primary care provider, CINDY Dias MD 03/19/17 1701: Past Medical History Current Medications Home Meds Active Scripts Ibuprofen (Ibuprofen) 400 Mg Tablet, 400 MG PO Q6HR Y for PAIN for 10 Days, #40 TAB Prov:DIVINE URIAS [employer]PER[employer] AGENT 03/17/17 Hydrocodone/Acetaminophen (Goltry 5-325 Tablet) 5-325 Tablet, 1 TAB PO Q5H Y for PAIN, #10 TAB Prov:DIVINE URIAS [employer]PER[employer] AGENT 03/17/17 Reported Medications Acetaminophen (Acetaminophen) 500 Mg Tablet, 1 TAB PO HS, #60 TAB 1 Refill 03/02/17 Carboxymethylcellulose Sodium (Refresh Tears) 15 Ml Drops, 1 DROP BOTH EYES BID 08/31/15 Atorvastatin Calcium (Atorvastatin Calcium) 80 Mg Tablet, 0.5 TAB PO HS 08/31/15 Atenolol (Atenolol) 25 Mg Tablet, 0.5 TAB PO DAILY 03/01/14 Warfarin Sodium (Coumadin) 2.5 Mg Tablet, 1 TAB PO DAILY 05/03/09 Aspirin (Aspirin) 325 Mg Tablet, 1 TAB PO DAILY 05/03/09 Allergies: Coded Allergies: Sulfa (Sulfonamide Antibiotics) (Verified Allergy, Intermediate, HIVES, 03/19/17) pneumococcal vaccine (Verified Allergy, Intermediate, 03/19/17) redness and swelling Assessment & Plan Plan/Intensity of Service Have independently interviewed and examined pt. Chart reviewed. Case discussed with ED physician, Dr Lincoln, and my AIR EXPORT OPERATIONS AGENT. Care plan developed with my supervision; agree with above. Had left mastectomy on 03/16. On Lovenox while INR increases. This morning, not feeling well-more tire/weak. Having increased bloody drainage from mastotomy sites. Before able to come in to clinic for evaluation, had syncopal event. Did not feel heart racing. Did feel more weak, dizzy and unsteady. Has been eating well. No nausea. Stools slow-did have prune juice this am. Breathing well without SOA or congestion. Minimal post op pain-more of a discomfort. Lungs: decreased, no distress CV: regular AB; soft nt/nd +BS MSE: awake alert appropriate Plan: OBS, IVF for support, monitor hemoglobin, hold anticoagulation due to bleeding, Type and screen-transfuse as indicated, Monitor tele, Will consult Dr Lincoln to evaluate wound, SCD for DVT prevention, PT/OT in am to assess functional status. FRANCISCO ESCOBAR APRN March 19, 2017 15:20 CINDY GAMEZ MD March 19, 2017 17:01
--- NOTE | 2017-03-19 15:41 | CONSF ---
DATE OF SERVICE 03/19/2017 FINDINGS Mrs. Hughes is an 82-year-old female who earlier today had notified my nurse that she felt as if she was going to "pass out." The patient also had informed my nurse that she had begun to notice some increasing bloody drainage from her Calin-Garza drains. The patient earlier this week had undergone a left mastectomy secondary to invasive ductal carcinoma of the breast. I did inform my nurse to have the patient notify EMS and be brought forth to the hospital as a result of the above circumstances. Apparently the patient called a nearby a neighbor and was in the process of trying to come into the hospital which she did have a syncopal event. The patient was subsequently brought in to [facility] for further evaluation. The patient does have a history for hypercoagulable state and did begin anticoagulation 24 hours after surgery. PHYSICAL EXAMINATION The patient was seen earlier in the emergency room. VITAL SIGNS: Please refer to EMR. HEENT: Normocephalic. Pupils are equally round and react to light and accommodation. CHEST: Clear to auscultation. Attention was focused to the left anterior chest wall. The mastectomy incision was without any element of drainage. There was some ecchymosis of the skin. A large hematoma was not present but one could appreciate a seroma beneath the surface of the skin and there was a slight fluid wave present. There was bloody drainage also noted within her Calin-Garza drains. The material within the RICARDO drain was not clotted. RICARDO drains were stripped and more fluid was able to be aspirated from beneath the surface of the skin. Again, a large firm hematoma was not present involving the chest wall. ASSESSMENT 82-year-old female status post left mastectomy with history for hypercoagulable state who has developed a postoperative seroma and syncopal event earlier today. PLAN It was my recommendation that we go ahead and place the patient in the hospital for further care and observation. Would hold further anticoagulation at this time. Would recheck hemoglobin later this afternoon. The hospitalist system was kind enough to place the patient in the hospital. I will follow the patient from a general surgical standpoint. MAHESH
[2017-03-19] MEDS: NORMAL SALINE 1,000 ML IV SCH (15:45)
[2017-03-19] MEDS ORDERED: ONDANSETRON 4mg/2ml INJECTION IV PRN (16:30)
[2017-03-19 17:08] LABS: BASOPHILS % (AUTO) 0.1 % (0-2); EOSINOPHILS % (AUTO) 0.4 % (0-4); HCT - HEMATOCRIT 27.7 % (36-46); HGB - HEMOGLOBIN 9.1 GM/DL (12-16); IMMATURE GRANULOCYTE # (AUTO) 0.01 T/MM3 (0.00-0.03); IMMATURE GRANULOCYTE % (AUTO) 0.1 % (0.0-0.5); LYMPHOCYTES # (AUTO) 1.3 T/MM3 (1-4.8); MEAN CORPUSCULAR HGB 28.6 UUG (26-34); MEAN CORPUSCULAR HGB CONC(MCHC 32.9 GM/DL (31-37); MEAN CORPUSCULAR VOLUME 87.1 UM3 (80-100); MEAN PLATELET VOLUME 10.4 UM3 (9.4-12.4); MONOCYTES # (AUTO) 0.4 T/MM3 (0-0.8); MONOCYTES % (AUTO) 4.3 % (0-9.0); NEUTROPHILS #(AUTO)-ABSOLUTE 6.7 T/MM3 (1.8-7.7); NEUTROPHILS % (AUTO) 80.1 % (33-66); RED BLOOD COUNT 3.18 M/MM3 (4.00-5.20); WBC - WHITE BLOOD COUNT 8.3 T/MM3 (4.5-11.0)
[2017-03-19 18:05] LABS: INR 1.14 (0.76-1.04); PROTHROMBIN TIME 12.4 SEC (9.31-12.49)
--- NOTE | 2017-03-19 19:03 | NUR ---
Status Patient resting quietly in bed. Denies pain when asked. Good appetite with meals. RICARDO drains present to left chest. Minimal needs since admit. Bed alarm on. Call light within reach.
[2017-03-19] MEDS: ATORVASTATIN 40 MG TABLET PO SCH (21:01)
[2017-03-19 23:24] VITALS: BP 142/62; PULSE 75; RESP 16; TEMP 97.6; O2SAT 99
[2017-03-19] MEDS: ACETAMINOPHEN 325 MG TABLET PO PRN (23:30)
[2017-03-20 00:38] LABS: BASOPHILS % (AUTO) 0.3 % (0-2); EOSINOPHILS # (AUTO) 0.3 T/MM3 (0-0.5); EOSINOPHILS % (AUTO) 3.4 % (0-4); HCT - HEMATOCRIT 23.2 % (36-46); HGB - HEMOGLOBIN 7.9 GM/DL (12-16); IMMATURE GRANULOCYTE # (AUTO) 0.02 T/MM3 (0.00-0.03); IMMATURE GRANULOCYTE % (AUTO) 0.3 % (0.0-0.5); LYMPHOCYTES # (AUTO) 2.5 T/MM3 (1-4.8); LYMPHOCYTES % (AUTO) 34.1 % (23-45); MEAN CORPUSCULAR HGB 28.9 UUG (26-34); MEAN CORPUSCULAR HGB CONC(MCHC 34.1 GM/DL (31-37); MEAN PLATELET VOLUME 10.3 UM3 (9.4-12.4); MONOCYTES # (AUTO) 0.6 T/MM3 (0-0.8); NEUTROPHILS % (AUTO) 53.9 % (33-66); RED BLOOD COUNT 2.73 M/MM3 (4.00-5.20); WBC - WHITE BLOOD COUNT 7.4 T/MM3 (4.5-11.0)
[2017-03-20] MEDS: NORMAL SALINE 1,000 ML IV SCH (03:20)
--- NOTE | 2017-03-20 06:23 | NUR ---
STATUS PT A/OX3. HAD SOME INCISIONAL PAIN RATED AT 4/10. ADMINISTERED TYLENOL CHARTED. PAIN DECREASED TO 0/10. PT REPORTED SLIGHT DIZZINESS WITH AMBULATION TO BR, BUT STATED THAT IT WAS FAR LESS THAN EARLIER IN DAY. IVF RUNNING CHARTED. DENIED NAUSEA/VOMITING. VOIDED TWICE. BED ALARM IN USE. WILL CONTINUE TO MONITOR.
[2017-03-20 06:45] LABS: ALBUMIN 2.4 G/DL (3.5-5.0); ALKALINE PHOSPHATASE 63 U/L (38-126); ALT (SGPT) 73 U/L (9-52); ANION GAP 6 MEQ/L (5-15); AST (SGOT) 30 U/L (14-36); BUN/CREATININE RATIO 16 RATIO (6-26); CALCIUM 7.9 MG/DL (8.4-10.2); CHLORIDE 103 MEQ/L (98-107); CO2 - CARBON DIOXIDE 24 MEQ/L (22-30); CREATININE 0.5 MG/DL (0.7-1.2); GLOMERULAR FILTRATION RATE 118; GLUCOSE 97 MG/DL (65-110); POTASSIUM 4.2 MEQ/L (3.6-5); SODIUM 133 MEQ/L (134-144); TOTAL PROTEIN 4.7 G/DL (6.3-8.2)
[2017-03-20 07:14] LABS: BASOPHILS % (AUTO) 0.4 % (0-2); EOSINOPHILS # (AUTO) 0.2 T/MM3 (0-0.5); EOSINOPHILS % (AUTO) 4.2 % (0-4); HCT - HEMATOCRIT 23.9 % (36-46); HGB - HEMOGLOBIN 7.8 GM/DL (12-16); LYMPHOCYTES # (AUTO) 1.9 T/MM3 (1-4.8); LYMPHOCYTES % (AUTO) 36.1 % (23-45); MEAN CORPUSCULAR HGB 28.4 UUG (26-34); MEAN CORPUSCULAR HGB CONC(MCHC 32.6 GM/DL (31-37); MEAN CORPUSCULAR VOLUME 86.9 UM3 (80-100); MEAN PLATELET VOLUME 10.2 UM3 (9.4-12.4); MONOCYTES # (AUTO) 0.4 T/MM3 (0-0.8); MONOCYTES % (AUTO) 7.8 % (0-9.0); NEUTROPHILS #(AUTO)-ABSOLUTE 2.7 T/MM3 (1.8-7.7); NEUTROPHILS % (AUTO) 51.5 % (33-66); RED BLOOD COUNT 2.75 M/MM3 (4.00-5.20); WBC - WHITE BLOOD COUNT 5.2 T/MM3 (4.5-11.0)
[2017-03-20 07:35] VITALS: BP 141/50; PULSE 72; RESP 14; TEMP 97.5; O2SAT 98
[2017-03-20] MEDS: ATENOLOL 25 MG TABLET PO SCH (08:03)
--- NOTE | 2017-03-20 11:32 | NUR ---
STATUS PT ALERT AND ORIENTED X3. UP WITH STANDBY ASSIST. ON ROOM AIR. DENIES PAIN. FRIENDLY AND COOPERATIVE WITH STAFF. RESTING IN BED WITH BED ALARM ON AND CALL LIGHT IN REACH. DENIES NEEDS AT THIS TIME.
[2017-03-20] MEDS ORDERED: NORMAL SALINE 500 ML IV SCH (12:10)
[2017-03-20] MEDS ORDERED: DiphenhydrAMINE 25 MG CAPSULE PO ONE (12:15)
[2017-03-20] MEDS: ACETAMINOPHEN 325 MG TABLET PO PRN (13:27)
[2017-03-20 13:28] VITALS: BP 124/83; PULSE 72; RESP 16; TEMP 97.7; O2SAT 100
--- NOTE | 2017-03-20 15:52 | PNPDOC ---
Subjective Date DATE: 03/20/17 TIME: 15:40 Subjective F/U: Post-op anemia Doing okay. Has been up walking with nursing-felt good to be up. Strength slowly improving. Notes less drainage. Minimal incisional discomfort. Breathing well. Appetite stable. No f/c. Objective Vital Signs Vital signs Vital Signs Date Time Temp Pulse Resp B/P Pulse Ox O2 Delivery O2 Flow Rate FiO2 03/20/17 13:28 97.7 72 16 124/83 100 Room Air Height (Feet): 5 Height (Inches): 4.00 Weight (Kilograms): 68.300 General General Appearance: Alert, Orientated x 3, Well Nourished, Well Developed, Cooperative, Looks Stated Age Eyes (Brief) Eyes: FOUND: EOMI, PERRL, NOT FOUND: scleral icterus ENMT (Brief) ENMT: FOUND: hearing intact, mucosa moist Neck (Brief) Neck: FOUND: nuchal rigidity, spasm, NOT FOUND: midline Respiratory (Brief) Respiratory: FOUND: clear all smith, equal bilaterally, NOT FOUND: rales, wheezes Cardiovascular (Brief) Cardiac: FOUND: regular rate, regular rhythm, NOT FOUND: pedal edema Abdomen (Brief) Abdominal: FOUND: BS normo active x4, soft, NOT FOUND: distended, tender Extremities (Brief) Extremity : Side: Bilateral Extremity: leg Extremity Finding: NOT FOUND: edema Musculoskeletal (Brief) Musculoskeletal: NOT FOUND: deformity, extremities move equally, spasm Neurologic (Brief) Neurological: FOUND: cranial 2-12 intact, motor (Intact ) Psychiatric (Brief) Psychiatric: FOUND: alert, attentive, normal affect, oriented Laboratory Laboratory Laboratory Tests 03/19/17 12:21 03/20/17 05:49 Laboratory Tests 03/19/17 12:14 03/19/17 16:54 03/20/17 00:29 03/20/17 06:56 Microbiology Microbiology Microbiology Date/Time Source Procedure Growth Status 03/19/17 13:05 Peripheral/Iv Start Blood Culture - Preliminary NO GROWTH AFTER 24 HOURS Resulted 03/19/17 12:13 Peripheral/Iv Start Blood Culture - Preliminary NO GROWTH AFTER 24 HOURS Resulted 03/19/17 12:12 Breast Left Gram Stain - Final Resulted 03/19/17 12:12 Breast Left - Preliminary No growth Resulted Assessment & Plan Problems: (1) Postoperative anemia Status: Acute Assessment & Plan: Present on admission, hemoglobin 8.4. 03/20: HGB decreased to 7.8 - Transfusion 1 unit pRBC given (2) Syncope Status: Acute Qualifiers: Encounter type: initial encounter (3) halfway current use of anticoagulant Status: Chronic Assessment & Plan: Chronically on Coumadin (4) S/P mastectomy Status: Acute Qualifiers: Laterality: left Qualified Codes: Z90.12 - Acquired absence of left breast and nipple Assessment & Plan: On 03/16/17 under the care of Dr. Lincoln (5) CAD (coronary artery disease) Status: Chronic (6) PVD (peripheral vascular disease) Status: Chronic (7) Dyslipidemia Status: Chronic (8) Hypercoagulable state Status: Chronic (9) Anticardiolipin antibody positive Status: Chronic (10) PAD (peripheral artery disease) Status: Chronic (11) Chronic interstitial cystitis with hematuria Status: Chronic (12) Diverticulosis Status: Chronic (13) GI bleed Status: Resolved (14) Breast cancer, left Status: Resolved Qualifiers: Breast location: unspecified site of breast Patient sex: female Qualified Codes: C50.912 - Malignant neoplasm of unspecified site of left female breast Plan/Intensity of Service Transfusion 1 unit pRBC due to HGB 7.8. May d/c IVF. PT/OT to help improve functional status. Discussed with Dr Lincoln - will need to hold on Lovenox for the next several days to allow for healing. Would worry about increased bleeding if restart anticoagulation currently. Recheck CBC in am due to anemia and transfusion. Repeat BMP in am as sodium with decrease. Case discussed with CM and Dr Lincoln. Time spent with patient care 35 minutes. DVT Prophylaxis: SCD'S Code Status Full Code Hospital Course Summary Disclaimer The hospital course summary below is not to be considered part of the above Progress Note. Hospital Course Summary 03/19 OBS Admit patient to outpatient observation under the care of Dr. Valdez for postoperative anemia with syncopal episode Monitor outtake and incisional drainage carefully from left mastectomy RICARDO drains. Consultation placed to Dr. Lincoln for ongoing surgical evaluation and recommendation Place type and screen as patient may require transfusion. Hemoglobin today on admission was 8.4. Will recheck at 1800 and midnight. Avoid all anticoagulation at this time given bleeding from incision. Discussed with pt and family . Risk versus benefit of anticoagulation. Place patient on cardiac telemetry to monitor for dysrhythmias. Normal saline at 100 ML per hour for ongoing hydration SCDs to bilateral lower extremity for DVT prophylaxis She may have [place] as needed for postoperative pain control Will recheck CBC and BMP tomorrow morning to follow blood counts, renal function and electrolytes Will discuss further plan of care with attending, Dr. Valdez At time of discharge medical care will return to her primary care provider, Dr. Maddox 03/20 Doing okay. Has been up walking with nursing-felt good to be up. Strength slowly improving. Notes less drainage. Minimal incisional discomfort. Breathing well. Appetite stable. No f/c. Transfusion 1 unit pRBC due to HGB 7.8. March d/c IVF. PT/OT to help improve functional status. Discussed with Dr Lincoln - will need to hold on Lovenox for the next several days to allow for healing. Would worry about increased bleeding if restart anticoagulation currently. Recheck CBC in am due to anemia and transfusion. Repeat BMP in am as sodium with decrease. CINDY GAMEZ MD March 20, 2017 15:45
[2017-03-20 16:15] VITALS: BP 125/60; PULSE 72; RESP 14; TEMP 97.7; O2SAT 98
--- NOTE | 2017-03-20 17:20 | NUR ---
SHIFT SUMMARY PT IS IN BED AT THIS TIME. PT IS ALERT AND ORIENTED X3. RA. DENIED PAIN. PT COOPERATES WITH TREATMENTS AND CARE. PT GETS UP WITH X1 ASSIST. PT HAD A MASTECTOMY SOME DAYS AGO. PT HAS TWO RICARDO DRAINAGE IN THE LEFT CHEST. INCISION DOES NOT PRESENT ANY DRAINAGE. PT USES THE CALL LIGHT WHEN SHE NEEDED. FAMILY VISITED HER TODAY. CALL LIGHT WITHIN REACH. BLOOD TRANSFUSION PT HAD A LOW HBG CHARTED. PT RECEIVED A BLOOD TRANSFUSION. CONSENT FORM WAS EXPLAINED TO PT. PT WAS EDUCATED IN COMMON REACTIONS. PT HAD A BLOOD TRANSFUSION BEFORE. PT IS ALERT AND ORIENTED X3. BEGIN TRANSFUSION IN 60 ML/HR. WILL CONTINUE TO MONITOR NO S/S OF INFUSION REACTION. INCREASE INFUSION TO 100 ML/HR. 1 HOUR: NO S/S OF INFUSION REACTION. INCREASE INFUSION TO 120 ML/HR 2 HOUR: PT CONTINUE WITH INFUSION WITH NO S/S OF INFUSION REACTION.
--- NOTE | 2017-03-20 17:50 | PNF ---
DATE OF SERVICE 03/20/2017 FINDINGS Mrs. Hughes today was without complaints. Denies significant discomfort involving her left anterior chest. EXAM VITAL SIGNS: Afebrile, normotensive. Last recorded vitals include temperature 97.5, pulse 72, respirations 14, blood pressure 141/50, SAO2 98% room air. HEENT: Normocephalic. Pupils are equally round and react to light and accommodation. CHEST: Clear to auscultation. Attention was then focused to her left anterior chest wall. The skin is ecchymotic as a result of her recent probable bleed beneath the mastectomy flaps. Fortunately, there is no evidence for significant hematoma. One can see a component of some seroma beneath the skin flaps. Drains were stripped and are still functioning. The bloody material that is being obtained is not "clotted." There is no increase in the size of the seroma involving the left anterior chest wall. 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 Patient with known hypercoagulable state and began re-anticoagulation fairly quickly after surgery resulting in formation of seroma/small hematoma. PLAN I agree with transfusion of this patient. Her hemoglobin is "borderline" this morning. Hemoglobin was 7.8. From a general surgical standpoint, I do not feel we need to return the patient to the operative suite for evacuation of hematoma. I do believe the seroma and small hematoma that is present involving the anterior chest wall will be able to be removed with the drains that are in place and functioning. The big question is when to reinitiate her anticoagulation. Would prefer to hold anticoagulation over the weekend and perhaps on Thursday give her DVT dosing of Lovenox at 40 mg daily. Would not reinitiate Coumadinization at this time. Will ask for Dr. Au to see the patient over the weekend during my absence. MAHESH
[2017-03-20 18:12] LABS: HGB - HEMOGLOBIN 9.1 GM/DL (12-16)
[2017-03-20] MEDS: ATORVASTATIN 40 MG TABLET PO SCH (21:29)
[2017-03-21] VITALS (7 sets, daily range): BP systolic 127–171; BP diastolic 55–84; PULSE 18–97; RESP 16–18; TEMP 97.4–97.8; O2SAT 97–99
--- NOTE | 2017-03-21 04:22 | NUR ---
Status Pt denied dizziness or lightheadedness with ambulation to BR in evening. Stated she felt "pretty good." Denied any pain/nausea/vomiting during shift so far. VSS. IV locked. Bed alarm on. Call light within reach. No new concerns at this time.
[2017-03-21 05:45] LABS: BASOPHILS % (AUTO) 0.3 % (0-2); EOSINOPHILS # (AUTO) 0.3 T/MM3 (0-0.5); EOSINOPHILS % (AUTO) 5.2 % (0-4); HCT - HEMATOCRIT 30.3 % (36-46); IMMATURE GRANULOCYTE # (AUTO) 0.01 T/MM3 (0.00-0.03); IMMATURE GRANULOCYTE % (AUTO) 0.2 % (0.0-0.5); LYMPHOCYTES # (AUTO) 2.5 T/MM3 (1-4.8); LYMPHOCYTES % (AUTO) 38.7 % (23-45); MEAN CORPUSCULAR HGB 27.3 UUG (26-34); MEAN CORPUSCULAR VOLUME 82.8 UM3 (80-100); MEAN PLATELET VOLUME 10.2 UM3 (9.4-12.4); MONOCYTES # (AUTO) 0.4 T/MM3 (0-0.8); MONOCYTES % (AUTO) 6.1 % (0-9.0); NEUTROPHILS #(AUTO)-ABSOLUTE 3.2 T/MM3 (1.8-7.7); NEUTROPHILS % (AUTO) 49.5 % (33-66); RED BLOOD COUNT 3.66 M/MM3 (4.00-5.20); WBC - WHITE BLOOD COUNT 6.5 T/MM3 (4.5-11.0)
[2017-03-21 05:58] LABS: ANION GAP 8 MEQ/L (5-15); BUN/CREATININE RATIO 18 RATIO (6-26); CALCIUM 8.3 MG/DL (8.4-10.2); CHLORIDE 101 MEQ/L (98-107); CO2 - CARBON DIOXIDE 26 MEQ/L (22-30); CREATININE 0.6 MG/DL (0.7-1.2); GLOMERULAR FILTRATION RATE 95; GLUCOSE 99 MG/DL (65-110); POTASSIUM 4.1 MEQ/L (3.6-5); SODIUM 135 MEQ/L (134-144)
[2017-03-21] MEDS: ATENOLOL 25 MG TABLET PO SCH (08:29)
--- NOTE | 2017-03-21 11:28 | PNPDOC ---
WILNER LANCE APPRENTICE PATTERN MAKER 03/21/17 1122: Subjective Date DATE: 03/21/17 TIME: 11:18 Subjective Amber feels better than yesterday, but is still a little dizzy and lightheaded. She states that today is the first day when she hasn't felt like she "wants to ". She isn't keeping track of the drainage, but her total output yesterday was higher than the day before. She denies any incisional pain. She denies feeling short of breath. She denies abdominal pain or nausea, and has been eating well. She states that last night was the first night she's been able to rest fairly well. She mentioned that her son will be coming in late tonight and plans to help care for her at home. Objective Vital Signs Vital signs Vital Signs Date Time Temp Pulse Resp B/P Pulse Ox O2 Delivery O2 Flow Rate FiO2 03/21/17 08:31 97.4 70 18 163/69 Room Air 03/21/17 00:31 99 Height (Feet): 5 Height (Inches): 4.00 Weight (Kilograms): 74.400 Laboratory Laboratory Laboratory Tests 03/19/17 12:21 03/20/17 05:49 03/21/17 05:26 Laboratory Tests 03/19/17 12:14 03/19/17 16:54 03/20/17 00:29 03/20/17 06:56 03/20/17 17:36 03/21/17 05:26 Microbiology Microbiology Microbiology Date/Time Source Procedure Growth Status 03/19/17 13:05 Peripheral/Iv Start Blood Culture - Preliminary NO GROWTH AFTER 24 HOURS Resulted 03/19/17 12:13 Peripheral/Iv Start Blood Culture - Preliminary NO GROWTH AFTER 24 HOURS Resulted 03/19/17 12:12 Breast Left Gram Stain - Final Resulted 03/19/17 12:12 Breast Left - Preliminary NO GROWTH AFTER 24 HOURS Resulted Assessment & Plan Problems: (1) Postoperative anemia Status: Acute Assessment & Plan: Present on admission, hemoglobin 8.4. 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 Symptoms present but not as severe. Start orthostatics BID. Lovenox and Coumadin remain on hold. PT/OT - recommends IP PT; HH; she has a 4WW at home. Dr. Au covering for Dr. Lincoln - drainage was 169 yesterday; 35 mL so far today. Constipation - no BM since admission. Start MiraLAX and Senna; MOM and Dulcolax PRN. Not interested in HH but plans on ROTP. Decreased breath sounds - start IS. Discussed with Dr. Awan. Possible dc in the next 24-48 hrs. DVT Prophylaxis: SCD'S Code Status Full Code Hospital Course Summary Disclaimer The hospital course summary below is not to be considered part of the above Progress Note. Hospital Course Summary 03/19 OBS Admit patient to outpatient observation under the care of Dr. Valdez for postoperative anemia with syncopal episode Monitor outtake and incisional drainage carefully from left mastectomy RICARDO drains. Consultation placed to Dr. Lincoln for ongoing surgical evaluation and recommendation Place type and screen as patient may require transfusion. Hemoglobin today on admission was 8.4. Will recheck at 1800 and midnight. Avoid all anticoagulation at this time given bleeding from incision. Discussed with pt and family . Risk versus benefit of anticoagulation. Place patient on cardiac telemetry to monitor for dysrhythmias. Normal saline at 100 ML per hour for ongoing hydration SCDs to bilateral lower extremity for DVT prophylaxis She may have [place] as needed for postoperative pain control Will recheck CBC and BMP tomorrow morning to follow blood counts, renal function and electrolytes Will discuss further plan of care with attending, Dr. Valdez At time of discharge medical care will return to her primary care provider, Dr. Maddox 03/20/17 Inpatient status. Transfusion 1 unit pRBC due to HGB 7.8. May d/c IVF. PT/OT to help improve functional status. Discussed with Dr Lincoln - will need to hold on Lovenox for the next several days to allow for healing. Would worry about increased bleeding if restart anticoagulation currently. 03/21/17 Anemia - improved after transfusion yesterday. Symptoms present but not as severe. Start orthostatics BID. Lovenox and Coumadin remain on hold. PT/OT - recommends IP PT; HH; she has a 4WW at home. Dr. Au covering for Dr. Lincoln - drainage was 169 yesterday; 35 mL so far today. Constipation - no BM since admission. Start MiraLAX and Senna; MOM and Dulcolax PRN. Not interested in HH but plans on ROTP. Decreased breath sounds - start IS. Discussed with Dr. Awan. Possible dc in the next 24-48 hrs. DICK AWAN MD 03/21/17 3112: Assessment & Plan Assessment 03/21/2017-I reviewed this chart, the patient history, and the APPRENTICE PATTERN MAKER's/PA's documented findings as above. We discussed and formulated the assessment and plan as above with the additions below.-Dr. Awan Patient states that she felt dizzy after walking a long ways in the halls today. Now she is lying in bed and the dizziness is gone. She is reading the newspaper. She states she still feels kind of funny in her head but cannot exactly describe it. She denies any headache. She denies any nausea. She denies any confusion. She denies any blurry vision. She denies any shortness of breath or cough. She denies any pain. She denies any nausea or vomiting. She has not had a bowel movement since admission. She is urinating without difficulties. She does not have much of an appetite but is making herself eat. On exam she is alert and oriented 3 and in no acute distress. Speech is normal. Cranial nerves II through XII grossly intact. Motor strength is equal in upper and lower extremities. No focal deficits are seen. HEENT reveals pupils to be equal, sclera anicteric, oropharynx is moist. Chest is clear to auscultation. Cardiovascular reveals a regular rate and rhythm. Abdomen is soft and nontender. Extremities are free of edema. Skin is warm and dry and without rashes Will recheck lab work and orthostatics tomorrow. Possible discharge to home tomorrow. Otherwise, continue with current treatment. Son is coming tomorrow. She reiterates that she wants to try right on track program at discharge. She does not want home health. WILNER LANCE APRN March 21, 2017 11:22 DICK AWAN MD March 21, 2017 16:52
[2017-03-21] MEDS ORDERED: BISACODYL 10 MG SUPPOSITORY RECTALLY PRN (11:30)
[2017-03-21] MEDS ORDERED: REFRESH CLASSIC Eye Drops 0.4ml Dropperette BOTH EYES ONE (11:45)
[2017-03-21] MEDS ORDERED: REFRESH CLASSIC Eye Drops 0.4ml Dropperette BOTH EYES PRN (11:45)
[2017-03-21] MEDS: SENNA + DOCUSATE TAB PO SCH ×2 (12:04→22:05)
--- NOTE | 2017-03-21 14:05 | NUR ---
STATUS PT REPORTS THAT TODAY SHE HAS BEEN FEELING MUCH BETTER AND REPORTS SHE FEELS LIKE SHE CAN WALK WITHOUT ASSISTANCE. PT GRANDSON AND OTHER FAMILY VISITING. PT AMBULATED IN [facility] WITH FAMILY FOR 20 MINUTES WITH NO COMPLAINTS AND NO DIFFICULTY. UPON RETURNING TO ROOM PT REPORTS FEELING " A LITTLE LIGHT HEADED" HOWEVER REPORTS THAT WENT AWAY ALMOST IMMEDIATELY.
--- NOTE | 2017-03-21 14:20 | NUR ---
STATUS PT LAYING IN BED SITTING UP WITH FAMILY AT BEDSIDE VISITING. PT HAS NO COMPLAINTS OR NEEDS AT THIS TIME.
--- NOTE | 2017-03-21 15:58 | NUR ---
STATUS FOLLOW UP WITH PT. PT REPORTS SHE IS FEELING NOT WELL PRIOR TO AMBULATING WITH HER FAMILY. PT HAS HAD MULTIPLE VISITORS TODAY AND STILL HAS FAMILY VISITING AT BEDSIDE. PT REPORTS NO SPECIFIC COMPLAINTS OTHER THAN JUST NOT FEELING WELL. PT CONCERNED SHE MAY HAVE OVER DONE IT WITH THE AMBULATION. DR. SNYDER CALLED AT THIS TIME AND UPDATED ON PT STATUS. NOTHING NEW OR CHANGED AT THIS TIME WILL CONTINUE TO MONITOR PT.
--- NOTE | 2017-03-21 18:12 | NUR ---
SUMMARY PT A&O X3. PT PLEASANT AND COOPERATIVE WITH CARE. PT MAKES NEEDS KNOWN AND HAS VERY FEW NEEDS OR COMPLAINTS. PT HAD MANY VISITORS THROUGHOUT THE DAY AND AMBULATED FOR 20 MINUTE PERIOD. PT HER POST MASTECTOMY WITH LOW HGB. FOLLOWING AMBULATION PT REPORTS NOT FEELING WELL SHE HAD PRIOR TO THE AMBULATION. PT CONCERNED SHE MAY HAVE OVER DONE IT. PT HAD DISCUSSION WITH PHYSICIAN AT BEDSIDE. 2 RICARDO DRAINS PRESENT AND WITHOUT COMPLICATION IN LEFT CHEST, MINIMAL DRAINAGE. PT AMBULATES EASILY WITH WALKER AND STAND BY ASSIST. PT OFTEN DOES NOT WISH TO HAVE ASSISTANCE AMBULATING. PT ON ROOM AIR NO COMPLAINTS OF SOA OR PAIN THROUGHOUT SHIFT.
[2017-03-21] MEDS: ATORVASTATIN 40 MG TABLET PO SCH (22:05)
--- NOTE | 2017-03-21 22:10 | NUR ---
Patient expresses concern and worry about her bowels. She reports she does not remember when she had her last good bowel movement. Abdomen is soft, NON-distended; bowel sounds present X 4 quadrants. Pt. reports she does pass gas. PRN Ducolax suppository given.
--- NOTE | 2017-03-21 23:06 | PNF ---
DATE 03/21/2017 HISTORY The patient still has some dizziness and lightheadedness today. She does feel better than she did yesterday. The patient did undergo transfusion with 1 unit of packed red blood cells yesterday. Lovenox and Coumadin remain on hold at this time. INTAKE AND OUTPUT The patient had 35 mL of output from one Calin-Garza channel drain and no output from the other Calin-Garza channel drain over the last eight-hour shift. The patient had 45 mL of output from one Calin-Garza channel drain and no output from the other C[place]n-Garza channel drain during the eight-hour shift before that. The patient had 55 mL of output from one Calin-Garza channel drain and 40 mL of output from the other Calin-Garza channel drain during the eight-hour shift before that. PHYSICAL EXAMINATION VITAL SIGNS: Temperature is 97.4 degrees oral. Pulse is 70. Respiratory rate is 18. Blood pressure is 163/69. Oxygen saturation is 99% on room air. BREASTS: The left mastectomy wound looks good. There is some bruising at the mastectomy site. There does not seem to be any significant accumulation of fluid or blood clot anywhere beneath the mastectomy skin flaps. Overall appearance of the wound is good. LABORATORY DATA Hemoglobin is 10 and hematocrit is 30.3 this morning. IMPRESSION 1. Status post left mastectomy with left axillary sentinel lymph node dissection on 03/16/2017. 2. Anemia which is improved following transfusion of 1 unit of packed red blood cells yesterday. 3. Dizziness and lightheadedness. RECOMMENDATION Continue current care. Continue to hold Lovenox and Coumadin at this time. Continue to monitor hemoglobin and hematocrit. Continue to monitor the appearance of the wound and the Calin-Garza channel drain output. [facility]
[2017-03-22] VITALS (8 sets, daily range): BP systolic 95–138; BP diastolic 49–68; PULSE 71–78; RESP 12–20; TEMP 96.5–97.8; O2SAT 97–98
[2017-03-22 05:41] LABS: BASOPHILS % (AUTO) 0.3 % (0-2); EOSINOPHILS # (AUTO) 0.1 T/MM3 (0-0.5); EOSINOPHILS % (AUTO) 1.7 % (0-4); HCT - HEMATOCRIT 28.7 % (36-46); HGB - HEMOGLOBIN 9.7 GM/DL (12-16); LYMPHOCYTES # (AUTO) 1.1 T/MM3 (1-4.8); LYMPHOCYTES % (AUTO) 37.8 % (23-45); MEAN CORPUSCULAR HGB 27.7 UUG (26-34); MEAN CORPUSCULAR HGB CONC(MCHC 33.8 GM/DL (31-37); MONOCYTES # (AUTO) 0.1 T/MM3 (0-0.8); NEUTROPHILS #(AUTO)-ABSOLUTE 1.7 T/MM3 (1.8-7.7); NEUTROPHILS % (AUTO) 57.2 % (33-66)
[2017-03-22 05:47] LABS: ALBUMIN 3.4 G/DL (3.5-5.0); ALBUMIN/GLOBULIN RATIO 1.4 RATIO (1.1-2.2); ALKALINE PHOSPHATASE 84 U/L (38-126); ALT (SGPT) 60 U/L (9-52); ANION GAP 10 MEQ/L (5-15); AST (SGOT) 31 U/L (14-36); BUN/CREATININE RATIO 20 RATIO (6-26); CALCIUM 8.4 MG/DL (8.4-10.2); CHLORIDE 100 MEQ/L (98-107); CO2 - CARBON DIOXIDE 24 MEQ/L (22-30); CREATININE 0.5 MG/DL (0.7-1.2); GLOMERULAR FILTRATION RATE 118; GLUCOSE 107 MG/DL (65-110); POTASSIUM 4.4 MEQ/L (3.6-5); SODIUM 134 MEQ/L (134-144); TOTAL PROTEIN 5.9 G/DL (6.3-8.2)
--- NOTE | 2017-03-22 05:57 | NUR ---
END OF SHIFT SUMMARY: Alert and orientated; anxious at times. Worried about her bowels during the night; Ducolax Suppository given; results recorded in output interventions. Voids without difficulty. Taking food and fluids without problems. Lungs are clear. Heart rate 70's; tele shows Sinus Rhythum. Up with assistance of one; uses walker; steady on her feet; denies feeling dizzy/lightheaded. No drainage or redness surrounding Surgery incision to right chest. Two RICARDO Drains intact and patent; scant amount serous fluid collected in containers this morning.
[2017-03-22] MEDS ORDERED: POLYETHYL.GLYCOL 3350 PACKET 17gm PO SCH (09:00)
[2017-03-22] MEDS: SENNA + DOCUSATE TAB PO SCH (10:20)
[2017-03-22] MEDS: ATENOLOL 25 MG TABLET PO SCH (10:20)
[2017-03-22 12:19] LABS: HCT - HEMATOCRIT 31.6 % (36-46); HGB - HEMOGLOBIN 10.6 GM/DL (12-16); MEAN CORPUSCULAR HGB 27.8 UUG (26-34); MEAN CORPUSCULAR HGB CONC(MCHC 33.5 GM/DL (31-37); MEAN CORPUSCULAR VOLUME 82.9 UM3 (80-100); MEAN PLATELET VOLUME 10.1 UM3 (9.4-12.4); RED BLOOD COUNT 3.81 M/MM3 (4.00-5.20); WBC - WHITE BLOOD COUNT 8.2 T/MM3 (4.5-11.0)
--- NOTE | 2017-03-22 13:26 | PNF ---
DATE 03/22/17 HISTORY This patient has had some additional dizziness yet this morning. Lovenox and Coumadin remain on hold at this time. INTAKE AND OUTPUT The patient had 10 ml of output from one of her Calin-Garza channel drains and no output from the other Calin-Garza channel drain during the last eight hour shift. The patient had 25 ml of output from one Calin-Garza channel drain and 20 ml of output from the other Calin-Garza channel drain during the eight hour shift before that. The output for the Calin-Garza channel drains is not charted for the shift before that. The output is normal serosanguineous output. PHYSICAL EXAMINATION VITAL SIGNS: Pulse is 76. Blood pressure is 128/58 with the patient sitting. BREASTS: The left mastectomy wound looks good. There is some bruising at the mastectomy site. There does not seem be any significant accumulation of fluid or blood clot beneath the mastectomy skin flaps. Overall appearance of the wound is satisfactory. LABORATORY DATA Hemoglobin was 9.7 and hematocrit was 28.7 at 0523 hours this morning. White blood cell count was 3000 at that time. CBC was repeated at 1210 hours. Hemoglobin was 10.6 and hematocrit was 31.6 at 1210 hours. Repeat white blood cell count was 8200 at 1210 hours. IMPRESSION 1. Status post left mastectomy with left axillary sentinel lymph node dissection on 03/16/17. 2. Anemia which is stable at this time. 3. Continued dizziness. RECOMMENDATION Continue current care. Continue to monitor hemoglobin and hematocrit. Continue to monitor the appearance of the wound and the Calin-Garza channel drain output. The hospitalist service will evaluate the dizziness which the patient is experiencing. MAHESH
--- NOTE | 2017-03-22 15:00 | NUR ---
Status Patient alert and oriented x3. Patient has complained of some mild "fuzziness" in her head today, says it "feels like my head is swimming." Patient has had no complaints of pain. No PRN meds given. Patient was concerned about bowel function, had one BM today and several overnight per night nurse report. Patient ambulated in halls with nursing staff twice today, once with walker and once without walker and with gait belt. Patient has had no complaints of dizziness or lightheadedness. Has had adequate intake and output. No n/v/d. Patient eager to discharge home this afternoon.
[2017-03-22] MEDS ORDERED: ACET-62 PO (15:26)
[2017-03-22] MEDS ORDERED: POLY17PO18 PO (15:26)
--- NOTE | 2017-03-22 15:42 | DSPDOC ---
General Date Date DATE: 03/22/17 TIME: 15:28 Attending Physician Yokasta Awan MD Admitting Physician Yokasta Awan MD Consulting Physician Tierra Prince MD,Facs,Cws Admitting Diagnosis syncope with anemia Discharge Diagnosis Postoperative anemia-requiring 1 unit transfusion Syncope Chronic anticoagulation with Coumadin for hypercoagulable state Status post mastectomy coronary artery disease Lower GI bleed 1 month ago Breast cancer status post mastectomy 03/16/2017 Procedures None Laboratory Item Value Date Time Prothromb Time International Ratio 1.14 H 03/19/17 1213 Hemoglobin 10.6 GM/DL L 03/22/17 1210 Hemoglobin 9.7 GM/DL L 03/22/17 0523 Hemoglobin 10.0 GM/DL L 03/21/17 0526 Hemoglobin 9.1 GM/DL L # 03/20/17 1736 Hemoglobin 7.8 GM/DL L 03/20/17 0656 Hemoglobin 7.9 GM/DL L # 03/20/17 0029 Hemoglobin 9.1 GM/DL L 03/19/17 1654 Hemoglobin 8.4 GM/DL L 03/19/17 1214 Laboratory Tests Test 03/21/17 05:26 03/22/17 05:23 03/22/17 12:10 White Blood Count 6.5T/MM3 (4.5-11.0) 3.0T/MM3 (4.5-11.0) 8.2T/MM3 (4.5-11.0) Red Blood Count 3.66M/MM3 (4.00-5.20) 3.50M/MM3 (4.00-5.20) 3.81M/MM3 (4.00-5.20) Hemoglobin 10.0GM/DL (12-16) 9.7GM/DL (12-16) 10.6GM/DL (12-16) Hematocrit 30.3% (36-46) 28.7% (36-46) 31.6% (36-46) Mean Corpuscular Volume 82.8UM3 (80-100) 82.0UM3 (80-100) 82.9UM3 (80-100) Mean Corpuscular Hemoglobin 27.3UUG (26-34) 27.7UUG (26-34) 27.8UUG (26-34) Mean Corpuscular Hemoglobin Concent 33.0GM/DL (31-37) 33.8GM/DL (31-37) 33.5GM/DL (31-37) RDW Standard Deviation 47.8FL (36.9-50.2) 44.4FL (36.9-50.2) 46.5FL (36.9-50.2) Platelet Count 200T/MM3 (130-400) T/MM3 (130-400) 235T/MM3 (130-400) Mean Platelet Volume 10.2UM3 (9.4-12.4) UM3 (9.4-12.4) 10.1UM3 (9.4-12.4) Immature Granulocyte % (Auto) 0.2% (0.0-0.5) 0.0% (0.0-0.5) Neutrophils (%) (Auto) 49.5% (33-66) 57.2% (33-66) Lymphocytes (%) (Auto) 38.7% (23-45) 37.8% (23-45) Monocytes (%) (Auto) 6.1% (0-9.0) 3.0% (0-9.0) Eosinophils (%) (Auto) 5.2% (0-4) 1.7% (0-4) Basophils (%) (Auto) 0.3% (0-2) 0.3% (0-2) Absolute Immature Granulocyte (auto 0.01T/MM3 (0.00-0.03) 0.00T/MM3 (0.00-0.03) Absolute Neutrophils (auto) 3.2T/MM3 (1.8-7.7) 1.7T/MM3 (1.8-7.7) Absolute Lymphocytes (auto) 2.5T/MM3 (1-4.8) 1.1T/MM3 (1-4.8) Absolute Monocytes (auto) 0.4T/MM3 (0-0.8) 0.1T/MM3 (0-0.8) Absolute Eosinophils (auto) 0.3T/MM3 (0-0.5) 0.1T/MM3 (0-0.5) Absolute Basophils (auto) 0.0T/MM3 (0-0.2) 0.0T/MM3 (0-0.2) Turbidity < 20 (0-20) < 20 (0-20) Sodium Level 135MEQ/L (134-144) 134MEQ/L (134-144) Potassium Level 4.1MEQ/L (3.6-5) 4.4MEQ/L (3.6-5) Chloride Level 101MEQ/L (98-107) 100MEQ/L (98-107) Carbon Dioxide Level 26MEQ/L (22-30) 24MEQ/L (22-30) Anion Gap 8MEQ/L (5-15) 10MEQ/L (5-15) Blood Urea Nitrogen 11.0MG/DL (7-17) 10.0MG/DL (7-17) Creatinine 0.6MG/DL (0.7-1.2) 0.5MG/DL (0.7-1.2) Glomerular Filtration Rate Calc 95 118 BUN/Creatinine Ratio 18RATIO (6-26) 20RATIO (6-26) Glucose Level 99MG/DL (65-110) 107MG/DL (65-110) Calculated Osmolality 259MOSM/KG (261-280) 257MOSM/KG (261-280) Calcium Level 8.3MG/DL (8.4-10.2) 8.4MG/DL (8.4-10.2) Icterus Index < 2 (0-7) < 2 (0-7) Chemistry Specimen Hemolysis < 15 (0-25) 36 (0-25) Total Bilirubin 1.10MG/DL (0.20-1.30) Aspartate Amino Transf (AST/SGOT) 31U/L (14-36) Alanine Aminotransferase (ALT/SGPT) 60U/L (9-52) Alkaline Phosphatase 84U/L (38-126) Total Protein 5.9G/DL (6.3-8.2) Albumin 3.4G/DL (3.5-5.0) Globulin 2.5G/DL (2.4-3.6) Albumin/Globulin Ratio 1.4RATIO (1.1-2.2) Microbiology Blood cultures 2 negative Breast wound culture negative Radiology Chest x-ray on admission without focal pneumonia or congestive failure History of Present Illness Amber is a less than 82-year-old female who is known to the hospitalist services as she was admitted 03/02/17 with GI bleeding. He was found to have diverticulosis with colon polyps as well as a left breast mass. She was discharged in stable condition on 03/04/17. She then underwent a left mastectomy on 03/16/17 under the care of Dr Prince following findings consistent with invasive ductal carcinoma. She is chronically anticoagulated due to chronic hypercoagulable anticardiolipin. On 03/17 she received Lovenox and oral Coumadin, and was discharged home. She did present back to [facility] yesterday on 03/18 for an outpatient Lovenox injection, however, did not take oral Coumadin. This morning she awoke and did not feel well. She reported having increased amount of drainage in her RICARDO drains and it was noted to be bloody. She did take a regular aspirin, however, had no further Coumadin or Lovenox today. She contacted Dr. Prince's office this morning to report her change in status. She was advised present acutely for further evaluation, however, when her friends came to pick her up. She was found on the floor following a syncopal episode. EMS was then contacted and patient was transported to [facility] emergency room for further evaluation and treatment. Initial blood pressure was low, 80 systolic. He was given IV fluids, both by EMS and while in the emergency room and laboratory studies were obtained. It was found to be anemic with a hemoglobin of 8.4, RBCs 2.91, WBC 7.5, hematocrit 25.6, platelet count 178. Sodium is 138, potassium 3.6, BUN 10, creatinine 0.7, glucose 115. Troponin is undetectable. Venous lactate 1.6. Urinalysis is negative. Chest x- ray is unremarkable. Given findings of anemia complicated by patient's postoperative status as well as chronic anticoagulation. The hospitalist services were contacted and accepted patient for outpatient admission for further evaluation and treatment. Dr. Prince was contacted for further surgical consultation. Did review advanced directives with patient and daughter. Patient does wish to be a full code. Hospital Course The patient was admitted on 03/19/2017 after having an episode of syncope. She had undergone mastectomy on 03/16/2017 and was discharged from the hospital on 03/18/[address] On 03/17/2017 she started postoperative Lovenox and Coumadin. On 03/19/2017 the patient had increased bloody drainage prior to her syncopal episode. She was somewhat anemic preoperatively after having hospitalization for GI bleed in mid February 2017. On admission the patient had hypotension with blood pressure of 80 systolic. She was given IV fluids. Anticoagulation was held. He was given 1 unit of blood on 03/20/2017 for a hemoglobin of 7.8. Since that time hemoglobin has improved and on the day of discharge is 10.6. Post mastectomy drains are having decreased output. The patient has not had any GI bleeding. She has been up and walking in the halls and doing well without a walker. She has had occasional lightheadedness but none today. She denies any shortness of breath or chest pain. Oxygenation has been good throughout the hospital course. She has been eating and drinking well. On the day of discharge she states she's feeling much stronger. On exam she is alert and oriented 3 and in no acute distress. Chest is clear to auscultation. Cardiovascular reveals a regular rate and rhythm. Abdomen is soft and nontender. Extremities are free of edema. We'll discharge to home today. I did talk with Dr. Prince and he would like to see the patient back in the clinic on Thursday. She is to keep her drains in place for now. The patient is to follow-up with Dr. Maddox tomorrow. He can decide when to restart aspirin, Coumadin and/or Lovenox. Consider repeating CBC tomorrow as well. Discharge plans discussed with the patient and her son. They're both in agreement with discharge plans with close follow-up. Was discussed with the patient that it's important to sit at the side of the bed or the side of her chair before standing and she stands up she should stand at the side of her chair or bed and make sure she is not lightheaded before she starts walking. If she has frequent lightheadedness or lightheadedness that does not go away with sitting or standing slowly she should notify her physician. If she has increased chest wound bleeding or any bloody stools she should notify her physician right away. She should also seek medical attention if she has shortness of breath, chest pains or fevers. Iron studies were ordered but are pending at this time and should be followed up by Dr. Maddox I will leave a message for Dr. Maddox on his voicemail regarding hospital findings and discharge plan. Greater than 35 minutes of time was spent seeing and evaluating the patient and arranging for discharge. Problems: (1) Postoperative anemia Status: Acute Assessment & Plan: Present on admission, hemoglobin 8.4. 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 (12) Diverticulosis Status: Chronic (13) GI bleed Status: Resolved (14) Breast cancer, left Status: Resolved Code Status Full Code Home Meds Active Scripts Acetaminophen (Acetaminophen) 500 Mg Tablet, 1-2 TAB PO Q6H for pain, #60 TAB Prov:YOKASTA AWAN MD 03/22/17 Polyethylene Glycol 3350 (Healthylax) 17 Gm Powd.pack, 17 G PO DAILY, #1 BOTTLE Prov:YOKASTA AWAN MD 03/22/17 Reported Medications Acetaminophen (Acetaminophen) 500 Mg Tablet, 1 TAB PO HS, #60 TAB 1 Refill 03/02/17 Carboxymethylcellulose Sodium (Refresh Tears) 15 Ml Drops, 1 DROP BOTH EYES BID 08/31/15 Atorvastatin Calcium (Atorvastatin Calcium) 80 Mg Tablet, 0.5 TAB PO HS 08/31/15 Atenolol (Atenolol) 25 Mg Tablet, 0.5 TAB PO DAILY 03/01/14 Discontinued Reported Medications Warfarin Sodium (Coumadin) 2.5 Mg Tablet, 1 TAB PO DAILY 05/03/09 Aspirin (Aspirin) 325 Mg Tablet, 1 TAB PO DAILY 05/03/09 Discontinued Scripts Ibuprofen (Ibuprofen) 400 Mg Tablet, 400 MG PO Q6HR Y for PAIN for 10 Days, #40 TAB Prov:DIVINE URIAS APRN 03/17/17 Hydrocodone/Acetaminophen ([place] 5-325 Tablet) 5-325 Tablet, 1 TAB PO Q5H Y for PAIN, #10 TAB Prov:ADONAYDIVINESHANIKA [place] APRN 03/17/17 Face to Face Encounter I met with patient on the day of dismissal and discussed follow up appointments , medications, and safety plan. Discharge Disposition Dismiss to home in stable condition Copies To 1: JAVIER MADDOX MD; FREDERICK BLANCHARD MD; TIERRA PRINCE MD, FACS, CWS YOKASTA AWAN MD March 22, 2017 15:31
--- NOTE | 2017-03-22 16:00 | NUR ---
Discharge Patient discharged to home at this time, accompanied by son. IV and telemetry d/c'd. Discharge instructions discussed with patient who verbalized understanding. Packet and belongings sent home with patient. RICARDO drain care discussed with patient who voiced understanding. Patient left via wheelchair.
[2017-03-23 02:12] LABS: FERRITIN 29.1 NG/ML (11-264)
--- NOTE | 2017-03-23 10:50 | PDONTRACK ---
Right on Track Program Date of Discharge March 22, 2017 at 16:00 Scheduled Acetaminophen (Acetaminophen), 1 TAB PO HS, (Reported) Acetaminophen (Acetaminophen), 1-2 TAB PO Q6H Atenolol (Atenolol), 0.5 TAB PO DAILY, (Reported) Atorvastatin Calcium (Atorvastatin Calcium), 0.5 TAB PO HS, (Reported) Carboxymethylcellulose Sodium (Refresh Tears), 1 DROP BOTH EYES BID, (Reported) Polyethylene Glycol 3350 (Healthylax), 17 G PO DAILY Discontinued Medications Aspirin (Aspirin), 1 TAB PO DAILY, (Reported) Hydrocodone/Acetaminophen ([place] 5-325 Tablet), 1 TAB PO Q5H PRN for PAIN Ibuprofen (Ibuprofen), 400 MG PO Q6HR PRN for PAIN Warfarin Sodium (Coumadin), 1 TAB PO DAILY, (Reported) Date: March 23, 2017 Right on Track Program: 24 Hour Follow-Up Discharge Summary Received: Yes Care Plan Received: Yes Follow up: Follow up Tests Reviewed (Iron level was low at 31 - F/U with Dr. Oneal about taking iron supplements), Follow Up Appt. Scheduled (03/24/17 at 1120) Education: Diagnosis Ed. Review, Education to Editor Publications Referrals: Case Management Total LACE Score: 7 Comments I spoke with Amber Hughes on 03/23/17. Her first night at home went well. However , her BP was low this morning at 76/41 and she felt very weak. She drank fluids and when she rechecked her BP it improved to 113/57. She has not restarted the ASA and Coumadin, and plans to discuss this with Dr. Oneal at her appt. tomorrow. She notes very little drainage in one of the drains and less than 20 mL in the other. We reviewed her labs on discharge, and I informed her that her iron level was low at 31 and she should talk to Dr. Oneal about starting an iron supplement. She had no questions on her discharge instructions. Problems: (1) Postoperative anemia Status: Acute Assessment & Plan: Present on admission, hemoglobin 8.4. 5/5: HGB decreased to 7.8 - Transfusion 1 unit pRBC given (2) Syncope Status: Acute (3) correction current use of anticoagulant Status: Chronic Assessment & Plan: Chronically on Coumadin (4) S/P mastectomy Status: Acute Assessment & Plan: On 03/16/17 under the care of Dr. Lincoln (5) CAD (coronary artery disease) Status: Chronic (6) Hypercoagulable state Status: Chronic (7) Anticardiolipin antibody positive Status: Chronic (8) GI bleed Status: Resolved (9) Breast cancer, left Status: Resolved Copies To 1: JAVIER ONEAL MD, KAREN D APRN March 23, 2017 10:48
--- NOTE | 2017-03-26 12:40 | PDONTRACK ---
Right on Track Program Date of Discharge March 22, 2017 at 16:00 Scheduled Atenolol (Atenolol), 12.5 MG PO HS, (Reported) Atorvastatin Calcium (Atorvastatin Calcium), 40 MG PO HS, (Reported) Carboxymethylcellulose Sodium (Refresh Tears), 1 DROP BOTH EYES BID, (Reported) Polyethylene Glycol 3350 (Healthylax), 17 G PO DAILY Warfarin Sodium (Warfarin Sodium), 1 MG PO DAILY, (Reported) Scheduled PRN Acetaminophen (Acetaminophen), 500-1,000 MG PO Q6H PRN for PAIN, (Reported) Date: March 26, 2017 Right on Track Program: 7-14Day [id number] Discharge Summary Received: Yes Care Plan Received: Yes Follow up: Follow Up Appt. Scheduled Education: Diagnosis Ed. Review, Education to Paper Cone Maker Referrals: Case Management Total LACE Score: 7 Comments I visited Amber at her home on 03/26/17. Family has been staying with her since hospital discharge and today her sister Michelle was present during my visit. Below is a summary of our conversation: Resources: While Amber lives alone, she has a few supportive neighbors who have volunteered to drive her to and from appointments or to come and stay with her. Her sisters all live out of town, and currently one of them is with her now, but she'll be leaving tomorrow afternoon. She might ask her niece to stay with her for a few days, since she's still feeling weak and tired from her recent hospitalizations and surgeries. When she's cleared by her doctors, Amber plans on driving again. She also has excellent samaritan support. Barriers: Cell phone service is spotty. She likes to go on walks on the gravel roads but doesn't have a good connection. This is worrisome for her family and for Amber. She is looking into getting a [employer]. She admits that she doesn't like to ask for help or call her doctor (she hates to bother the medical team) - and this could create an issue of inadvertently delaying treatment. Medication reconciliation: She has restarted her Coumadin and is going to the hospital every day for Lovenox injections. Her INR yesterday was 1.07. She has not restarted her ASA. She also takes Atenolol and Atorvastatin. She isn't taking Tramadol (hasn't needed it). I noticed that her iron level, which was pending at time of discharge, came back low at 31 and she wasn't taking FeSO4. Self-monitoring: She checks her blood pressure when she feels lightheaded. This morning it was 107/52. She demonstrated how she used her cuff and it was 129/61 on repeat. We talked about having low blood pressure, and to hold atenolol if SBP <110. She is afraid of passing out again, so by holding her BB we may be able to prevent symptoms. Amber also manages her 2 RICARDO drains. She emptied both this morning. She estimated that there was 1/8th of a teaspoon in one and the other one drained out 15 mL. She hasn't noticed an increase in bloody drainage output since being on Lovenox or restarting Coumadin. Health Literacy: No concerns. 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 Depression screen: Negative. Before her GI bleed and cancer diagnosis, she rated her QOL as "Excellent". Now, she would rate it as "Poor". Nutritional screen: At risk of malnutrition because of reduced appetite and recent stressful events. Fall risk: She's at risk of falling because of age, diagnoses, impaired stamina. We reviewed steps she can take to reduce her fall risk at home. She states she won't go down her basement stairs yet because her legs still feel too weak. She sees an production control scheduler in [place] regularly. ADLs & IADLs: She's independent in all. Cognitive evaluation: She declined SLUMS. Goal setting: She'd like to be able to walk 2 miles a day, which is what she did before her GI bleed. We talked about starting slow, perhaps only 1/10th of a mile. She said even to walk to the mailbox (which is about 0.05 mile one-way) is difficult. She agreed, and will start with a lower distance goal and gradually work herself back up. Exam: Gen: A&O x3, pleasant, converses well Neuro: No facial droop, steady gait Lungs: CTAB Heart: RRR Chest: mastectomy incision is approximated and healing without evidence of purulent drainage, erythema, or swelling There is minimal serosanguineous drainage in both RICARDO drains. Abdomen: + bowel sounds, nontender Ext: No edema. She wears shoes with non-slip soles. Discussed w/pt and caregiver: Yes Recommendations for follow-up 1. She's already seen Dr. Maddox. 2. She will see Dr Prince tomorrow. She plans to ask about driving and when the drains may be removed. 3. Because of history of borderline low BP and lightheadedness and weakness, combined with her fear of passing out again, would recommend to consider parameters for atenolol; i.e. if her SBP is less than 110 mm Hg. I will check with Dr. Maddox to get his recommendations. 4. Will continue to follow in [facility]. I gave her my contact information. 5. Consider Lifeline, especially with poor cell phone medical office receptionist - she often goes for walks on the gravel roads. 03/27/17 Amber called me last night on 03/26 and told me that her blood pressure was 139 systolic, and she was instructed by Dr. Maddox's office to start taking double of her atenolol. I received a phone call from Amber in the morning on 03/27/17. She states she woke up feeling very faint and lightheaded. Her BP this morning was 83/35. She was eating breakfast and trying to drink fluids. I then spoke with Lucero from Dr. Maddox's office - Amber was supposed to continue her current dose of atenolol, which was 12.5 mg, and Dr. Maddox wanted her to f/u with Dr. Blanchard about any other dose reductions. We discussed the possibility of parameters, and Lucero will check with Dr. Maddox. She also mentioned that Amber should start taking OTC iron x about 3 months. I called Amber back and gave her instructions to go back to her routine dose of atenolol (half a tab), and to start OTC iron 324 mg + Vitamin C 500 mg in the morning. I encouraged her to continue checking her BP before taking her atenolol in the evening. Her sister, Michelle, is leaving to go back home to [place] this afternoon, but Amber is going to ask if another family member will stay with her over the weekend, which I told her was a good idea. She will be seeing Dr. Prince later this morning. 03/28/17 Amber presented to the ED for left upper chest wall swelling. Labs and imaging were done - I discussed with the ED STORE PERSON; suspect hematoma. 03/30/17 PHONE CALL: I spoke with Amber on 03/30/17. She feels better. The swelling to her left chest wall is about the same. She denied any redness, warmth, pain, fevers/chills, or incisional purulence. She denied feeling weak or dizzy and her BP this morning was 127/58. She has an appt scheduled with Dr. Prince on 04/01/17. She states that her last INR was still low at 1.1, so she continues to come in daily to get Lovenox injections. She states that her family left on 03/28, so she's been by herself. She feels safe at home; a grandson is planning on coming later this week. A friend is going to drive her to [facility] today for her shot. Will continue to follow. Problems: (1) Postoperative anemia Status: Acute Assessment & Plan: Present on admission, hemoglobin 8.4. 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 Prince (5) CAD (coronary artery disease) Status: Chronic (6) Anticardiolipin antibody positive Status: Chronic (7) GI bleed Onset Date: ~ 02/14/2017 Status: Resolved (8) Breast cancer, left Status: Resolved Copies To 1: JAVIER MADDOX MD; TIERRA PRINCE MD, FACS, CWS Copies To 2: FREDERICK BLANCHARD MD, KAREN D STORE PERSON March 26, 2017 12:34
== END 2017-03-22 16:00 | disposition home or self-care (01) ==
LOC: ED 11:35 → EDHOLD 14:15 → MED 14:56
PROVIDERS: ADMIT Hospitalist; ATTEND Internal Medicine
DX: D64.9 Anemia, unspecified (principal); R55 Syncope and collapse; Z79.01 Long term (current) use of anticoagulants; L76.34 Postprocedural seroma of skin and subcutaneous tissue following other procedure; Y83.6 Removal of other organ (partial) (total) as the cause of abnormal reaction of the patient, or of later complication, without mention of misadventure at the time of the procedure; I25.10 Atherosclerotic heart disease of native coronary artery without angina pectoris; I73.9 Peripheral vascular disease, unspecified; E78.5 Hyperlipidemia, unspecified; N30.11 Interstitial cystitis (chronic) with hematuria; K57.30 Diverticulosis of large intestine without perforation or abscess without bleeding; Z85.3 Personal history of malignant neoplasm of breast; D68.61 Antiphospholipid syndrome; Z79.899 Other long term (current) drug therapy; Z86.010 Personal history of colon polyps
CPT/HCPCS: 36415; 36416; 36430; 71020; 80048; 80053; 81003; 82728; 83540; 83550; 83605; 84484; 85018; 85025; 85027; 85610; 86850; 86900; 86901; 86922; 87040; 87070; 87075; 87077; 87186; 87205; 93005; 96360; 96361; 97162; 97166; 97535; 99284; A9270; G0378; G8978; G8979; G8987; G8988; G8989; J7030; P9016; 99218

== ENCOUNTER 2017-03-28 11:59 | Emergency (ER) | payer MEDICARE, OTHER ==
[~2017-03-28] VITALS: Ht 162.6 cm; Wt 66.0 kg
[~2017-03-28 11:59] MED LIST changes: +POLY17PO18 PO
[2017-03-28 12:00] VITALS: Ht 162.6 cm; Wt 66.0 kg
--- OUTSIDE RECORDS SUMMARY | 2017-03-28 12:03 | XMS REPORT | Continuity of Care Document ---
Author Author [facility] Organization [facility] Address Unknown Phone Unavailable Support Name Relationship Address Phone CINDY GAMEZ MD Caregiver [address] [place] [address] [place] [address] Unavailable DICK AWAN MD Caregiver [address] [place] [address] Unavailable JAVIER MADDOX MD Caregiver [address] [place] [id number] Unavailable GERMANIA LEONARD MD Caregiver [address] [place] [address] Unavailable DENISA GARCIA Next Of Kin [id number] [address] [place] [id number] Insurance Providers Guarantor Amber Hughes Address [address] [place] [address] Email DENIED 17 Payer [place] Policy Number [id number] Subscriber's Name Amber Hughes Relationship 18 Self Group Number [id number] Payer Medicare Policy Number [id number] Subscriber's Name Amber Hughes Relationship 18 Self Advance Directives Directive Response Recorded Date/Time Ordered Resuscitation Status Full Code 03/19/17 2:15pm Resuscitation Documents on File No 03/19/17 3:05pm DPOA for Healthcare Only Yes 03/19/17 3:33pm Living Will Yes 03/19/17 3:05pm Problems Active Problems Medical Problem Onset Date Status Anemia Unknown Acute Anticardiolipin antibody positive Unknown Chronic Anticoagulant long-term use Unknown Chronic Breast cancer, left Unknown Resolved Breast mass, left Unknown Acute CAD (coronary artery disease) Unknown Chronic 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 Colonic polyp Unknown Chronic Diverticulosis Unknown Chronic Dyslipidemia Unknown Chronic GI bleed Unknown Resolved Heart palpitations Unknown Acute Heart palpitations Unknown Acute Hypercoagulable state Unknown Chronic Hypovolemia Unknown Acute MCC current use of anticoagulant Unknown Chronic Microscopic hematuria Unknown Chronic PAD (peripheral artery disease) Unknown Chronic PVD (peripheral vascular disease) Unknown Chronic Postoperative anemia Unknown Acute Syncope Unknown Acute TIA (transient ischemic attack) Unknown Chronic Vertigo Unknown Acute Vitamin D deficiency Unknown Chronic Past Problems Medical Problem Onset Date Retinal detachment Unknown Medications Current Home Medications Medication Dose Units Route Directions Days Qty Instructions Start Date Acetaminophen 500 Mg Tablet 1 Tab Oral Bedtime 60 Tablet 03/02/17 Acetaminophen 500 Mg Tablet 1-2 Tab Oral Every 6 Hours for Pain 60 Tablet 03/22/17 Atenolol 25 Mg Tablet 0.5 Tab Oral Daily 03/01/14 Atorvastatin Calcium 80 Mg Tablet 0.5 Tab Oral Bedtime 08/31/15 Carboxymethylcellulose Sodium (Refresh Tears) 15 Ml Drops 1 Drop Both Eyes Twice A Day 08/31/15 Polyethylene Glycol 3350 (Healthylax) 17 Gm Powd.pack 17 G Oral Daily 1 Bottle 03/22/17 Past Home Medications Medication Directions Ordered Status [...] Hours as needed for Pain 08/31/15 Discontinued Aspirin 325 Mg Tablet, 1 Tab Oral Daily 05/03/09 Discontinued Ezetimibe/Simvastatin (Vytorin 10/80 Tablet) 1 Tab Tablet, 1 Tab Oral Bedtime 05/04/09 Discontinued Hydrocodone/Acetaminophen ([place] 5-325 Tablet) 5-325 Tablet, 1 Tab Oral Every 5 Hours as needed for Pain 03/17/17 Discontinued Ibuprofen 400 Mg Tablet, 400 Mg Oral Q6h/0300,0900,1500,2100 as needed for Pain 03/17/17 Discontinued Warfarin Sodium (Coumadin) 2.5 Mg Tablet, 1 Tab Oral Daily 05/03/09 Discontinued Social History Social History Problem Response Recorded Date/Time Onset Date Status S/P mastectomy 03/19/2017 2:21pm Unknown Active Reason for Hospitalization syncope/anemia 03/22/2017 3:30pm Not Applicable Not Applicable Hx Substance Use No 03/19/2017 12:08pm Not Applicable Not Applicable Hx Alcohol Use No 03/19/2017 12:08pm Not Applicable Not Applicable Has the pt used tobacco in the last 12 months No 03/19/2017 3:07pm Not Applicable Not Applicable Tobacco Usage none 03/01/2014 6:38pm Not Applicable Not Applicable Query Response Start Date Stop Date Smoking Status Never smoker Hospital Discharge Instructions Instructions: Care Instructions: Reason for Hospitalization: syncope/anemia I was in the hospital because (patient own words): HAD SURGERY THURSDAY AND TODAY I WAS BLEEDING AND PASSED OUT Discharge Diet: cardiac diet Discharge Activity: Light activity as tolerated Follow Up Appointments: Follow-up tomorrow with Dr. Maddox Follow-up Thursday with Dr. Prince Pending Lab / Results: Follow up w/ your PCP Wound/Incision Care: Keep drains in place. Empty drains daily and record amount from each drain and show records to your doctors Pain Management/Treatment: Tylenol Expected Signs/Symptoms: Mild drainage from chest drain sites, mild fatigue Notify Physician If: Frequent lightheadedness, increased bleeding from chest incision or drain sites, bloody stools, fevers, shortness of breath or chest pains During Business Hours:: Please call the physician's office at [phone] After Business Hours:: Please call [phone] and have the heating operators engineer page the physician. Condition at time of discharge: Good Plan of Care Discharge Date 03/22/17 4:00pm Disposition 01 DISCHARGED HOME, SELF-CARE Instructions/Education Provided Syncope (DC) Anemia (DC) Prescriptions See Medication Section Additional Instructions/Education Dr Maddox can decide when to restart your coumadin and aspirin. Your iron studies done in the hospital will need to be followed up by Dr Maddox Care Plan and Goals See Discharge Instructions Section Functional Status Query Response Date Recorded Mobility Status Ambulatory w/assist March 22, 2017 3:30pm Assistive Devices Standard Walker March 22, 2017 3:30pm Activity Limitations None March 22, 2017 3:30pm Feeding Ability Independent March 22, 2017 3:30pm Toileting Ability Independent March 22, 2017 3:03pm Grooming Ability Independent March 22, 2017 3:30pm Dressing Ability Independent March 22, 2017 3:30pm Driving Ability Independent March 22, 2017 3:30pm Housework Ability Independent March 22, 2017 3:30pm Meal Preparation Ability Independent March 22, 2017 3:30pm Stair Climbing Ability Assist March 22, 2017 3:30pm Ability to complete ADL's impeded by No change March 22, 2017 3:30pm Cognitive/Perceptual Impairments Impaired vision Impaired hearing March 22, 2017 3:30pm Visual Assistive Devices Glasses March 22, 2017 3:03pm Preferred Method of Learning Reading Demonstration March 22, 2017 3:03pm Allergies, Adverse Reactions, Alerts Allergen Type Severity Reaction Status Last Updated Sulfa (Sulfonamide Antibiotics) Allergy Intermediate HIVES Active 03/19/17 Pneumococcal conjugate vaccine Allergy Intermediate Active 03/19/17 Immunizations Query Response on File Recorded Date/Time Hx Influenza Vaccination Y fall 201503/19/17 3:07pm Hx Pneumococcal Vaccination N allergy reaction 03/19/17 3:07pm Hx Influenza Vaccination Y fall 201503/19/17 3:07pm Influenza Vaccine Hx 201503/20/17 12:22pm Tdap Vaccine Hx UNKNOWN - SKIN INTACT 11/30/16 8:23am Vital Signs Acute Vital Signs Vital Response Date/Time Temperature (Fahrenheit) 96.5 deg F (96.8 - 99.1) 03/22/2017 7:57am Temperature (Calculated Celsius) 35.21137 degrees C (36.0 - 37.3) 03/22/2017 7:57am Temperature Source Oral 03/17/2017 7:39am Pulse Rate (adult) 76 bpm (60 - 100) 03/22/2017 9:00am Respiratory Rate 12 breaths/min (10 - 20) 03/22/2017 7:57am O2 Sat by Pulse Oximetry 97 % (90 - 100) 03/22/2017 7:57am Oxygen Delivery Method Room Air 03/17/2017 12:30pm Oxygen Delivery Method Room Air 03/22/2017 7:57am Oxygen Flow Rate 2.00 L/min 03/16/2017 2:20pm Blood Pressure 102/56 mm Hg 03/22/2017 3:45pm Blood Pressure Source Automatic Cuff 03/22/2017 3:45pm Height (Feet) 5 feet 03/21/2017 11:28am Height (Inches) 4.00 inches 03/21/2017 11:28am Weight (Kilograms) 66.400 kg 03/22/2017 7:57am Body Mass Index (BMI) 26.2 03/19/2017 3:05pm Results Laboratory Results Test Name Result Units Flags Reference Collection Date/Time Result Date/ Time Comments Stool Occult Blood POSITIVE A 03/03/2017 12:21am 03/03/2017 12:27am White Blood Count 8.2 T/MM3 D 4.5-11.0 03/22/2017 12:10pm 03/22/2017 12: 20pm Red Blood Count 3.81 M/MM3 L 4.00-5.20 03/22/2017 12:10pm 03/22/2017 12: 21pm Hemoglobin 10.6 GM/DL L 12-16 03/22/2017 12:10pm 03/22/2017 12:20pm Hematocrit 31.6 % L 36-46 03/22/2017 12:10pm 03/22/2017 12:20pm Mean Corpuscular Volume 82.9 UM3 80-100 03/22/2017 12:10pm 03/22/2017 12:20pm Mean Corpuscular Hemoglobin 27.8 UUG 26-34 03/22/2017 12:10pm 2016 12:20pm Mean Corpuscular Hemoglobin Concent 33.5 GM/DL 31-37 03/22/2017 12:1003/22/2017 12:20pm RDW Standard Deviation 46.5 FL 36.9-50.2 03/22/2017 12:10pm 03/22/2017 12:20pm Platelet Count 235 T/MM3 130-400 03/22/2017 12:1003/22/2017 12:20pm Mean Platelet Volume 10.1 UM3 9.4-12.4 03/22/2017 12:10pm 03/22/2017 12 :20pm Neutrophils (%) (Auto) 57.2 % 33-66 03/22/2017 5:03/22/2017 5: 41am Lymphocytes (%) (Auto) 37.8 % 23-45 03/22/2017 5:03/22/2017 5: 41am Monocytes (%) (Auto) 3.0 % 0-9.0 03/22/2017 5:03/22/2017 5:41am Eosinophils (%) (Auto) 1.7 % 0-4 03/22/2017 5:03/22/2017 5:41am Basophils (%) (Auto) 0.3 % 0-2 03/22/2017 5:03/22/2017 5:41am Immature Granulocyte % (Auto) 0.0 % 0.0-0.5 03/22/2017 5:2016 5:41am Absolute Neutrophils (auto) 1.7 T/MM3 L 1.8-7.7 03/22/2017 5:2016 5:41am Absolute Lymphocytes (auto) 1.1 T/MM3 1-4.8 03/22/2017 5:2016 5:41am Absolute Monocytes (auto) 0.1 T/MM3 0-0.8 03/22/2017 5:03/22/2017 5:41am Absolute Eosinophils (auto) 0.1 T/MM3 0-0.5 03/22/2017 5:2016 5:41am Absolute Basophils (auto) 0.0 T/MM3 0-0.2 03/22/2017 5:03/22/2017 5:41am Absolute Immature Granulocyte (auto 0.00 T/MM3 0.00-0.03 03/22/2017 5: 03/22/2017 5:41am Prothromb Time International Ratio 1.14 H 0.76-1.04 03/19/2017 12:13pm 03/19/2017 6:05pm THERAPUTIC RANGE=2.00-3.00 FOR ANTI-THROMBOSIS THERAPUTIC RANGE=2.50-3.50 FOR IMPLANTED VALVE Icterus Index < 2 0-7 03/22/2017 5:03/22/2017 5:47am Chemistry Specimen Hemolysis 36 H 0-25 03/22/2017 5:03/22/2017 5: 47am 26-70: Specimen Exhibited Slight Hemolysis - can falsely elevate K (Potassium) and Urine Protein. Turbidity < 20 0-20 03/22/2017 5:03/22/2017 5:47am Sodium Level 134 MEQ/L 134-144 03/22/2017 5:03/22/2017 5:47am Potassium Level 4.4 MEQ/L 3.6-5 03/22/2017 5:03/22/2017 5:47am Chloride Level 100 MEQ/L 98-107 03/22/2017 5:03/22/2017 5:47am Carbon Dioxide Level 24 MEQ/L 22-30 03/22/2017 5:03/22/2017 5: 47am Anion Gap 10 MEQ/L 5-15 03/22/2017 5:03/22/2017 5:47am Blood Urea Nitrogen 10.0 MG/DL 7-03/22/2017 5:03/22/2017 5: 47am Creatinine 0.5 MG/DL L 0.7-1.2 03/22/2017 5:03/22/2017 5:47am BUN/Creatinine Ratio 20 RATIO 6-26 03/22/2017 5:03/22/2017 5:47am Glomerular Filtration Rate Calc 118 03/22/2017 5:03/22/2017 5: 47am Glucose Level 107 MG/DL 65-110 03/22/2017 5:03/22/2017 5:47am Calculated Osmolality 257 MOSM/KG L 261-280 03/22/2017 5:2016 5:47am Calcium Level 8.4 MG/DL 8.4-10.2 03/22/2017 5:03/22/2017 5:47am Total Bilirubin 1.10 MG/DL 0.20-1.30 03/22/2017 5:03/22/2017 5: 47am Alkaline Phosphatase 84 U/L D 38-126 03/22/2017 5:03/22/2017 5:55am Total Protein 5.9 G/DL L 6.3-8.2 03/22/2017 5:03/22/2017 5:47am Albumin 3.4 G/DL L 3.5-5.0 03/22/2017 5:03/22/2017 5:47am Globulin 2.5 G/DL 2.4-3.6 03/22/2017 5:03/22/2017 5:47am Albumin/Globulin Ratio 1.4 RATIO 1.1-2.2 03/22/2017 5:03/22/2017 5 :47am Aspartate Amino Transf (AST/SGOT) 31 U/L 14-36 03/22/2017 5:2016 5:47am Alanine Aminotransferase (ALT/SGPT) 60 U/L H 9-52 03/22/2017 5:05/2017 5:47am Troponin I < 0.012 ng/ml 0-0.12 03/19/2017 12:21pm 03/19/2017 12:50pm Troponin values with a difference of 55% increase from orginal troponin value represent a true biological DELTA value. (%increase Calc=Orginal Troponin value, divided by subsequent Troponin value, multiplied by 100) Plasma Lactate 1.0 MMOL/L 0.6-2.2 03/19/2017 4:54pm 03/19/2017 5:17pm Reason Tests Not Done CLOTTED SPECIMEN 03/20/2017 6:40am 2016 6:41am Tests Not Done CBC 03/20/2017 6:40am 03/20/2017 6:41am Specimen [place] [place] 03/20/2017 6:40am 2016 6:41am Urine Collection Type STRAIGHT CATH 03/19/2017 1:01pm 03/19/2017 1: 11pm Urine Color YELLOW YELLOW 03/19/2017 1:01pm 03/19/2017 1:11pm Urine Turbidity CLEAR CLEAR 03/19/2017 1:01pm 03/19/2017 1:11pm Urine Specific [place] 1.015 1.015-1.025 03/19/2017 1:01pm 2016 1:11pm Urine pH 7.5 5.0-8.0 03/19/2017 1:01pm 03/19/2017 1:11pm Urine Leukocyte Esterase NEGATIVE NEGATIVE 03/19/2017 1:01pm 2016 1:11pm Urine Nitrite NEGATIVE NEGATIVE 03/19/2017 1:01pm 03/19/2017 1:11pm Urine Protein NEGATIVE NEGATIVE 03/19/2017 1:01pm 03/19/2017 1:11pm Urine Glucose (UA) NEGATIVE NEGATIVE 03/19/2017 1:01pm 03/19/2017 1: 11pm Urine Ketones NEGATIVE NEGATIVE 03/19/2017 1:01pm 03/19/2017 1:11pm Urine Urobilinogen 0.2 EU/DL NORMAL 03/19/2017 1:01pm 03/19/2017 1: 11pm Urine Bilirubin NEGATIVE NEGATIVE 03/19/2017 1:01pm 03/19/2017 1: 11pm Urine Blood NEGATIVE NEGATIVE 03/19/2017 1:01pm 03/19/2017 1:11pm Urinalysis Comment MICROSCOPIC NOT IND. 03/19/2017 1:01pm 2016 1:11pm Microbiology Results Procedure Source Organism/Result Collection Date/Time Result Date/Time Result Status WOUND CULTURE DEEP TISS-AER/AN Breast, Left NO GROWTH AFTER 24 HOURS 2016 12:12pm 03/21/2017 7:07am Preliminary Blood Culture Peripheral/Iv Start NO GROWTH AFTER 72 HOURS 03/19/2017 1: 05pm 03/22/2017 1:07pm Preliminary Name: AMBER HUGHES Unit #: [id number] : 1935 Sex: F DISCHARGE SUMMARY Admit Date: 03/19/17 Report #: [id number] [facility] General Date Date DATE: 03/22/17 TIME: 15:28 Attending Physician Dick Awan MD Admitting Physician Dick Awan MD Consulting Physician Tierra Prince MD,Facs,Cws Admitting Diagnosis syncope with anemia Discharge Diagnosis Postoperative anemia-requiring 1 unit transfusion Syncope Chronic anticoagulation with Coumadin for hypercoagulable state Status post mastectomy coronary artery disease Lower GI bleed 1 month ago Breast cancer status post mastectomy 03/16/2017 Procedures None Laboratory Item Value Date Time Prothromb Time International Ratio 1.14 H 03/19/17 1213 Hemoglobin 10.6 GM/DL L 03/22/17 1210 Hemoglobin 9.7 GM/DL L 03/22/17 0523 Hemoglobin 10.0 GM/DL L 03/21/17 0526 Hemoglobin 9.1 GM/DL L # 03/20/17 1736 Hemoglobin 7.8 GM/DL L 03/20/17 0656 Hemoglobin 7.9 GM/DL L # 03/20/17 0029 Hemoglobin 9.1 GM/DL L 03/19/17 1654 Hemoglobin 8.4 GM/DL L 03/19/17 1214 Laboratory Tests Test 03/21/17 05:26 03/22/17 05:23 03/22/17 12:10 White Blood Count 6.5T/MM3 (4.5-11.0) 3.0T/MM3 (4.5-11.0) 8.2T/MM3 (4.5-11.0) Red Blood Count 3.66M/MM3 (4.00-5.20) 3.50M/MM3 (4.00-5.20) 3.81M/MM3 (4.00-5.20) Hemoglobin 10.0GM/DL (12-16) 9.7GM/DL (12-16) 10.6GM/DL (12-16) Hematocrit 30.3% (36-46) 28.7% (36-46) 31.6% (36-46) Mean Corpuscular Volume 82.8UM3 (80-100) 82.0UM3 (80-100) 82.9UM3 (80-100) Mean Corpuscular Hemoglobin 27.3UUG (26-34) 27.7UUG (26-34) 27.8UUG (26-34) Mean Corpuscular Hemoglobin Concent 33.0GM/DL (31-37) 33.8GM/DL (31-37) 33.5GM/DL (31-37) RDW Standard Deviation 47.8FL (36.9-50.2) 44.4FL (36.9-50.2) 46.5FL (36.9-50.2) Platelet Count 200T/MM3 (130-400) T/MM3 (130-400) 235T/MM3 (130-400) Mean Platelet Volume 10.2UM3 (9.4-12.4) UM3 (9.4-12.4) 10.1UM3 (9.4-12.4) Immature Granulocyte % (Auto) 0.2% (0.0-0.5) 0.0% (0.0-0.5) Neutrophils (%) (Auto) 49.5% (33-66) 57.2% (33-66) Lymphocytes (%) (Auto) 38.7% (23-45) 37.8% (23-45) Monocytes (%) (Auto) 6.1% (0-9.0) 3.0% (0-9.0) Eosinophils (%) (Auto) 5.2% (0-4) 1.7% (0-4) Basophils (%) (Auto) 0.3% (0-2) 0.3% (0-2) Absolute Immature Granulocyte (auto 0.01T/MM3 (0.00-0.03) 0.00T/MM3 (0.00-0.03) Absolute Neutrophils (auto) 3.2T/MM3 (1.8-7.7) 1.7T/MM3 (1.8-7.7) Absolute Lymphocytes (auto) 2.5T/MM3 (1-4.8) 1.1T/MM3 (1-4.8) Absolute Monocytes (auto) 0.4T/MM3 (0-0.8) 0.1T/MM3 (0-0.8) Absolute Eosinophils (auto) 0.3T/MM3 (0-0.5) 0.1T/MM3 (0-0.5) Absolute Basophils (auto) 0.0T/MM3 (0-0.2) 0.0T/MM3 (0-0.2) Turbidity < 20 (0-20) < 20 (0-20) Sodium Level 135MEQ/L (134-144) 134MEQ/L (134-144) Potassium Level 4.1MEQ/L (3.6-5) 4.4MEQ/L (3.6-5) Chloride Level 101MEQ/L (98-107) 100MEQ/L (98-107) Carbon Dioxide Level 26MEQ/L (22-30) 24MEQ/L (22-30) Anion Gap 8MEQ/L (5-15) 10MEQ/L (5-15) Blood Urea Nitrogen 11.0MG/DL (7-17) 10.0MG/DL (7-17) Creatinine 0.6MG/DL (0.7-1.2) 0.5MG/DL (0.7-1.2) Glomerular Filtration Rate Calc 95 118 BUN/Creatinine Ratio 18RATIO (6-26) 20RATIO (6-26) Glucose Level 99MG/DL (65-110) 107MG/DL (65-110) Calculated Osmolality 259MOSM/KG (261-280) 257MOSM/KG (261-280) Calcium Level 8.3MG/DL (8.4-10.2) 8.4MG/DL (8.4-10.2) Icterus Index < 2 (0-7) < 2 (0-7) Chemistry Specimen Hemolysis < 15 (0-25) 36 (0-25) Total Bilirubin 1.10MG/DL (0.20-1.30) Aspartate Amino Transf (AST/SGOT) 31U/L (14-36) Alanine Aminotransferase (ALT/SGPT) 60U/L (9-52) Alkaline Phosphatase 84U/L (38-126) Total Protein 5.9G/DL (6.3-8.2) Albumin 3.4G/DL (3.5-5.0) Globulin 2.5G/DL (2.4-3.6) Albumin/Globulin Ratio 1.4RATIO (1.1-2.2) Microbiology Blood cultures 2 negative Breast wound culture negative Radiology Chest x-ray on admission without focal pneumonia or congestive failure History of Present Illness Amber is a less than 82-year-old female who is known to the hospitalist services as she was admitted 03/02/17 with GI bleeding. He was found to have diverticulosis with colon polyps as well as a left breast mass. She was discharged in stable condition on 03/04/17. She then underwent a left mastectomy on 03/16/17 under the care of Dr Prince following findings consistent with invasive ductal carcinoma. She is chronically anticoagulated due to chronic hypercoagulable anticardiolipin. On 03/17 she received Lovenox and oral Coumadin, and was discharged home. She did present back to [facility] yesterday on 03/18 for an outpatient Lovenox injection, however, did not take oral Coumadin. This morning she awoke and did not feel well. She reported having increased amount of drainage in her RICARDO drains and it was noted to be bloody. She did take a regular aspirin, however, had no further Coumadin or Lovenox today. She contacted Dr. Prince's office this morning to report her change in status. She was advised present acutely for further evaluation, however, when her friends came to pick her up. She was found on the floor following a syncopal episode. EMS was then contacted and patient was transported to [facility] emergency room for further evaluation and treatment. Initial blood pressure was low, 80 systolic. He was given IV fluids, both by EMS and while in the emergency room and laboratory studies were obtained. It was found to be anemic with a hemoglobin of 8.4, RBCs 2.91, WBC 7.5, hematocrit 25.6, platelet count 178. Sodium is 138, potassium 3.6, BUN 10, creatinine 0.7, glucose 115. Troponin is undetectable. Venous lactate 1.6. Urinalysis is negative. Chest x-ray is unremarkable. Given findings of anemia complicated by patient's postoperative status as well as chronic anticoagulation. The hospitalist services were contacted and accepted patient for outpatient admission for further evaluation and treatment. Dr. Prince was contacted for further surgical consultation. Did review advanced directives with patient and daughter. Patient does wish to be a full code. Hospital Course The patient was admitted on 03/19/2017 after having an episode of syncope. She had undergone mastectomy on 03/16/2017 and was discharged from the hospital on 03/18/[address] On 03/17/2017 she started postoperative Lovenox and Coumadin. On 03/19/2017 the patient had increased bloody drainage prior to her syncopal episode. She was somewhat anemic preoperatively after having hospitalization for GI bleed in mid February 2017. On admission the patient had hypotension with blood pressure of 80 systolic. She was given IV fluids. Anticoagulation was held. He was given 1 unit of blood on 03/20/2017 for a hemoglobin of 7.8. Since that time hemoglobin has improved and on the day of discharge is 10.6. Post mastectomy drains are having decreased output. The patient has not had any GI bleeding. She has been up and walking in the halls and doing well without a walker. She has had occasional lightheadedness but none today. She denies any shortness of breath or chest pain. Oxygenation has been good throughout the hospital course. She has been eating and drinking well. On the day of discharge she states she's feeling much stronger. On exam she is alert and oriented 3 and in no acute distress. Chest is clear to auscultation. Cardiovascular reveals a regular rate and rhythm. Abdomen is soft and nontender. Extremities are free of edema. We'll discharge to home today. I did talk with Dr. Prince and he would like to see the patient back in the clinic on Thursday. She is to keep her drains in place for now. The patient is to follow-up with Dr. Maddox tomorrow. He can decide when to restart aspirin, Coumadin and/or Lovenox. Consider repeating CBC tomorrow as well. Discharge plans discussed with the patient and her son. They're both in agreement with discharge plans with close follow-up. Was discussed with the patient that it's important to sit at the side of the bed or the side of her chair before standing and she stands up she should stand at the side of her chair or bed and make sure she is not lightheaded before she starts walking. If she has frequent lightheadedness or lightheadedness that does not go away with sitting or standing slowly she should notify her physician. If she has increased chest wound bleeding or any bloody stools she should notify her physician right away. She should also seek medical attention if she has shortness of breath, chest pains or fevers. Iron studies were ordered but are pending at this time and should be followed up by Dr. Maddox I will leave a message for Dr. Maddox on his voicemail regarding hospital findings and discharge plan. Greater than 35 minutes of time was spent seeing and evaluating the patient and arranging for discharge. Problems: (1) Postoperative anemia Status: Acute Assessment & Plan: Present on admission, hemoglobin 8.4. 5/5: HGB decreased to 7.8 - Transfusion 1 unit pRBC given (2) Syncope Status: Acute (3) MCC current use of anticoagulant Status: Chronic Assessment & Plan: Chronically on Coumadin (4) S/P mastectomy Status: Acute Assessment & Plan: On 03/16/17 under the care of Dr. 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 (12) Diverticulosis Status: Chronic (13) GI bleed Status: Resolved (14) Breast cancer, left Status: Resolved Code Status Full Code Home Meds Active Scripts Acetaminophen (Acetaminophen) 500 Mg Tablet, 1-2 TAB PO Q6H for pain, #60 TAB Prov:DICK AWAN MD 03/22/17 Polyethylene Glycol 3350 (Healthylax) 17 Gm Powd.pack, 17 G PO DAILY, #1 BOTTLE Prov:DICK AWAN MD 03/22/17 Reported Medications Acetaminophen (Acetaminophen) 500 Mg Tablet, 1 TAB PO HS, #60 TAB 1 Refill 03/02/17 Carboxymethylcellulose Sodium (Refresh Tears) 15 Ml Drops, 1 DROP BOTH EYES BID 08/31/15 Atorvastatin Calcium (Atorvastatin Calcium) 80 Mg Tablet, 0.5 TAB PO HS 08/31/15 Atenolol (Atenolol) 25 Mg Tablet, 0.5 TAB PO DAILY 03/01/14 Discontinued Reported Medications Warfarin Sodium (Coumadin) 2.5 Mg Tablet, 1 TAB PO DAILY 05/03/09 Aspirin (Aspirin) 325 Mg Tablet, 1 TAB PO DAILY 05/03/09 Discontinued Scripts Ibuprofen (Ibuprofen) 400 Mg Tablet, 400 MG PO Q6HR Y for PAIN for 10 Days, #40 TAB Prov:DIVINE URIAS IMPORTER OR EXPORTER 03/17/17 Hydrocodone/Acetaminophen ([place] 5-325 Tablet) 5-325 Tablet, 1 TAB PO Q5H Y for PAIN, #10 TAB Prov:DIVINE URIAS IMPORTER OR EXPORTER 03/17/17 Face to Face Encounter I met with patient on the day of dismissal and discussed follow up appointments , medications, and safety plan. Discharge Disposition Dismiss to home in stable condition Copies To 1: JAVIER MADDOX MD; FREDERICK BLANCHARD MD; TIERRA PRINCE MD, FACS, CWS DICK AWAN MD March 22, 2017 15:31 Procedures Procedure Status Date Provider(s) Colonoscopy and biopsy Completed 03/02/17 TIERRA PRINCE MD, FACS, CWS EXCISION OF ASCENDING COLON, ENDO, DIAGN Completed 03/04/17 TIERRA PRINCE MD, FACS, CWS EXCISION OF SIGMOID COLON, ENDO, DIAGN Completed 03/04/17 TIERRA PRINCE MD, FACS, CWS Bx breast 1st lesion us imag Completed 03/05/17 Ultrasound breast limited Completed 03/05/17 Tissue exam by pathologist Completed 03/05/17 Immunohisto antb addl slide Completed 03/05/17 Immunohisto antb 1st stain Completed 03/05/17 Tumor immunohistochem/comput Completed 03/05/17 [id number]"DIAGNOSTIC MAMMOGRAPHY, PRODUCING DIRECT DIGITAL IMAG Completed [id number]"DIAGNOSTIC MAMMOGRAPHY, PRODUCING DIRECT DIGITAL IMAG Completed [id number] SHOCK WAVE THERAPY; INVOLVING ELBOW EPI Completed Mastectomy with sentinel lymph node biopsy Completed 03/16/17 TIERRA PRINCE MD, FACS, CWS Encounters Encounter Location Arrival/Admit Date Discharge/Depart Date Attending Provider Discharged Inpatient (obs) [facility] 03/19/17 2:15pm 03/22/17 4: 00pm DICK AWAN MD Registered [facility] 03/18/17 10:15am JAVIER MADDOX MD Departed [facility] 03/16/17 7:56am 03/17/17 2:24pm TIERRA PRINCE FACS, MD Registered [facility] 03/05/17 9:05am TIERRA PRINCE FACS, MD Discharged Inpatient [facility] 03/02/17 9:42pm 03/04/17 3:10pm DAVID DEAN MD Registered [facility] 02/06/17 10:01am FREDERICK BLANCHARD MD
--- OUTSIDE RECORDS SUMMARY | 2017-03-28 12:03 | XMS REPORT | Continuity of Care Document ---
Author Author [facility] Organization [facility] Address Unknown Phone Unavailable Support Name Relationship Address Phone CINDY GAMEZ MD Caregiver [address] [place] [address] [place] [address] Unavailable DICK AWAN MD Caregiver [address] [place] [address] Unavailable JAVIER MADDOX MD Caregiver [address] [place] [phone] Unavailable GERMANIA LEONARD MD Caregiver [address] [place] [address] Unavailable DENISA GARCIA Next Of Kin [phone] [place] [phone] Insurance Providers Guarantor Amber Hughes Address [address] [place] [address] Email DENIED 17 Payer [place] Policy Number [id number] Subscriber's Name Amber Hughes Relationship 18 Self Group Number [id number] Payer Medicare Policy Number [id number] Subscriber's Name Amber Hughes Relationship 18 Self [...] palpitations Unknown Acute Hypercoagulable state Unknown Chronic 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 Microscopic hematuria Unknown Chronic PAD (peripheral artery disease) Unknown Chronic PVD (peripheral vascular disease) Unknown Chronic Postoperative anemia Unknown Acute TIA (transient ischemic attack) Unknown Chronic Vertigo Unknown Acute Vitamin D deficiency Unknown Chronic Past Problems Medical Problem Onset Date Anemia Unknown Hypovolemia Unknown Retinal detachment Unknown Syncope Unknown Medications Current Home Medications Medication Dose [...] 1 Tab Oral Bedtime 05/04/09 Discontinued Hydrocodone/Acetaminophen (Gardena 5-325 Tablet) 5-325 Tablet, 1 Tab Oral Every 5 Hours as needed for Pain 03/17/17 Discontinued Ibuprofen 400 Mg Tablet, 400 Mg Oral Q6h/0300,0900,1500,2100 as needed for Pain 03/17/17 Discontinued Warfarin Sodium (Coumadin) 2.5 Mg Tablet, 1 Tab Oral Daily 05/03/09 Discontinued Social History Social History Problem Response Recorded Date/Time Onset Date Status S/P mastectomy 03/19/2017 2:21pm Unknown Resolved Reason for Hospitalization syncope/anemia 03/22/2017 3:30pm Not [...] Hours:: Please call the physician's office at [phone] After Business Hours:: Please call [phone] and have the cork pressing machine operator page the physician. Condition at time [...] - 99.1) 03/22/2017 7:57am Temperature (Calculated Celsius) 35.61473 degrees C (36.0 - 37.3) 03/22/2017 7:57am [...] Corpuscular Hemoglobin Concent 33.5 GM/DL 31-37 03/22/2017 12:10pm 03/22/2017 12:20pm RDW Standard Deviation 46.5 FL 36.9-50.2 03/22/2017 12:10pm 03/22/2017 12:20pm Platelet Count 235 T/MM3 130-400 03/22/2017 12:10pm 03/22/2017 12:20pm Mean Platelet Volume 10.1 UM3 9.4-12.4 [...] 5:03/22/2017 5:47am Blood Urea Nitrogen 10.0 MG/DL 7-17 03/22/2017 5:03/22/2017 5: 47am Creatinine 0.5 MG/DL L [...] 1.0 MMOL/L 0.6-2.2 03/19/2017 4:54pm 03/19/2017 5:17pm Iron Level 31 UG/DL L 37-170 03/20/2017 5:49am 03/23/2017 1:35am Total Iron Binding Capacity 264 UG/DL 261-497 03/20/2017 5:49am 2016 1:11am Ferritin 29.1 NG/ML 11-264 03/20/2017 5:49am 03/23/2017 2:12am Reason Tests Not Done CLOTTED SPECIMEN 03/20/2017 6:40am 2016 6:41am Tests Not Done CBC 03/20/2017 6:40am 03/20/2017 6:41am [place] [place] 03/20/2017 6:40am 2016 6:41am Urine Collection Type STRAIGHT CATH 03/19/2017 1:01pm 03/19/2017 1: 11pm Urine Color YELLOW YELLOW 03/19/2017 1:01pm 03/19/2017 1:11pm Urine Turbidity CLEAR CLEAR 03/19/2017 1:01pm 03/19/2017 1:11pm Urine Specific [place] 1.015 1.015-1.025 03/19/2017 1:01pm 2016 1:11pm Urine [...] Status WOUND CULTURE DEEP TISS-AER/AN Breast, Left ALPHA-HEMOLYTIC STREPTOCOCCUS 12:12pm 03/23/2017 9:38am Preliminary Blood Culture Peripheral/Iv Start NO GROWTH AFTER 4 DAYS 03/19/2017 1:05pm 03/23/2017 1:07pm Preliminary Name: AMBER HUGHES Unit #: [id number] : 1935 Sex: F DISCHARGE SUMMARY Admit Date: 03/19/17 Report #: [id number] [facility] General Date Date DATE: 03/22/17 TIME: 15:28 [...] discharged home. 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 Assessment [...] for 10 Days, #40 TAB Prov:[employer]INE [employer] CONCRETE [employer]ANT SUPERVISOR 03/17/17 Hydrocodone/Acetaminophen (Gardena 5-325 Tablet) 5-325 Tablet, 1 TAB PO Q5H Y for PAIN, #10 TAB Prov:DIVINE URIAS CONCRETE PIPE PLANT SUPERVISOR 03/17/17 Face to Face Encounter I met [...] stain Completed 03/05/17 Tumor immunohistochem/comput Completed 03/05/17 135171"DIAGNOSTIC MAMMOGRAPHY, PRODUCING DIRECT DIGITAL IMAG Completed [id number]"DIAGNOSTIC MAMMOGRAPHY, PRODUCING DIRECT DIGITAL IMAG Completed [id number] SHOCK WAVE THERAPY; INVOLVING ELBOW EPI Completed Mastectomy with sentinel lymph node biopsy Completed 03/16/17 TIERRA PRINCE MD, FACS, CWS Encounters Encounter Location Arrival/Admit Date Discharge/Depart Date Attending Provider Discharged Inpatient (obs) [facility] 03/19/17 2:15pm 03/22/17 4: 00pm DICK AWAN MD Registered [facility] 03/18/17 10:15am JAVIER MADDOX MD Departed [facility] 03/16/17 7:56am 03/17/17 2:24pm TIERRA PRINCE FACS, MD Registered [facility] 03/05/17 9:05am TIERRA PRINCE FACS, MD Discharged Inpatient [facility] 03/02/17 9:42pm 03/04/17 3:10pm DAVID DEAN MD Discharged Recurring [facility] 02/06/17 10:01am 03/23/17 11: 59pm FREDERICK BLANCHARD MD
--- OUTSIDE RECORDS SUMMARY | 2017-03-28 12:04 | XMS REPORT | Continuity of Care Document ---
Author Author [facility] Organization [facility] Address Unknown Phone Unavailable Allergies Medications Problems [...] Status Pt. Type Provider Facility Loc./Unit Complaint [id number] 11/04/2013 14:10:00 2012 19:20:00 DIS Outpatient Kenia VASQUEZ, Jerome Richey [facility] KYLE
[2017-03-28] MEDS ORDERED: WARF1TAB6 PO (12:18)
--- NOTE | 2017-03-28 12:24 | ERPDOC ---
Departure Disposition Decision Date: March 28, 2017 Disposition Decision Time: 14:44 Disposition: 01 DISCHARGED HOME, SELF-CARE Impression Impression Impression: Primary Impression: Hematoma of chest wall Encounter type: initial encounter Laterality: left Qualified Codes: S20.212A - Contusion of left front wall of thorax, initial encounter Severity: Moderate Condition: Stable Seen By: Mid-level only Referrals: JAVIER ONEAL MD (Family) Patient Instructions: Hematoma (ED) Problems/Meds/Labs Reviewed?: Yes Medications reviewed and manag: Yes Additional Instructions: Monitor over the weekend for increased swelling, fever, tenderness, or erythema. If any of these noted then return to ER. Otherwise please follow up in clinic on Thursday with Dr Lincoln. Follow up care ordered?: Yes Mental Status: Alert HPI - Skin General General Chief Complaint: Skin Rash/Abscess Stated Complaint: LUMP ON CHEST, LEFT SIDE Time Seen by Provider: 12:15 Source: patient Exam Limitations: no limitations HPI - Skin General Initial Comments She had a left mastectomy 2 weeks ago for breast cancer. She states that she was doing well. Is on Lovenox injections and is bridging to Coumadin. Did come in today for her Lovenox infection and showed the nursing staff a swollen area on her left breast that she just noticed this morning. They advised that she come and get it looked at. She does know that it was not there last evening when she went to bed and just noticed it this morning. Is not tender or swollen at all. Denies any fever or chills. She did have her RICARDO drain removed in clinic yesterday. Occurred At: home Onset: Gradual Duration: 6-12 hrs Severity: moderate Location: torso (left breast) Possible Cause: no cause identified Associated Symptoms: denies symptoms Hx of Similar Symptoms: No Allergies: Coded Allergies: Sulfa (Sulfonamide Antibiotics) (Verified Allergy, Intermediate, HIVES, ) pneumococcal vaccine (Verified Allergy, Intermediate, 03/28/17) redness and swelling Past History Patient Surgical History Echocardiogram on 04/30/15 showed an EF of 55-65%, diastolic function was preserved. She had mild MR, TR and PI. Mild to moderate AI. 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 Left breast mastectomy-03/16/17 (Dr. Lincoln) Colonoscopy - 02/2017 ([place]) Cystoscopy in 2009 Bilateral cataracts, 2009 Cardiac bypass in 1999. MMK in 1995 CABG in 1992 NABIL/BSO in 1988 Cholecystectomy. Laser eye surgery Past Medical History Metabolic: hypertension ENMT: other Cardiac: CAD Hx Echocardiogram: Yes Date Last Echocardiogram: Aug 17, 2012 Ejection Fraction (%): 50 GI: gallbladder disease, ulcers Neurological: TIA Musculoskeletal: osteoarthritis Surgical History General: gallbladder, other Cardiac: cardiac bypass, cardiac cath Reproductive/: hysterectomy Joint: hip Family History Family PMH: FOUND: hypertension Vaccines Hx Influenza Vaccination: Yes (fall 2015) Hx Pneumococcal Vaccination: No (allergy reaction) Social History Does patient use chewing tobac: No Second Hand Exposure: No Substance Use Type: does not use Substance last used: unknown Alcohol Intake: none Last Drink: unknown Current Occupational Status: retired 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 Advance Directives: Yes Full Code Review of Systems Constitutional Constitutional: DENIES: chills, dizziness, fatigue, fever, weakness Cardiovascular Cardiac: DENIES: chest pain, dyspnea on exertion, orthopnea Rhythm/Rate: DENIES: irregular beat, palpitations Pulmonary Respiratory: DENIES: cough, dyspnea, sputum, tachypnea GI Upper Abdomen: DENIES: nausea, pain, vomiting Lower Abdomen: DENIES: constipation, diarrhea, pain Integumentary Skin: DENIES: rash Neurological General: DENIES: headache, numbness, tingling, weakness Physical Exam General General Nourishment: well nourished, well developed, appears stated age, no acute distress, adult General Body Habitus: well groomed Vitals and Pain First Documented Vital Signs Date Time Temp Pulse Resp B/P Pulse Ox O2 Delivery O2 Flow Rate FiO2 03/28/17 12:00 97.5 71 16 178/78 99 Room Air Weight: Kilograms: Height (feet): 5 Height (inches): 4.00 Triage Pain Scale: RN VS reviewed by Provider: Yes Normal Exams: Neck: Full range of motion, without adenopathy, JVD, bruits or thyromegaly Chest/Resp: Clear all smith, with good airflow, and symmetry bilaterally CV: Regular rate and rhythm, without murmur or gallop, Pulses 2+ all extremities, capillary refill, <2 seconds all ext., no pedal edema noted Abdomen: Bowel sounds positive, soft, non-tender, non-distended, no hepatosplenomegaly, masses or bruits noted Lymphatic: No lymphadenopathy, or lymphedema noted Integumentary: No rashes, hives, or bruising noted Neurologic: Patient is alert, and oriented Psychiatric: Patient exhibits, appropriate attention, emotion and affect Integumentary (brief) Integumentary Brief: FOUND: other (On the left lateral chest she has small opening where the RICARDO drain was removed yesterday. No drainage, erythema, or tenderness noted. On the left breast in about the 12 oclock position there is an area of swelling that is not fluctuance, non tender, and without erythema. This is mobile. Measures approximately 10cm x 4cm in size. There is a well healing incision on the left breast as well without erythema or drainage. ) Differential Diagnoses Considering: Abscess, Other (Hematoma, seroma, cancer mets) Progress Results/Orders Orders Procedure Category Date Status Time INR LAB 03/28/17 Complete Cbc W/Auto LAB 03/28/17 Complete Diff-Reflex Manual Bmp - Basic Metabolic LAB 03/28/17 Complete Panel Us Soft Tissue Chest US 03/28/17 Taken Wall Lab Results Laboratory Tests Test 03/28/17 12:51 White Blood Count 6.3T/MM3 Red Blood Count 4.07M/MM3 Hemoglobin 11.2GM/DL Hematocrit 33.7% Mean Corpuscular Volume 82.8UM3 Mean Corpuscular Hemoglobin 27.5UUG Mean Corpuscular Hemoglobin Concent 33.2GM/DL RDW Standard Deviation 45.7FL Platelet Count 260T/MM3 Mean Platelet Volume 9.9UM3 Immature Granulocyte % (Auto) 0.2% Neutrophils (%) (Auto) 57.2% Lymphocytes (%) (Auto) 30.6% Monocytes (%) (Auto) 7.5% Eosinophils (%) (Auto) 3.5% Basophils (%) (Auto) 1.0% Absolute Immature Granulocyte (auto 0.01T/MM3 Absolute Neutrophils (auto) 3.6T/MM3 Absolute Lymphocytes (auto) 1.9T/MM3 Absolute Monocytes (auto) 0.5T/MM3 Absolute Eosinophils (auto) 0.2T/MM3 Absolute Basophils (auto) 0.1T/MM3 Prothromb Time International Ratio 1.24 Turbidity < 20 Sodium Level 134MEQ/L Potassium Level 4.5MEQ/L Chloride Level 99MEQ/L Carbon Dioxide Level 25MEQ/L Anion Gap 10MEQ/L Blood Urea Nitrogen 9.0MG/DL Creatinine 0.6MG/DL Glomerular Filtration Rate Calc 95 BUN/Creatinine Ratio 15RATIO Glucose Level 99MG/DL Calculated Osmolality 257MOSM/KG Calcium Level 8.9MG/DL Icterus Index < 2 Chemistry Specimen Hemolysis < 15 Progress Progress WBC is 6.3 and without a left shift on differential. BMP is normal. US does show hematoma vs seroma vs abscess. I do think that this is likely a hematoma given her RICARDO removal yesterday or seroma. Did discuss HPI and exam and US with Dr Caballero. He does agree with letting patient go home and have her follow up with Dr Lincoln in clinic on Thursday. If any increased erythema, tenderness , or fever then return to ER. Ultrasound US : Reason for Exam: left chest wall swelling Ultrasound: Other (left chest wall) Interpretation: Abnormal (hematoma, seroma, or abscess) CONSUELO MEDEROS APRN March 28, 2017 12:24
--- OUTSIDE RECORDS SUMMARY | 2017-03-28 12:40 | XMS REPORT | Continuity of Care Document ---
Author Author [facility] Organization [facility] Address Unknown Phone Unavailable Allergies Medications Problems [...] Status Pt. Type Provider Facility Loc./Unit Complaint [id number] 11/04/2013 14:10:00 2012 19:20:00 DIS Outpatient Kenia VASQUEZ, Jerome Richey [facility] KYLE
[2017-03-28 12:59] LABS: BASOPHILS # (AUTO) 0.1 T/MM3 (0-0.2); EOSINOPHILS # (AUTO) 0.2 T/MM3 (0-0.5); EOSINOPHILS % (AUTO) 3.5 % (0-4); HCT - HEMATOCRIT 33.7 % (36-46); HGB - HEMOGLOBIN 11.2 GM/DL (12-16); IMMATURE GRANULOCYTE # (AUTO) 0.01 T/MM3 (0.00-0.03); IMMATURE GRANULOCYTE % (AUTO) 0.2 % (0.0-0.5); LYMPHOCYTES # (AUTO) 1.9 T/MM3 (1-4.8); LYMPHOCYTES % (AUTO) 30.6 % (23-45); MEAN CORPUSCULAR HGB 27.5 UUG (26-34); MEAN CORPUSCULAR HGB CONC(MCHC 33.2 GM/DL (31-37); MEAN CORPUSCULAR VOLUME 82.8 UM3 (80-100); MEAN PLATELET VOLUME 9.9 UM3 (9.4-12.4); MONOCYTES # (AUTO) 0.5 T/MM3 (0-0.8); MONOCYTES % (AUTO) 7.5 % (0-9.0); NEUTROPHILS #(AUTO)-ABSOLUTE 3.6 T/MM3 (1.8-7.7); NEUTROPHILS % (AUTO) 57.2 % (33-66); RED BLOOD COUNT 4.07 M/MM3 (4.00-5.20); WBC - WHITE BLOOD COUNT 6.3 T/MM3 (4.5-11.0)
[2017-03-28 13:00] LABS: INR 1.24 (0.76-1.04); PROTHROMBIN TIME 13.5 SEC (9.31-12.49)
[2017-03-28 13:04] LABS: ANION GAP 10 MEQ/L (5-15); BUN/CREATININE RATIO 15 RATIO (6-26); CALCIUM 8.9 MG/DL (8.4-10.2); CHLORIDE 99 MEQ/L (98-107); CO2 - CARBON DIOXIDE 25 MEQ/L (22-30); CREATININE 0.6 MG/DL (0.7-1.2); GLOMERULAR FILTRATION RATE 95; GLUCOSE 99 MG/DL (65-110); POTASSIUM 4.5 MEQ/L (3.6-5); SODIUM 134 MEQ/L (134-144)
--- NOTE | 2017-03-28 13:18 | NUR ---
US IN ROOM
[2017-03-28 14:50] VITALS: BP 155/76; PULSE 61; RESP 16; TEMP 97.5; O2SAT 99
--- NOTE | 2017-03-29 10:45 | DI ---
Indication: ITS.REASON: possible hematoma, large mass PROCEDURE: US SOFT TISSUE CHEST WALL: Encounter: Initial Comparison: None Technique: Grayscale and color Doppler sonographic imaging of the left chest wall area of concern was performed. Findings: Left chest wall shows a complex hypoechoic region measuring 5.3 x 5.3 x 10.6 cm probably representing hematoma. No internal vascular flow. Impression: Probable chest wall hematoma. Seroma and abscess are possible, but less likely. There is a preliminary report by virtual radiologic. .
== END 2017-03-28 14:50 | disposition home or self-care (01) ==
LOC: ED 11:59
DX: S20.212A Contusion of left front wall of thorax, initial encounter (principal); Z79.01 Long term (current) use of anticoagulants; X58.XXXA Exposure to other specified factors, initial encounter; Y93.9 Activity, unspecified; Y92.009 Unspecified place in unspecified non-institutional (private) residence as the place of occurrence of the external cause; Y99.8 Other external cause status
CPT/HCPCS: 36415; 80048; 85025; 85610